=== PATIENT | male | born 1960 | race Hispanic/Latino ===

== ENCOUNTER 2017-05-02 06:02 | Emergency (ER) | payer MEDICAID, OTHER ==
[2017-05-02 07:06] LABS: Basophils % (Auto) 0.7 % (0.0-1.8); Eosinophils % (Auto) 4.6 % (0.0-4.3); Hematocrit 36.6 % (35.5-45.6); Hemoglobin 12.3 gm/dl (11.8-15.2); Mean Corpuscular HGB Conc 34 % (32-34); Mean Corpuscular Hemoglobin 29 pg (28-32); Mean Corpuscular Volume 87 fl (84-94); Platelet Count 158 K/mm3 (140-440); Red Blood Count 4.21 M/mm3 (3.65-5.03); Red Cell Distribution Width 16.4 % (13.2-15.2)
[2017-05-02 07:18] LABS: Alanine Aminotransferase 31 units/L (7-56); Albumin 4.4 g/dL (3.9-5); Albumin/Globulin Ratio 1.3 %; Alkaline Phosphatase 226 units/L (35-129); Anion Gap 18 mmol/L; Blood Urea Nitrogen 18 mg/dL (9-20); Calcium 9.2 mg/dL (8.4-10.2); Carbon Dioxide 30 mmol/L (22-30); Chloride 94.1 mmol/L (98-107); Glucose 132 mg/dL (75-100); Lipase 27 units/L (13-60); Potassium 3.7 mmol/L (3.6-5.0); Sodium 138 mmol/L (137-145); Total Protein 7.9 g/dL (6.3-8.2)
--- NOTE | 2017-05-02 11:30 | Emergency Department Report ---
ED Abdominal Pain HPI - General Chief Complaint: Abdominal Pain Stated Complaint: AB PAIN Time Seen by Provider: 05/02/17 11:22 Source: patient Mode of arrival: Wheelchair Limitations: No Limitations - History of Present Illness Initial Comments: Patient states "I think I have food poisoning". He states he started the afternoon yesterday with [place] fried chicken. Then later he had a bologna sandwich with pimento cheese. The patient states he's had a normal bowel movement since he's been here. He has persistent generalized abdominal pain and nausea. He states he vomited a minimal amount of white material. Complaint: abdominal pain -: Gradual, hour(s) Location: diffuse Radiation: none Migration to: no migration Severity: moderate Quality: aching Consistency: intermittent Improves With: nothing Worsens With: nothing Context: other Associated Symptoms: denies other symptoms - Related Data Home Medications Medication Instructions Recorded Confirmed Last Taken Aspirin [Aspirin BABY CHEW TAB] 81 mg PO QDAY 01/20/14 01/06/17 01/19/14 08:00 Potassium Chloride [Klor-Con 8] 20 meq PO QDAY 01/20/14 01/06/17 01/19/14 08:00 Spironolact/Hydrochlorothiazid 1 each PO QDAY 01/20/14 01/06/17 01/19/14 08:00 [Spironolactone-Hctz 25-25 Tab] Torsemide [Demadex] 100 mg PO QDAY 01/20/14 01/06/17 01/19/14 08:00 ALPRAZolam [ALPRAZolam Odt] 0.5 mg PO BID PRN 01/06/17 01/06/17 Unknown Atorvastatin Calcium [Lipitor] 40 mg PO QHS 01/06/17 01/06/17 Unknown Carvedilol [Coreg] 3.125 mg PO BID 01/06/17 01/06/17 Unknown Nitroglycerin [Nitrostat] 0.4 mg SL Q5M PRN 01/06/17 01/06/17 Unknown Coumadin 5 mg PO 5XW 01/09/17 01/09/17 Unknown Coumadin 7.5 mg PO 2XW 01/09/17 01/09/17 Unknown Previous Rx's Medication Instructions Recorded Last Taken Type Prednisone [predniSONE 5 mg (6-Day 5 mg PO .TAPER #1 tab.ds.pk 01/09/17 Unknown Rx Pack, 21 Tabs)] Ondansetron [Zofran Odt] 4 mg PO Q6H PRN #7 tab.rapdis 05/02/17 Unknown Rx traMADol [Ultram] 50 mg PO Q6HR PRN #10 tablet 05/02/17 Unknown Rx Allergies Allergy/AdvReac Type Severity Reaction Status Date / Time No Known Allergies Allergy Verified 01/20/14 00:59 ED Review of Systems ROS: Stated complaint: AB PAIN Other details as noted in HPI Constitutional: denies: chills, fever Eyes: denies: eye pain, eye discharge, vision change ENT: denies: ear pain, throat pain Respiratory: denies: cough, shortness of breath, wheezing Cardiovascular: denies: chest pain, palpitations Endocrine: no symptoms reported Gastrointestinal: abdominal pain, nausea. denies: diarrhea Genitourinary: denies: urgency, dysuria Musculoskeletal: denies: back pain, joint swelling, arthralgia Skin: denies: rash, lesions Neurological: denies: headache, weakness, paresthesias Psychiatric: denies: anxiety, depression Hematological/Lymphatic: denies: easy bleeding, easy bruising ED Past Medical Hx - Past Medical History Previous Medical History?: Yes Hx Heart Attack/AMI: No Hx Congestive Heart Failure: Yes Hx Diabetes: No Hx Liver Disease: No Hx Asthma: Yes Hx COPD: Yes Hx Tuberculosis: No Hx HIV: No Additional medical history: Hypotension - Surgical History Past Surgical History?: Yes Hx Coronary Stent: No Hx Open Heart Surgery: Yes Hx Pacemaker: Yes ((R) side) Hx Internal Defibrillator: Yes Hx Appendectomy: No Additional Surgical History: difibrillator heart valve replacement. heart bypass @ 6 months old. open heart at [facility] @ 12 years old. open heart x 5 @ [place]. pig valve - Social History Smoking Status: Never Smoker Substance Use Type: None - Medications Home Medications: Home Medications Medication Instructions Recorded Confirmed Last Taken Type Aspirin [Aspirin BABY CHEW TAB] 81 mg PO QDAY 01/20/14 01/06/17 01/19/14 08:00 History Potassium Chloride [Klor-Con 8] 20 meq PO QDAY 01/20/14 01/06/17 01/19/14 08:00 History Spironolact/Hydrochlorothiazid 1 each PO QDAY 01/20/14 01/06/17 01/19/14 08:00 History [Spironolactone-Hctz 25-25 Tab] Torsemide [Demadex] 100 mg PO QDAY 01/20/14 01/06/17 01/19/14 08:00 History ALPRAZolam [ALPRAZolam Odt] 0.5 mg PO BID PRN 01/06/17 01/06/17 Unknown History Atorvastatin Calcium [Lipitor] 40 mg PO QHS 01/06/17 01/06/17 Unknown History Carvedilol [Coreg] 3.125 mg PO BID 01/06/17 01/06/17 Unknown History Nitroglycerin [Nitrostat] 0.4 mg SL Q5M PRN 01/06/17 01/06/17 Unknown History Coumadin 5 mg PO 5XW 01/09/17 01/09/17 Unknown History Coumadin 7.5 mg PO 2XW 01/09/17 01/09/17 Unknown History Prednisone [predniSONE 5 mg (6-Day 5 mg PO .TAPER #1 tab.ds.pk 01/09/17 Unknown Rx Pack, 21 Tabs)] Ondansetron [Zofran Odt] 4 mg PO Q6H PRN #7 tab.rapdis 05/02/17 Unknown Rx traMADol [Ultram] 50 mg PO Q6HR PRN #10 tablet 05/02/17 Unknown Rx ED Physical Exam - General Limitations: No Limitations General appearance: alert, in no apparent distress - Head Head exam: Present: atraumatic, normocephalic - Eye Eye exam: Present: normal appearance. Absent: scleral icterus - ENT ENT exam: Present: normal exam, mucous membranes moist - Neck Neck exam: Present: normal inspection - Respiratory Respiratory exam: Present: normal lung sounds bilaterally. Absent: respiratory distress - Cardiovascular Cardiovascular Exam: Present: regular rate, normal rhythm. Absent: systolic murmur, diastolic murmur, rubs, gallop - GI/Abdominal GI/Abdominal exam: Present: soft, normal bowel sounds. Absent: distended, tenderness, guarding, rebound, rigid - Rectal Rectal exam: Present: deferred - Extremities Exam Extremities exam: Present: normal inspection - Back Exam Back exam: Present: normal inspection - Neurological Exam Neurological exam: Present: alert, oriented X3, CN II-XII intact. Absent: motor sensory deficit - Psychiatric Psychiatric exam: Present: normal affect, normal mood - Skin Skin exam: Present: warm, dry, intact, normal color. Absent: rash ED Course Vital Signs 05/02/17 05/02/17 05/02/17 06:21 12:30 12:32 Temperature 97.7 F Pulse Rate 50 L Respiratory 22 20 20 Rate Blood Pressure 146/69 Blood Pressure [Left] O2 Sat by Pulse 97 98 Oximetry 05/02/17 05/02/17 05/02/17 13:00 14:17 14:30 Temperature Pulse Rate Respiratory 20 Rate Blood Pressure 107/53 113/52 Blood Pressure [Left] O2 Sat by Pulse 98 Oximetry 05/02/17 05/02/17 05/02/17 14:45 15:00 15:10 Temperature Pulse Rate Respiratory 20 Rate Blood Pressure 95/52 114/53 Blood Pressure [Left] O2 Sat by Pulse 99 100 Oximetry 05/02/17 05/02/17 05/02/17 15:15 15:30 15:40 Temperature Pulse Rate Respiratory 20 Rate Blood Pressure 92/45 101/51 Blood Pressure [Left] O2 Sat by Pulse 100 99 Oximetry 05/02/17 05/02/17 05/02/17 15:45 16:01 16:25 Temperature 97.9 F Pulse Rate 70 Respiratory 18 Rate Blood Pressure 101/51 101/51 Blood Pressure 125/70 [Left] O2 Sat by Pulse 99 100 99 Oximetry - Reevaluation(s) Reevaluation #1: She was given IV fluids, analgesia, antiemetics. His discharge in improved condition. On reexamination of his abdomen was totally benign. CT report was explained to the patient. There are no indications for inpatient care at this time. 05/02/17 17:04 ED Medical Decision Making - Lab Data Result diagrams: 05/02/17 06:42 05/02/17 06:42 Laboratory Results - last 24 hr 05/02/17 05/02/17 06:42 06:42 WBC 9.0 RBC 4.21 Hgb 12.3 Hct 36.6 MCV 87 MCH 29 MCHC 34 RDW 16.4 H Plt Count 158 Lymph % (Auto) 6.2 L Candler % (Auto) 8.7 H Eos % (Auto) 4.6 H Baso % (Auto) 0.7 Lymph # 0.6 L Candler # 0.8 Eos # 0.4 Baso # 0.1 Seg Neutrophils % 79.8 H Seg Neutrophils # 7.2 Sodium 138 Potassium 3.7 Chloride 94.1 L Carbon Dioxide 30 Anion Gap 18 BUN 18 Creatinine 1.2 Estimated GFR > 60 BUN/Creatinine Ratio 15.00 Glucose 132 H Calcium 9.2 Total Bilirubin 0.70 AST 29 ALT 31 Alkaline Phosphatase 226 H Total Protein 7.9 Albumin 4.4 Albumin/Globulin Ratio 1.3 Lipase 27 - Radiology Data Radiology results: report reviewed Critical care attestation.: If time is entered above; I have spent that time in minutes in the direct care of this critically ill patient, excluding procedure time. ED Disposition Clinical Impression: Enteritis Abdominal pain Qualifiers: Abdominal location: generalized Qualified Code(s): R10.84 - Generalized abdominal pain Ventral hernia Qualifiers: Obstruction and gangrene presence: without obstruction or gangrene Qualified Code(s): K43.9 - Ventral hernia without obstruction or gangrene Disposition: TO HOME OR SELFCARE Is pt being admited?: No Does the pt Need Aspirin: No Condition: Stable Instructions: Gastroenteritis (ED) Additional Instructions: Follow-up with your family doctor. Rx as needed. Light diet and advance as tolerated. Prescriptions: Ondansetron [Zofran Odt] 4 mg PO Q6H PRN #7 tab.rapdis PRN Reason: Nausea traMADol [Ultram] 50 mg PO Q6HR PRN #10 tablet PRN Reason: Pain Referrals: GRETA JAUREGUI MD, PHD [Primary Care Provider] - 3-5 Days Time of Disposition: 15:30
[2017-05-02] MEDS ORDERED: ZOFRAN IV ONE (11:39)
[2017-05-02] MEDS ORDERED: MORPHINE IV ONE ×2 (11:39→15:16)
[2017-05-02] MEDS ORDERED: NACL 0.9% 1000 ML 1,000 ML IV ONE (11:39)
[2017-05-02] MEDS ORDERED: NACL ONE (12:00)
--- NOTE | 2017-05-02 14:21 | Cat Scan Report ---
CT scan of abdomen and pelvis with IV contrast: History: Diffuse abdominal pain. Findings: Peribronchial thickening left lower lung without significant interval change. No pleural or pericardial effusion. Normal liver spleen pancreas and gallbladder. Small sliding hiatal hernia. Normal pancreas appear normal adrenals. Subcentimeter to C6 left kidney. Normal bladder. No free intraperitoneal fluid or air. No evidence of adenopathy. Atherosclerotic abdominal aorta without aneurysm. Normal appendix. No evidence of diverticulitis. Small ventral hernia containing small bowel loops. Few distended loops of small bowel probably suggestive of enteritis. Gaseous colon with moderate volume stool in colon. Impression: Peribronchial thickening left lower lobe probably related to bronchiolitis, without significant interval change. Subcentimeter cysts left kidney. Small ventral hernia containing small bowel loop without evidence of obstruction. Few distended loops of small bowel without significant wall thickening or stranding. Probably nonspecific or related to enteritis. No evidence of bowel obstruction.
[2017-05-02 16:30] VITALS: BP 125/70
== END 2017-05-02 16:25 | disposition home or self-care (01) ==
LOC: ED 06:02
DX: K52.9 Noninfective gastroenteritis and colitis, unspecified (principal); R10.84 Generalized abdominal pain; K43.9 Ventral hernia without obstruction or gangrene; J44.9 Chronic obstructive pulmonary disease, unspecified
CPT/HCPCS: 36415; 74177; 80053; 83690; 85025; 96361; 96374; 96375; 96376; 99284; J2270; J2405; J7030; Q9967

== ENCOUNTER 2017-05-12 17:34 | Emergency (ER) | payer MEDICAID ==
--- NOTE | 2017-05-12 21:24 | Emergency Department Report ---
- General Chief complaint: Wound/Laceration Stated complaint: ABSCESS Time Seen by Provider: 05/12/17 21:00 Source: patient Mode of arrival: Ambulatory Limitations: No Limitations - History of Present Illness Initial comments: This is a 56-year-old male nontoxic, well nourished in appearance, no acute signs of distress presents to the ED complaining of abscess to the right neck region times one week. Patient stated it was small and is getting bigger now. Patient denies any trauma to the region. Denies pus or drainage. He stated it is tender to touch. Patient denies any fever, chills, nausea, vomiting, chest pain, shortness of breath, stiff neck, headache, numbness or tingling. Patient denies any allergies. Past medical history includes asthma, CHF, COPD. PAtient stated last tetanus shot in 2015. MD complaint: abscess/boil -: Gradual, week(s) (1) Tetanus Up to Date: yes Location: neck Severity: mild Severity scale (0 -10): 8 Quality: aching Consistency: constant Improves with: none Worsens with: none Context: none Associated symptoms: denies other symptoms Treatments Prior to Arrival: none - Related Data Home Medications Medication Instructions Recorded Confirmed Last Taken Aspirin [Aspirin BABY CHEW TAB] 81 mg PO QDAY 01/20/14 01/06/17 01/19/14 08:00 Potassium Chloride [Klor-Con 8] 20 meq PO QDAY 01/20/14 01/06/17 01/19/14 08:00 Spironolact/Hydrochlorothiazid 1 each PO QDAY 01/20/14 01/06/17 01/19/14 08:00 [Spironolactone-Hctz 25-25 Tab] Torsemide [Demadex] 100 mg PO QDAY 01/20/14 01/06/17 01/19/14 08:00 ALPRAZolam [ALPRAZolam Odt] 0.5 mg PO BID PRN 01/06/17 01/06/17 Unknown Atorvastatin Calcium [Lipitor] 40 mg PO QHS 01/06/17 01/06/17 Unknown Carvedilol [Coreg] 3.125 mg PO BID 01/06/17 01/06/17 Unknown Nitroglycerin [Nitrostat] 0.4 mg SL Q5M PRN 01/06/17 01/06/17 Unknown Coumadin 5 mg PO 5XW 01/09/17 01/09/17 Unknown Coumadin 7.5 mg PO 2XW 01/09/17 01/09/17 Unknown Previous Rx's Medication Instructions Recorded Last Taken Type Prednisone [predniSONE 5 mg (6-Day 5 mg PO .TAPER #1 tab.ds.pk 01/09/17 Unknown Rx Pack, 21 Tabs)] Ondansetron [Zofran Odt] 4 mg PO Q6H PRN #7 tab.rapdis 05/02/17 Unknown Rx traMADol [Ultram] 50 mg PO Q6HR PRN #10 tablet 05/02/17 Unknown Rx Sulfamethoxazole/Trimethoprim 1 each PO BID #14 tablet 05/12/17 Unknown Rx [Bactrim DS TAB] traMADol [Ultram] 50 mg PO Q6HR PRN #15 tablet 05/12/17 Unknown Rx Allergies Allergy/AdvReac Type Severity Reaction Status Date / Time No Known Allergies Allergy Verified 01/20/14 00:59 Abscess Boil HPI - HPI Chief Complaint: Wound/Laceration Stated Complaint: ABSCESS Time Seen by Provider: 05/12/17 21:00 Home Medications: Home Medications Medication Instructions Recorded Confirmed Last Taken Aspirin [Aspirin BABY CHEW TAB] 81 mg PO QDAY 01/20/14 01/06/17 01/19/14 08:00 Potassium Chloride [Klor-Con 8] 20 meq PO QDAY 01/20/14 01/06/17 01/19/14 08:00 Spironolact/Hydrochlorothiazid 1 each PO QDAY 01/20/14 01/06/17 01/19/14 08:00 [Spironolactone-Hctz 25-25 Tab] Torsemide [Demadex] 100 mg PO QDAY 01/20/14 01/06/17 01/19/14 08:00 ALPRAZolam [ALPRAZolam Odt] 0.5 mg PO BID PRN 01/06/17 01/06/17 Unknown Atorvastatin Calcium [Lipitor] 40 mg PO QHS 01/06/17 01/06/17 Unknown Carvedilol [Coreg] 3.125 mg PO BID 01/06/17 01/06/17 Unknown Nitroglycerin [Nitrostat] 0.4 mg SL Q5M PRN 05/22/17 05/22/17 Unknown Coumadin 5 mg PO 5XW 01/09/17 01/09/17 Unknown Coumadin 7.5 mg PO 2XW 01/09/17 01/09/17 Unknown Previous Rx's Medication Instructions Recorded Last Taken Type Prednisone [predniSONE 5 mg (6-Day 5 mg PO .TAPER #1 tab.ds.pk 01/09/17 Unknown Rx Pack, 21 Tabs)] Ondansetron [Zofran Odt] 4 mg PO Q6H PRN #7 tab.rapdis 05/02/17 Unknown Rx traMADol [Ultram] 50 mg PO Q6HR PRN #10 tablet 05/02/17 Unknown Rx Sulfamethoxazole/Trimethoprim 1 each PO BID #14 tablet 05/12/17 Unknown Rx [Bactrim DS TAB] traMADol [Ultram] 50 mg PO Q6HR PRN #15 tablet 05/12/17 Unknown Rx Allergies/Adverse Reactions: Allergies Allergy/AdvReac Type Severity Reaction Status Date / Time No Known Allergies Allergy Verified 01/20/14 00:59 ED Review of Systems ROS: Stated complaint: ABSCESS Other details as noted in HPI Constitutional: denies: chills, fever Eyes: denies: eye pain, eye discharge, vision change ENT: denies: ear pain, throat pain Respiratory: denies: cough, shortness of breath, wheezing Cardiovascular: denies: chest pain, palpitations Endocrine: no symptoms reported Gastrointestinal: denies: abdominal pain, nausea, diarrhea Genitourinary: denies: urgency, dysuria Musculoskeletal: denies: back pain, joint swelling, arthralgia Skin: denies: rash, lesions Neurological: denies: headache, weakness, paresthesias Psychiatric: denies: anxiety, depression Hematological/Lymphatic: denies: easy bleeding, easy bruising ED Past Medical Hx - Past Medical History Hx Heart Attack/AMI: No Hx Congestive Heart Failure: Yes Hx Diabetes: No Hx Liver Disease: No Hx Asthma: Yes Hx COPD: Yes Hx Tuberculosis: No Hx HIV: No Additional medical history: Hypotension - Surgical History Hx Coronary Stent: No Hx Open Heart Surgery: Yes Hx Pacemaker: Yes ((R) side) Hx Internal Defibrillator: Yes Hx Appendectomy: No Additional Surgical History: difibrillator heart valve replacement. heart bypass @ 6 months old. open heart at [facility] @ 12 years old. open heart x 5 @ [place]. pig valve - Social History Smoking Status: Never Smoker Substance Use Type: None - Medications Home Medications: Home Medications Medication Instructions Recorded Confirmed Last Taken Type Aspirin [Aspirin BABY CHEW TAB] 81 mg PO QDAY 01/20/14 01/06/17 01/19/14 08:00 History Potassium Chloride [Klor-Con 8] 20 meq PO QDAY 01/20/14 01/06/17 01/19/14 08:00 History Spironolact/Hydrochlorothiazid 1 each PO QDAY 01/20/14 01/06/17 01/19/14 08:00 History [Spironolactone-Hctz 25-25 Tab] Torsemide [Demadex] 100 mg PO QDAY 01/20/14 01/06/17 01/19/14 08:00 History ALPRAZolam [ALPRAZolam Odt] 0.5 mg PO BID PRN 01/06/17 01/06/17 Unknown History Atorvastatin Calcium [Lipitor] 40 mg PO QHS 01/06/17 01/06/17 Unknown History Carvedilol [Coreg] 3.125 mg PO BID 01/06/17 01/06/17 Unknown History Nitroglycerin [Nitrostat] 0.4 mg SL Q5M PRN 01/06/17 01/06/17 Unknown History Coumadin 5 mg PO 5XW 01/09/17 01/09/17 Unknown History Coumadin 7.5 mg PO 2XW 01/09/17 01/09/17 Unknown History Prednisone [predniSONE 5 mg (6-Day 5 mg PO .TAPER #1 tab.ds.pk 01/09/17 Unknown Rx Pack, 21 Tabs)] Ondansetron [Zofran Odt] 4 mg PO Q6H PRN #7 tab.rapdis 05/02/17 Unknown Rx traMADol [Ultram] 50 mg PO Q6HR PRN #10 tablet 05/02/17 Unknown Rx Sulfamethoxazole/Trimethoprim 1 each PO BID #14 tablet 05/12/17 Unknown Rx [Bactrim DS TAB] traMADol [Ultram] 50 mg PO Q6HR PRN #15 tablet 05/12/17 Unknown Rx ED Physical Exam - General Limitations: No Limitations General appearance: alert, in no apparent distress - Head Head exam: Present: atraumatic, normocephalic, normal inspection - Eye Eye exam: Present: normal appearance, PERRL, EOMI. Absent: scleral icterus, conjunctival injection, nystagmus, periorbital swelling, periorbital tenderness Pupils: Present: normal accommodation - ENT ENT exam: Present: normal exam, normal orophraynx, mucous membranes moist, TM's normal bilaterally, normal external ear exam - Neck Neck exam: Present: normal inspection, full ROM. Absent: tenderness, meningismus, lymphadenopathy, thyromegaly - Respiratory Respiratory exam: Present: normal lung sounds bilaterally. Absent: respiratory distress, wheezes, rales, rhonchi, stridor, chest wall tenderness, accessory muscle use, decreased breath sounds, prolonged expiratory - Cardiovascular Cardiovascular Exam: Present: regular rate, normal rhythm, normal heart sounds. Absent: bradycardia, tachycardia, irregular rhythm, systolic murmur, diastolic murmur, rubs, gallop - GI/Abdominal GI/Abdominal exam: Present: soft, normal bowel sounds. Absent: distended, tenderness, guarding, rebound, rigid, diminished bowel sounds - Rectal Rectal exam: Present: deferred - Extremities Exam Extremities exam: Present: normal inspection, full ROM, normal capillary refill. Absent: tenderness, pedal edema, joint swelling, calf tenderness - Back Exam Back exam: Present: normal inspection, full ROM. Absent: tenderness, CVA tenderness (R), CVA tenderness (L), muscle spasm, paraspinal tenderness, vertebral tenderness, rash noted - Neurological Exam Neurological exam: Present: alert, oriented X3, CN II-XII intact, normal gait, reflexes normal - Psychiatric Psychiatric exam: Present: normal affect, normal mood - Skin Skin exam: Present: warm, dry, intact, normal color. Absent: rash - Other Other exam information: 3 cm abscess in the right neck region. Positive induration and fluctuance. Surrounding erythema noted. No pus or drainage noted. ED Course Vital Signs 05/12/17 17:57 Temperature 97.4 F L Pulse Rate 62 Respiratory 16 Rate Blood Pressure 113/78 O2 Sat by Pulse 93 Oximetry - Reevaluation(s) Reevaluation #1: 05/12/17 21:22 Patient is speaking in full sentences with no signs of distress noted. Reevaluation #2: 05/12/17 21:23 Patient tolerated procedure well with no signs of distress. Patient was instructed to return in 2 days for packing removal and reassessment of abscess. - I & D Right Neck Type of Procedure: Complex Site: right neck region Blade Size: 11 I & D Procedure: betadine prep, sterile drapes applied, sterile dressing applied , gauze wick placed Progress: Under sterile field, I used Betadine to cleanse the area. I then used 0.5% Marcaine with 25-gauge 5/8 needle to inject area for anesthetic purposes. Total volume injected 3 mL. I then used an 11 blade to make a 1 cm incision. About 2 mL's of purulent drainage has been noted. I then used a hemostat superficial to break the abscess formation. I then used sterile 0.9% normal saline flush to flush the wound with total volume of 40 mL used. I then put a 1 /4 iodoform packing to the incision. A sterile 4 x 4 with tape has been applied as dressing. Bleeding is under control. Patient tolerated the procedure well with no signs of distress noted. Critical care attestation.: If time is entered above; I have spent that time in minutes in the direct care of this critically ill patient, excluding procedure time. ED Disposition Clinical Impression: Abscess Disposition: DC-01 TO HOME OR SELFCARE Is pt being admited?: No Does the pt Need Aspirin: No Condition: Stable Instructions: Abscess (ED), Abscess Incision and Drainage (ED), Sulfamethoxazole/Trimethoprim (By mouth), Tramadol (By mouth) Additional Instructions: follow-up with a primary care doctor in 3-5 days or if symptoms worsen and continue return to emergency room as soon as possible possible. Return in 2 days. Emergency room for packing removal and reassessment of the abscess. Do not operate any machinery while taking Ultram due to sedation/drowsiness. Prescriptions: Sulfamethoxazole/Trimethoprim [Bactrim DS TAB] 1 each PO BID #14 tablet traMADol [Ultram] 50 mg PO Q6HR PRN #15 tablet PRN Reason: Pain Referrals: PRIMARY MD EDWIN [Primary Care Provider] - 3-5 Days RYAN MILLER MD [Staff Physician] - 3-5 Days [facility] [Outside] - 3-5 Days [facility] [Outside] - 3-5 Days Forms: Work/School Release Form(ED)
[2017-05-12 23:38] VITALS: BP 114/43
== END 2017-05-12 22:45 | disposition home or self-care (01) ==
LOC: ED 17:34
DX: L02.11 Cutaneous abscess of neck (principal); J45.909 Unspecified asthma, uncomplicated; J44.9 Chronic obstructive pulmonary disease, unspecified; I50.9 Heart failure, unspecified; Z79.82 Long term (current) use of aspirin
CPT/HCPCS: 99282

== ENCOUNTER 2018-03-11 19:01 | Emergency (ER) | payer MEDICAID ==
[2018-03-11 19:48] VITALS: BP 137/75
[2018-03-11] MEDS ORDERED: MOTRIN PO ONE (19:52)
[2018-03-11] MEDS ORDERED: NORCO 7.5/325 ONE (20:10)
[2018-03-11] MEDS ORDERED: NORCO 7.5/325 PO ONE (20:13)
[2018-03-11] MEDS ORDERED: TYLENOL ONE (20:30)
[2018-03-11] MEDS ORDERED: TYLENOL PO ONE (20:34)
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
[2018-03-11] MEDS ORDERED: DILAUDID IM ONE (22:34)
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
== END 2018-03-12 00:10 | disposition home or self-care (01) ==
LOC: ED 19:01
DX: S52.542A Smith's fracture of left radius, initial encounter for closed fracture (principal); S52.602A Unspecified fracture of lower end of left ulna, initial encounter for closed fracture; I50.9 Heart failure, unspecified; J44.9 Chronic obstructive pulmonary disease, unspecified; I95.9 Hypotension, unspecified; F17.200 Nicotine dependence, unspecified, uncomplicated; Z79.899 Other long term (current) drug therapy; Z98.890 Other specified postprocedural states; Y04.2XXA Assault by strike against or bumped into by another person, initial encounter; Y93.89 Activity, other specified; Y92.89 Other specified places as the place of occurrence of the external cause; Y99.8 Other external cause status
CPT/HCPCS: 29125; 73100; 96372; 99284; J1170

== ENCOUNTER 2018-03-19 08:25 | Day surgery (SDC) | payer MEDICAID ==
[~2018-03-19 08:25] MED LIST: ANCEF/STERILE WATER 2 GM/20 ML IV NR
[2018-03-19] MEDS ORDERED: NACL BACTERIOSTATIC INFILTRATI ONE (09:35)
[2018-03-19 09:58] LABS: Basophils # (Auto) 0.1 K/mm3 (0.0-0.1); Basophils % (Auto) 1.1 % (0.0-1.8); Eosinophils # (Auto) 0.5 K/mm3 (0.0-0.4); Eosinophils % (Auto) 7.3 % (0.0-4.3); Hematocrit 36.4 % (35.5-45.6); Hemoglobin 12.4 gm/dl (11.8-15.2); Lymphocytes # (Auto) 0.6 K/mm3 (1.2-5.4); Lymphocytes % (Auto) 9.5 % (13.4-35.0); Mean Corpuscular HGB Conc 34 % (32-34); Mean Corpuscular Hemoglobin 30 pg (28-32); Mean Corpuscular Volume 89 fl (84-94); Monocytes # (Auto) 0.8 K/mm3 (0.0-0.8); Platelet Count 166 K/mm3 (140-440); Red Blood Count 4.11 M/mm3 (3.65-5.03); Red Cell Distribution Width 15.4 % (13.2-15.2)
[2018-03-19] MEDS ORDERED: LACTATED RINGERS 1,000 ML IV SCH (10:00)
[2018-03-19] MEDS ORDERED: PROVENTIL IH NR (10:00)
[2018-03-19] MEDS ORDERED: VERSED IV NR (10:00)
[2018-03-19] MEDS ORDERED: DECADRON ONE (10:07)
[2018-03-19] MEDS ORDERED: MARCAINE 0.5% 30 ML INFILTRATI ONE (10:07)
[2018-03-19 10:08] LABS: INR 0.92 (0.87-1.13)
[2018-03-19 10:09] LABS: Partial Thromboplastin Time 27.3 Sec. (24.2-36.6)
[2018-03-19 10:13] LABS: Alanine Aminotransferase 29 units/L (7-56); Albumin 4.2 g/dL (3.9-5); BUN/Creatinine Ratio 23; Blood Urea Nitrogen 14 mg/dL (9-20); Calcium 8.9 mg/dL (8.4-10.2); Hemolysis Index 7
[2018-03-19] MEDS ORDERED: ZOFRAN IV PRN (10:13)
--- NOTE | 2018-03-19 10:14 | Anesthesia Day of Surgery ---
Anesthesia Day of Surgery - Day of Surgery Patient Examined: Yes Patient H&P Reviewed: Yes Patient is NPO: Yes
--- NOTE | 2018-03-19 10:15 | Anesthesia Consultation ---
Anesthesia Consult and Med Hx Date of service: 03/19/18 - Airway Anesthetic Teeth Evaluation: Poor, Chipped ROM Head & Neck: Adequate Mental/Hyoid Distance: Adequate Mallampati Class: Class III Intubation Access Assessment: Possibly Difficult - Pulmonary Exam CTA: Yes - Cardiac Exam Cardiac Exam: RRR - Pre-Operative Health Status ASA Pre-Surgery Classification: ASA4 Proposed Anesthetic Plan: General (TOF Repair, PULM HTN, Smoker, HTN, ICD for V Tach, Afib off eliquis) - Pulmonary Hx Smoking: Yes (1 PACK PER WEEK) Hx Asthma: Yes SOB: Yes (SOB) COPD: Yes (INHALER PRN) Hx Pneumonia: Yes Hx Sleep Apnea: No (FRANTZ PRE SCREEN LOW RISK) - Cardiovascular System Hx Hypertension: No Hx Coronary Artery Disease: Yes Hx Heart Attack/AMI: No Hx Angina: Yes (LAST NITRO 3 YRS AGO) Hx Pacemaker: Yes Hx Internal Defibrillator: Yes Hx Valvular Heart Disease: Yes Hx Peripheral Vascular Disease: Yes (LEGS) - Central Nervous System Hx Back Pain: Yes - Endocrine Hx End Stage Renal Disease: No Hx Liver Disease: No - Hematic Hx Anemia: No - Other Systems Hx Cancer: No
[2018-03-19] MEDS ORDERED: DILAUDID IV SCH (12:00)
[2018-03-19] MEDS ORDERED: DIPRIVAN 10 MG/ML IV ONE (12:19)
[2018-03-19] MEDS ORDERED: XYLOCAINE MPF 2% ONE (12:19)
[2018-03-19] MEDS ORDERED: DILAUDID ONE (12:20)
[2018-03-19] MEDS ORDERED: MARCAINE-EPI 0.5%-1:200,000 INFILTRATI ONE (12:44)
[2018-03-19] MEDS ORDERED: ePHEDrine SULFATE ONE (12:48)
--- NOTE | 2018-03-19 14:35 | Procedure Note ---
Date of procedure: 03/19/18 Pre-op diagnosis: displaced left distal radius fracture Post-op diagnosis: same Procedure: Open reduction internal fixation left distal radius Procedure Patient was brought to the OR after being given a axillary nerve block in preoperative holding for postop pain management Patient was placed on the OR table supine followed by induction and intubation by anesthesia the left upper extremity was then prepped and draped in the usual sterile manner. A timeout procedure was done to identify the patient and the correct operative site. Next the arm was exsanguinated followed by inflation of the pneumatic tourniquet to 250 mmHg. A volar incision was made parallel to the flexor carpi radialis tendon was taken down sharply to skin and subcutaneous tendon was retracted as well as protection of the neurovascular bundle following this the quadratus tendon was incised and removed from the distal radius the fracture site was identified patient was noted to have some mild comminution volarly with C-arm visualization the fracture was then reduced using longitudinal traction a temporary K wire was used to transfix the reduction site next day small locked distal radius plate was applied to the distal radius and held by way of 2 K wires A AP and lateral film was obtained showing good reduction of the fracture placement of the locked plate following this the plate was then secured to the bone with various screws beginning with the distal fragment followed by stabilization of the proximal fragment with 2 locked screws and 1 nonlocking again AP and lateral views were obtained showing good reduction of the fracture and placement of the hardware next the wound was copiously irrigated and meniscectomy was in a standard routine fashion with mucosal dressings were applied as well as a well-padded volar splint patient tolerated the procedure well, occasions he was sent to postanesthesia recovery in stable condition Anesthesia: yoli ALANIS Surgeon: DIANE PATTON [employer] Architect: JOE LOPEZ Estimated blood loss: minimal Pathology: none Condition: stable Disposition: PACU
[2018-03-19] MEDS: DILAUDID IV PRN ×2 (14:55→15:05)
[2018-03-19] MEDS ORDERED: NORCO 7.5/325 PO PRN (15:51)
[2018-03-19] MEDS ORDERED: MARCAINE 0.25% INFILTRATI ONE (16:17)
[2018-03-19 16:36] VITALS: BP 116/44
--- NOTE | 2018-03-19 16:37 | XRay Report ---
FLUOROSCOPIC XRAY LEFT WRIST 2 VIEWS:03/19/18 08:25:00 CLINICAL: Radius fracture at ORIF. FINDINGS: Status post ORIF of previously described comminuted distal radius fracture. The alignment of fragments in the AP view is not significantly changed compared to 03/11/18. However, no angulation in the lateral view as identified previously. For more detail, please refer to the operative report.
--- NOTE | 2018-03-19 17:39 | Post Anesthesia Evaluation ---
- Post Anesthesia Evaluation Patient Participated: Yes Airway Patent: Yes Stable Respiratory Function: Yes Nausea/Vomiting: No Temp > 96.8F: Yes Pain Manageable: Yes Adequeate Hydration: Yes Anesthesia Complications: No
== END 2018-03-19 17:38 | disposition home or self-care (01) ==
LOC: OR 08:25
PROVIDERS: ATTEND Orthopaedic Surgery
DX: S52.502A Unspecified fracture of the lower end of left radius, initial encounter for closed fracture (principal); J44.9 Chronic obstructive pulmonary disease, unspecified; I25.118 Atherosclerotic heart disease of native coronary artery with other forms of angina pectoris; I48.91 Unspecified atrial fibrillation; I50.9 Heart failure, unspecified; E78.00 Pure hypercholesterolemia, unspecified; F41.9 Anxiety disorder, unspecified; F32.9 Major depressive disorder, single episode, unspecified; Z87.891 Personal history of nicotine dependence; Z95.0 Presence of cardiac pacemaker; Z98.890 Other specified postprocedural states; Z95.1 Presence of aortocoronary bypass graft; Z91.81 History of falling; X58.XXXA Exposure to other specified factors, initial encounter; Y93.89 Activity, other specified; Y92.89 Other specified places as the place of occurrence of the external cause; Y99.8 Other external cause status
CPT/HCPCS: 25609; 36415; 73100; 80053; 85025; 85610; 85730; C1713; J0690; J1100; J1170; J2250; J2704; J7120

== ENCOUNTER 2021-05-07 16:46 | Inpatient (IN) | payer MEDICAID ==
--- NOTE | 2021-05-07 17:14 | Event Note ---
ED Screening Note ED Screening Note: Patient is a 60-year-old male presents emergency complaints of shortness of breath and diarrhea that began 2 weeks ago He denies any cough or chest pain He states he has swelling to his bilateral lower extremities He has a past medical history of COPD, CHF, tetralogy of Fallot, A. fib Patient has a pacemaker He was sent by Dr. Jackson, ceramic tile installation helper for admission and for pulmonology consultation This initial assessment/diagnostic orders/clinical plan/treatment(s) is/are subject to change based on patients health status, clinical progression and re- assessment by fellow clinical providers in the ED. Further treatment and workup at subsequent clinical providers discretion. Patient/guardian urged not to elope from the ED as their condition may be serious if not clinically assessed and managed. Initial orders include: labs, EKG, CXR
--- NOTE | 2021-05-07 17:46 | Emergency Department Report ---
ED Shortness of Breath HPI - General Chief Complaint: Dyspnea/Respdistress Stated Complaint: ROXANA Time Seen by Provider: 05/07/21 17:05 Source: patient Mode of arrival: Ambulatory Limitations: No Limitations - History of Present Illness Initial Comments: Patient presents with shortness of breath. Has been short of breath the last 3 to 4 days but is progressively getting worse. He is having a hard time lying flat because of the trouble breathing. He does describe orthopnea. His feet and ankles have been swollen. He knows he is retaining fluid. He believes he needs to be diuresed. Patient has a long history of heart trouble. 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 He has had multiple open heart surgeries since that time. Patient has had no cough. He has had no fever. There have been no chills. There is no vomiting or diarrhea. He denies having chest pain to me. Patient states he just feels like he needs to get fluid off. He went to his employment office clerk today, Dr. Meyer. He was directed here to be admitted. - Related Data Home Medications Medication Instructions Recorded Confirmed Last Taken Aspirin [Aspirin BABY CHEW TAB] 81 mg PO QDAY 01/20/14 05/04/18 03/15/18 Potassium Chloride [Klor-Con 8] 20 meq PO QDAY 01/20/14 05/04/18 03/15/18 Spironolact/Hydrochlorothiazid 1 each PO QDAY 01/20/14 05/04/18 03/15/18 [Spironolactone-Hctz 25-25 Tab] Atorvastatin Calcium [Lipitor] 40 mg PO QHS 01/06/17 05/04/18 03/15/18 Nitroglycerin [Nitrostat] 0.4 mg SL Q5M PRN 01/06/17 05/04/18 05/04/18 20:30 Apixaban [Eliquis] 5 mg PO BID 03/16/18 05/04/18 03/15/18 Colchicine [Mitigare] 0.6 mg PO DAILY 03/16/18 05/04/18 03/15/18 Metoprolol [Lopressor TAB] 25 mg PO DAILY 03/16/18 05/04/18 03/15/18 allopurinoL [Zyloprim] 100 mg PO QDAY 03/16/18 05/04/18 03/15/18 Cetirizine HCl [Allergy Relief] 10 mg PO DAILY 03/18/18 05/04/18 03/15/18 Torsemide [Demadex] 100 mg PO QDAY 03/18/18 05/04/18 03/15/18 Previous Rx's Medication Instructions Recorded Last Taken Type HYDROcodone/APAP 7.5-325 [Desmet 1 each PO Q6HR PRN #30 tablet 03/19/18 Unknown Rx 7.5-325 mg TAB] ALPRAZolam [Xanax] 1 mg PO BID #7 tablet 05/06/18 Unknown Rx Albuterol Mdi (or & Nicu Only) 2 puff IH QID PRN #1 inha 05/06/18 Unknown Rx [ProAir HFA Inhaler] Azithromycin [Zithromax TAB] 250 mg PO QDAY #2 tablet 05/06/18 Unknown Rx Prednisone [predniSONE 5 mg (6-Day 5 mg PO .TAPER #1 tab.ds.pk 05/06/18 Unknown Rx Pack, 21 Tabs)] Allergies Allergy/AdvReac Type Severity Reaction Status Date / Time acetaminophen [From Percocet] AdvReac Nausea Verified 05/05/18 07:04 hydrocodone AdvReac Nausea Verified 05/07/21 18:16 tramadol AdvReac Nausea Verified 05/05/18 07:04 ED Review of Systems ROS: Stated complaint: ROXANA Other details as noted in HPI Comment: All other systems reviewed and negative Constitutional: denies: fever Eyes: denies: eye pain ENT: denies: throat pain Respiratory: denies: cough Cardiovascular: denies: chest pain Endocrine: denies: unexplained weight loss Gastrointestinal: denies: abdominal pain Genitourinary: denies: dysuria Musculoskeletal: denies: back pain Skin: denies: rash Neurological: denies: headache Hematological/Lymphatic: easy bruising (Chronically) ED Past Medical Hx - Past Medical History Hx Hypertension: Yes Hx Heart Attack/AMI: No Hx Congestive Heart Failure: Yes (2016) Hx Diabetes: No Hx Liver Disease: No Hx Asthma: Yes Hx COPD: Yes (INHALER PRN) Hx Tuberculosis: No Hx HIV: No Additional medical history: Hypotension - Surgical History Hx Coronary Stent: No Hx Open Heart Surgery: Yes (X 2 CHILD, CABG 2013) Hx Pacemaker: Yes Hx Internal Defibrillator: Yes Hx Appendectomy: No Additional Surgical History: difibrillator heart valve replacement. heart bypass @ 6 months old. open heart at [facility] @ 12 years old. open heart x 5 @ [place]. pig valve, pacemaker - Family History Family history: other (Heart disease) - Social History Smoking Status: Former Smoker Substance Use Type: None - Medications Home Medications: Home Medications Medication Instructions Recorded Confirmed Last Taken Type Aspirin [Aspirin BABY CHEW TAB] 81 mg PO QDAY 01/20/14 05/04/18 03/15/18 History Potassium Chloride [Klor-Con 8] 20 meq PO QDAY 01/20/14 05/04/18 03/15/18 History Spironolact/Hydrochlorothiazid 1 each PO QDAY 01/20/14 05/04/18 03/15/18 History [Spironolactone-Hctz 25-25 Tab] Atorvastatin Calcium [Lipitor] 40 mg PO QHS 01/06/17 05/04/18 03/15/18 History Nitroglycerin [Nitrostat] 0.4 mg SL Q5M PRN 01/06/17 05/04/18 05/04/18 20:30 History Apixaban [Eliquis] 5 mg PO BID 03/16/18 05/04/18 03/15/18 History Colchicine [Mitigare] 0.6 mg PO DAILY 03/16/18 05/04/18 03/15/18 History Metoprolol [Lopressor TAB] 25 mg PO DAILY 03/16/18 05/04/18 03/15/18 History allopurinoL [Zyloprim] 100 mg PO QDAY 03/16/18 05/04/18 03/15/18 History Cetirizine HCl [Allergy Relief] 10 mg PO DAILY 03/18/18 05/04/18 03/15/18 History Torsemide [Demadex] 100 mg PO QDAY 03/18/18 05/04/18 03/15/18 History HYDROcodone/APAP 7.5-325 [Desmet 1 each PO Q6HR PRN #30 tablet 03/19/18 05/04/18 Unknown Rx 7.5-325 mg TAB] ALPRAZolam [Xanax] 1 mg PO BID #7 tablet 05/06/18 Unknown Rx Albuterol Mdi (or & Nicu Only) 2 puff IH QID PRN #1 inha 05/06/18 Unknown Rx [ProAir HFA Inhaler] Azithromycin [Zithromax TAB] 250 mg PO QDAY #2 tablet 05/06/18 Unknown Rx Prednisone [predniSONE 5 mg (6-Day 5 mg PO .TAPER #1 tab.ds.pk 05/06/18 Unknown Rx Pack, 21 Tabs)] ED Physical Exam - General Limitations: No Limitations, Other (Pulse ox was 100% on oxygen and normal. He was not hypoxic.) General appearance: alert, in distress (Moderate) - Head Head exam: Present: atraumatic, normocephalic, normal inspection - Eye Eye exam: Present: EOMI. Absent: scleral icterus - ENT ENT exam: Present: normal exam, mucous membranes moist - Neck Neck exam: Present: normal inspection, full ROM. Absent: meningismus - Respiratory Respiratory exam: Present: respiratory distress (Moderate), rales (Basis) - Cardiovascular Cardiovascular Exam: Present: regular rate, systolic murmur - GI/Abdominal GI/Abdominal exam: Present: soft. Absent: distended, tenderness - Extremities Exam Extremities exam: Present: normal capillary refill, pedal edema (Lateral 1+) - Back Exam Back exam: Absent: CVA tenderness (R), CVA tenderness (L) - Neurological Exam Neurological exam: Present: alert, oriented X3, CN II-XII intact, reflexes normal. Absent: motor sensory deficit - Psychiatric Psychiatric exam: Present: normal affect, normal mood - Skin Skin exam: Present: warm, dry ED Course Vital Signs 05/07/21 05/07/21 17:33 18:17 Temperature 97.9 F Pulse Rate 89 Respiratory 16 Rate Blood Pressure 100/50 [Right] O2 Sat by Pulse 100 100 Oximetry - Reevaluation(s) Reevaluation #1: 05/07/21 17:46 IV labs have been ordered. All records have been reviewed. We will proceed with admission. Reevaluation #2: 05/07/21 18:23 Potassium replacement ordered. Reevaluation #3: 05/07/21 18:28 Case was discussed with the hospitalist who agrees to admit. ED Medical Decision Making - Lab Data Result diagrams: 05/07/21 17:30 05/07/21 17:30 - EKG Data -: EKG Interpreted by Me - EKG Data When compared to previous EKG there are: no significant change 05/07/21 18:28 EKG shows a paced rhythm at 71 with underlying ectopy. QRS is prolonged at 181. No further interpretation is made. - Radiology Data Radiology results: report reviewed - Medical Decision Making Patient presents secondary shortness of breath. He had been seen by his employment office clerk earlier today and sent here for admission. He does have evidence of volume overload. Patient appears to be dyspneic. He does have oxygen requirement. He is also hypokalemic. We have been addressing the potassium. We will diurese the patient gently given his soft blood pressures. He will be admitted to the hospitalist with a consult to cardiology as appropriate. Critical Care Time: No Critical care attestation.: If time is entered above; I have spent that time in minutes in the direct care of this critically ill patient, excluding procedure time. ED Disposition Clinical Impression: Shortness of breath, Hypokalemia CHF exacerbation Qualifiers: Heart failure type: combined systolic and diastolic Qualified Code(s): I50.43 - Acute on chronic combined systolic (congestive) and diastolic (congestive) heart failure Disposition: ADMITTED INPATIENT Is pt being admited?: Yes Does the pt Need Aspirin: No Condition: Stable Referrals: [facility] [Other] - 3-5 Days
[2021-05-07 17:58] LABS: Basophils % (Auto) 0.6 % (0.0-1.8); Eosinophils # (Auto) 0.2 K/mm3 (0.0-0.4); Eosinophils % (Auto) 2.4 % (0.0-4.3); Hematocrit 28.4 % (35.5-45.6); Hemoglobin 9.2 gm/dl (11.8-15.2); Lymphocytes # (Auto) 0.3 K/mm3 (1.2-5.4); Mean Corpuscular HGB Conc 32 % (32-34); Mean Corpuscular Volume 72 fl (84-94); Monocytes % (Auto) 15.2 % (0.0-7.3); Platelet Count 330 K/mm3 (140-440); Red Blood Count 3.94 M/mm3 (3.65-5.03); Red Cell Distribution Width 19.6 % (13.2-15.2)
[2021-05-07 18:17] LABS: Alanine Aminotransferase 45 units/L (7-56); Albumin 2.2 g/dL (3.9-5); BUN/Creatinine Ratio 16; Blood Urea Nitrogen 13 mg/dL (9-20); Hemolysis Index 4
[2021-05-07] MEDS ORDERED: POTASSIUM CHLORIDE ER 20 MEQ TAB PO ONE (18:22)
--- NOTE | 2021-05-07 18:23 | XRay Report ---
CHEST 2 VIEWS INDICATION / CLINICAL INFORMATION: SOB. COMPARISON: 12/23/2018 FINDINGS: SUPPORT DEVICES: Right subclavian ICD lead has tip in right ventricle. HEART / MEDIASTINUM: Sternotomy and moderate cardiomegaly. LUNGS / PLEURA: No significant pulmonary or pleural abnormality. No pneumothorax. ADDITIONAL FINDINGS: No significant additional findings. IMPRESSION: 1. No acute findings. Signer Name: Jordon Hawkins MD Signed: 05/07/2021 6:18 PM Workstation Name: [id number]
[2021-05-07] MEDS: POTASSIUM CHLORIDE 10 MEQ 10 MEQ/100 ML BAG IV SCH ×2 (19:58→23:50)
[2021-05-07] MEDS ORDERED: SODIUM CHLORIDE 0.9% 1000 ML 1,000 ML ONE (20:04)
[2021-05-07] MEDS ORDERED: ALBUTEROL 8.5 GM MDI INHALATION IH PRN (20:23)
[2021-05-07] MEDS ORDERED: ONDANSETRON 4 MG/2 ML INJ IV PRN (20:25)
[2021-05-07] MEDS ORDERED: ACETAMINOPHEN 325 MG TAB PO PRN (20:25)
[2021-05-07] MEDS ORDERED: MORPHINE 2 MG/1 ML INJ IV PRN (20:34)
[2021-05-07] MEDS ORDERED: HYDROmorphone 1 MG/1 ML INJ IV PRN (20:34)
--- NOTE | 2021-05-07 20:56 | History and Physical Report ---
History of Present Illness Date of examination: 05/07/21 Date of admission: 05/07/21 18:27 Chief complaint: Shortness of breath for 3 to 4 days History of present illness: 60-year-old male with history of heart surgery at 6 months of age for tetralogy Fallot comes in for increasing shortness of breath and difficulty lying flat. His feet and ankles are not swollen. Patient has been retaining fluid and has worsening shortness of breath over the last 3 to 4 days. Patient follows with [facility] the [facility] and his applied psychology teacher is Dr. Jackson. No fever or chills. No loss of taste. No exposure to coronavirus. Patient does not smoke. Patient is vaccinated. Patient was sent by [facility] the [facility] for further evaluation and treatment. And for worsening of shortness of breath. - Past Medical History --Hypertension: Yes --Congestive Heart Failure: Yes (2016) --Asthma: Yes --COPD: Yes (INHALER PRN) - Surgical History --Coronary Stent: No --Open Heart Surgery: Yes (X 2 CHILD, CABG 2013) --Pacemaker: Yes --Internal Defibrillator: Yes Additional Surgical History: difibrillator heart valve replacement. heart bypass @ 6 months old. open heart at [facility] @ 12 years old. open heart x 5 @ [place]. pig valve, pacemaker - Family History Family history: other (Heart disease) - Social History Smoking Status: Former Smoker Substance Use Type: None Review of Systems ROS: Stated complaint: ROXANA Other details as noted in HPI Comment: All other systems reviewed and negative Constitutional: denies: fever Eyes: denies: eye pain ENT: denies: throat pain Respiratory: denies: cough Cardiovascular: denies: chest pain Endocrine: denies: unexplained weight loss Gastrointestinal: denies: abdominal pain Genitourinary: denies: dysuria Musculoskeletal: denies: back pain Skin: denies: rash Neurological: denies: headache Hematological/Lymphatic: easy bruising (Chronically) Medications and Allergies Allergies Allergy/AdvReac Type Severity Reaction Status Date / Time acetaminophen [From Percocet] AdvReac Nausea Verified 05/07/21 18:34 hydrocodone AdvReac Nausea Verified 05/07/21 18:34 tramadol AdvReac Nausea Verified 05/07/21 18:34 Home Medications Medication Instructions Recorded Confirmed Last Taken Type Aspirin [Aspirin BABY CHEW TAB] 81 mg PO QDAY 01/20/14 05/07/21 03/15/18 History Potassium Chloride [Klor-Con 8] 20 meq PO QDAY 01/20/14 05/07/21 03/15/18 History Atorvastatin Calcium [Lipitor] 40 mg PO QHS 01/06/17 05/07/21 03/15/18 History Apixaban [Eliquis] 5 mg PO BID 03/16/18 05/07/21 03/15/18 History Colchicine [Mitigare] 0.6 mg PO DAILY 03/16/18 05/07/21 03/15/18 History Metoprolol [Lopressor TAB] 25 mg PO DAILY 03/16/18 05/07/21 03/15/18 History Torsemide [Demadex] 100 mg PO QDAY 03/18/18 05/07/21 03/15/18 History Albuterol Mdi (or & Nicu Only) 2 puff IH QID PRN #1 inha 05/06/18 05/07/21 Unknown Rx [ProAir HFA Inhaler] Active Meds: Active Medications Potassium Chloride (Kcl 10meq/100ml) 10 meq in 100 mls @ 100 mls/hr IV Q1H PRERNA Stop: 05/07/21 22:59 Last Admin: 05/07/21 19:58 Dose: 100 mls/hr Documented by: Exam - Constitutional Vitals: Temp Pulse Resp BP Pulse Ox 97.9 F 68 14 91/45 100 05/07/21 17:33 05/07/21 20:01 05/07/21 20:01 05/07/21 20:01 05/07/21 20:01 General appearance: Present: mild distress, well-nourished - EENT Eyes: Present: PERRL ENT: hearing intact, clear oral mucosa - Neck Neck: Present: supple, normal ROM - Respiratory Respiratory effort: normal Respiratory: bilateral: CTA, rales (Scattered) - Cardiovascular Heart rate: 88 Rhythm: regular Heart Sounds: Present: S1 & S2. Absent: rub, click - Extremities Extremities: pulses symmetrical Extremity abnormal: edema (2+ pitting edema) Peripheral Pulses: within normal limits - Abdominal General gastrointestinal: Present: soft, non-tender, non-distended, normal bowel sounds Male genitourinary: Present: normal - Integumentary Integumentary: Present: clear, warm, dry - Musculoskeletal Musculoskeletal: gait normal, strength equal bilaterally - Psychiatric Psychiatric: appropriate mood/affect, intact judgment & insight - Neurologic Neurologic: CNII-XII intact, moves all extremities - Allied Health Allied health notes reviewed: nursing, case management HEART Score - HEART Score History: Moderately suspicious EKG: Non-specific Age: 45-65 Risk factors: 1-2 risk factors Troponin: Troponin T < 0.010 ng/mL (0.00-0.029) 05/07/21 17:30 Troponin: < normal limit HEART Score: 4 - Critical Actions Critical Actions: 0-3 pts:0.9-1.7%risk of adverse cardiac event.Candidate for discharge Results - Labs CBC & Chem 7: 05/07/21 17:30 05/07/21 17:30 Labs: Laboratory Last Values WBC 6.4 K/mm3 (4.5-11.0) 05/07/21 17:30 RBC 3.94 M/mm3 (3.65-5.03) 05/07/21 17:30 Hgb 9.2 gm/dl (11.8-15.2) L 05/07/21 17:30 Hct 28.4 % (35.5-45.6) L 05/07/21 17:30 MCV 72 fl (84-94) L 05/07/21 17:30 MCH 23 pg (28-32) L 05/07/21 17:30 MCHC 32 % (32-34) 05/07/21 17:30 RDW 19.6 % (13.2-15.2) H 05/07/21 17:30 Plt Count 330 K/mm3 (140-440) 05/07/21 17:30 Lymph % (Auto) 5.0 % (13.4-35.0) L 05/07/21 17:30 Placer % (Auto) 15.2 % (0.0-7.3) H 05/07/21 17:30 Eos % (Auto) 2.4 % (0.0-4.3) 05/07/21 17:30 Baso % (Auto) 0.6 % (0.0-1.8) 05/07/21 17:30 Lymph # (Auto) 0.3 K/mm3 (1.2-5.4) L 05/07/21 17:30 Placer # (Auto) 1.0 K/mm3 (0.0-0.8) H 05/07/21 17:30 Eos # (Auto) 0.2 K/mm3 (0.0-0.4) 05/07/21 17:30 Baso # (Auto) 0.0 K/mm3 (0.0-0.1) 05/07/21 17:30 Seg Neutrophils % 76.8 % (40.0-70.0) H 05/07/21 17:30 Seg Neutrophils # 4.9 K/mm3 (1.8-7.7) 05/07/21 17:30 Sodium 134 mmol/L (137-145) L 05/07/21 17:30 Potassium 2.7 mmol/L (3.6-5.0) L* 05/07/21 17:30 Chloride 92.3 mmol/L (98-107) L 05/07/21 17:30 Carbon Dioxide 29 mmol/L (22-30) 05/07/21 17:30 Anion Gap 15 mmol/L 05/07/21 17:30 BUN 13 mg/dL (9-20) 05/07/21 17:30 Creatinine 0.8 mg/dL (0.8-1.3) 05/07/21 17:30 Estimated GFR > 60 ml/min 05/07/21 17:30 BUN/Creatinine Ratio 16 % 05/07/21 17:30 Glucose 90 mg/dL (75-100) 05/07/21 17:30 Calcium 6.0 mg/dL (8.4-10.2) L 05/07/21 17:30 Magnesium 1.00 mg/dL (1.7-2.3) L 05/07/21 17:30 Total Bilirubin 0.50 mg/dL (0.1-1.2) 05/07/21 17:30 AST 47 units/L (5-40) H 05/07/21 17:30 ALT 45 units/L (7-56) 05/07/21 17:30 Alkaline Phosphatase 276 units/L (35-129) H 05/07/21 17:30 Troponin T < 0.010 ng/mL (0.00-0.029) 05/07/21 17:30 NT-Pro-B Natriuret Pep 2308 pg/mL (0-900) H 05/07/21 17:30 Total Protein 4.4 g/dL (6.3-8.2) L 05/07/21 17:30 Albumin 2.2 g/dL (3.9-5) L 05/07/21 17:30 Albumin/Globulin Ratio 1.0 % 05/07/21 17:30 Short CBC 05/07/21 05/08/21 Range/Units 17:30 05:43 WBC 6.4 5.8 (4.5-11.0) K/mm3 Hgb 9.2 L 8.8 L (11.8-15.2) gm/dl Hct 28.4 L 28.2 L (35.5-45.6) % Plt Count 330 323 (140-440) K/mm3 BMP 05/07/21 17:30 Sodium 134 L Potassium 2.7 L* Chloride 92.3 L Carbon Dioxide 29 BUN 13 Creatinine 0.8 Glucose 90 Calcium 6.0 L Cardiac Enzymes 05/07/21 Range/Units 17:30 Troponin T < 0.010 (0.00-0.029) ng/mL Liver Function 05/07/21 Range/Units 17:30 Total Bilirubin 0.50 (0.1-1.2) mg/dL AST 47 H (5-40) units/L ALT 45 (7-56) units/L Alkaline Phosphatase 276 H (35-129) units/L Albumin 2.2 L (3.9-5) g/dL Assessment and Plan Advance Directives: Yes (Full code) VTE prophylaxis?: Chemical Plan of care discussed with patient/family: Yes - Patient Problems (1) Acute respiratory failure with hypoxia Current Visit: Yes Status: Acute Plan to address problem: Patient is hypoxic on room air Please supplemental oxygen (2) Acute exacerbation of congestive heart failure Current Visit: Yes Status: Acute Qualifiers: Heart failure type: combined systolic and diastolic Qualified Code(s): I50.43 - Acute on chronic combined systolic (congestive) and diastolic (congestive) heart failure Plan to address problem: Check echocardiogram for ejection fraction IV Lasix and potassium for now Daily weights Daily intake and output Cardiology consult (3) COPD (chronic obstructive pulmonary disease) Current Visit: Yes Status: Chronic Qualifiers: COPD type: emphysema Plan to address problem: Nebulizer treatments as needed (4) Anemia Current Visit: Yes Status: Chronic Qualifiers: Anemia type: unspecified type Qualified Code(s): D64.9 - Anemia, unspecified Plan to address problem: Anemia work-up (5) Hypomagnesemia Current Visit: Yes Status: Acute Plan to address problem: Supplemented (6) Hypokalemia Current Visit: Yes Status: Acute Plan to address problem: Supplemented (7) Malnutrition Current Visit: Yes Status: Chronic Qualifiers: Protein-calorie malnutrition severity: moderate Plan to address problem: Dietary supplements for now (8) DVT prophylaxis Current Visit: Yes Status: Acute Plan to address problem: On anticoagulation GI prophylaxis
[2021-05-07] MEDS: FAMOTIDINE 20 MG TAB PO SCH (23:51)
[2021-05-07] MEDS: POTASSIUM CHLORIDE ER 20 MEQ TAB PO SCH (23:51)
[2021-05-07] MEDS: APIXABAN 5 MG TAB PO SCH (23:51)
[2021-05-08] MEDS: POTASSIUM CHLORIDE 10 MEQ 10 MEQ/100 ML BAG IV SCH ×2 (01:17→02:41)
[2021-05-08] MEDS ORDERED: FUROSEMIDE 40 MG/4 ML INJ IV SCH (06:00)
[2021-05-08 06:16] LABS: Hematocrit 28.2 % (35.5-45.6); Hemoglobin 8.8 gm/dl (11.8-15.2); Mean Corpuscular HGB Conc 31 % (32-34); Mean Corpuscular Volume 72 fl (84-94); Platelet Count 323 K/mm3 (140-440); Red Blood Count 3.91 M/mm3 (3.65-5.03); Red Cell Distribution Width 19.7 % (13.2-15.2)
[2021-05-08] MEDS ORDERED: MAGNESIUM SULFATE 2 GM/50 ML BAG IV ONE (06:34)
[2021-05-08 06:35] LABS: Alanine Aminotransferase 40 units/L (7-56); BUN/Creatinine Ratio 15; Blood Urea Nitrogen 12 mg/dL (9-20); Calcium 6.1 mg/dL (8.4-10.2); Hemolysis Index 2
[2021-05-08] MEDS ORDERED: SODIUM CHLORIDE 0.9% IV SCH (07:00)
[2021-05-08] MEDS ORDERED: POTASSIUM CHLORIDE IV SCH (07:00)
[2021-05-08] MEDS ORDERED: POTASSIUM CHLORIDE 10 MEQ 10 MEQ/100 ML BAG IV SCH (07:00)
[2021-05-08] MEDS ORDERED: MAGNESIUM SULFATE IV SCH (07:00)
[2021-05-08 07:13] LABS: % Iron Saturation 8.63 %
[2021-05-08] MEDS ORDERED: METOPROLOL TARTRATE 25 MG TAB PO SCH (10:00)
[2021-05-08] MEDS: POTASSIUM CHLORIDE ER 20 MEQ TAB PO SCH ×5 (10:50→21:38)
[2021-05-08] MEDS: FAMOTIDINE 20 MG TAB PO SCH ×2 (10:51→21:37)
[2021-05-08] MEDS: ASPIRIN 81 MG TAB CHEW PO SCH (10:51)
[2021-05-08] MEDS: APIXABAN 5 MG TAB PO SCH ×2 (10:51→21:37)
--- NOTE | 2021-05-08 11:13 | Consultation ---
History of Present Illness Consult date: 05/08/21 Consult reason: shortness of breath History of present illness: Patient is a 60-year-old man with a long complex cardiac history of congenital heart disease. He was diagnosed with Tetralogy of Fallot, a "blue baby" at . Subsequently beginning at age 12 into his early adulthood he had several thoracic surgeries to repair the Tetralogy of Fallot, and he has a bioprosthetic pulmonary valve replacement and tricuspid annular repair. 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 He has chronic persistent atrial fibrillation on a rate control strategy and oral anticoagulation. There is a single-chamber cardiac defibrillator in situ, presents will indicate possible history of tachyarrhythmia originating from the right ventricle. In addition to his cardiac disease, he also has severe pulmonary disease. 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 Most recent echocardiogram in the hospital system done 3 years ago, showed evidence of severe cor pulmonale with marked dilatation of the right heart chambers. Conversely, there was normal left ventricular chamber size and systolic function, ejection fraction 55 to 60%. 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 EKG is atrial fibrillation with a ventricular pacemaker on demand. Chest x-ray shows severe cardiomegaly, but clear lungs with no edema or infiltrates. Past History Past Medical History: atrial fib, heart failure (Right-sided heart failure), other (Congenital heart disease, Tetralogy of Fallot) Medications and Allergies Allergies Allergy/AdvReac Type Severity Reaction Status Date / Time acetaminophen [From Percocet] AdvReac Nausea Verified 05/07/21 18:34 hydrocodone AdvReac Nausea Verified 05/07/21 18:34 tramadol AdvReac Nausea Verified 05/07/21 18:34 Home Medications Medication Instructions Recorded Confirmed Last Taken Type Aspirin [Aspirin BABY CHEW TAB] 81 mg PO QDAY 01/20/14 05/07/21 03/15/18 History Potassium Chloride [Klor-Con 8] 20 meq PO QDAY 01/20/14 05/07/21 03/15/18 History Atorvastatin Calcium [Lipitor] 40 mg PO QHS 01/06/17 05/07/21 03/15/18 History Apixaban [Eliquis] 5 mg PO BID 03/16/18 05/07/21 03/15/18 History Colchicine [Mitigare] 0.6 mg PO DAILY 03/16/18 05/07/21 03/15/18 History Metoprolol [Lopressor TAB] 25 mg PO DAILY 03/16/18 05/07/21 03/15/18 History Torsemide [Demadex] 100 mg PO QDAY 03/18/18 05/07/21 03/15/18 History Albuterol Mdi (or & Nicu Only) 2 puff IH QID PRN #1 inha 05/06/18 05/07/21 Unknown Rx [ProAir HFA Inhaler] Active Meds: Active Medications Acetaminophen (Acetaminophen 325 Mg Tab) 650 mg PO Q4H PRN PRN Reason: Pain MILD(1-3)/Fever >100.5/ERAZO Albuterol (Albuterol 2.5 Mg/3 Ml Nebu) 2.5 mg IH QID PRN PRN Reason: Shortness Of Breath Apixaban (Apixaban 5 Mg Tab) 5 mg PO BID [facility] Last Admin: 05/08/21 10:51 Dose: 5 mg Documented by: Aspirin (Aspirin 81 Mg Tab Chew) 81 mg PO QDAY [facility] Last Admin: 05/08/21 10:51 Dose: 81 mg Documented by: Atorvastatin Calcium (Atorvastatin 20 Mg Tab) 40 mg PO QHS [facility] Last Admin: 05/07/21 23:52 Dose: 40 mg Documented by: Colchicine (Colchicine 0.6 Mg Tab) 0.6 mg PO DAILY [facility] Famotidine (Famotidine 20 Mg Tab) 20 mg PO BID [facility] Last Admin: 05/08/21 10:51 Dose: 20 mg Documented by: Furosemide (Furosemide 40 Mg/4 Ml Inj) 40 mg IV 0600,1800 [facility] Last Admin: 05/08/21 05:35 Dose: 40 mg Documented by: Hydromorphone HCl (Hydromorphone 1 Mg/1 Ml Inj) 0.5 mg IV Q3H PRN PRN Reason: Pain , Severe (7-10) Last Admin: 05/08/21 00:02 Dose: 0.5 mg Documented by: Metoprolol Tartrate (Metoprolol Tartrate 25 Mg Tab) 25 mg PO DAILY [facility] Last Admin: 05/08/21 10:51 Dose: 25 mg Documented by: Morphine Sulfate (Morphine 2 Mg/1 Ml Inj) 2 mg IV Q4H PRN PRN Reason: Pain, Moderate (4-6) Ondansetron HCl (Ondansetron 4 Mg/2 Ml Inj) 4 mg IV Q8H PRN PRN Reason: Nausea And Vomiting Potassium Chloride (Potassium Chloride Er 20 Meq Tab) 20 meq PO Q12H [facility] Last Admin: 05/07/21 23:51 Dose: 20 meq Documented by: Potassium Chloride (Potassium Chloride Er 20 Meq Tab) 40 meq PO Q4H [facility] Stop: 05/08/21 15:01 Last Admin: 05/08/21 10:50 Dose: 40 meq Documented by: Sodium Chloride (Sodium Chloride 0.9% 10 Ml Flush Syringe) 10 ml IV BID [facility] Last Admin: 05/08/21 10:51 Dose: 10 ml Documented by: Sodium Chloride (Sodium Chloride 0.9% 10 Ml Flush Syringe) 10 ml IV PRN PRN PRN Reason: LINE FLUSH Review of Systems Cardiovascular: edema, shortness of breath, no chest pain, no orthopnea, no palpitations, no rapid/irregular heart beat, no syncope, no lightheadedness Physical Examination Vital Signs Temp Pulse Resp BP Pulse Ox 97.9 F 89 16 100/50 100 05/07/21 17:33 05/07/21 17:33 05/07/21 17:33 05/07/21 17:33 05/07/21 17:33 General appearance: no acute distress HEENT: Positive: PERRL Neck: Positive: neck supple Cardiac: Positive: irregularly irregular Lungs: Positive: Decreased Breath Sounds Neuro: Positive: Grossly Intact Abdomen: Positive: Soft Male genitourinary: Positive: deferred Skin: Positive: Clear Extremities: Present: edema (Trace) Results 05/08/21 05:43 05/08/21 05:43 Cardiac Enzymes 05/07/21 05/08/21 Range/Units 17:30 05:43 AST 47 H 44 H (5-40) units/L CBC 05/07/21 05/08/21 Range/Units 17:30 05:43 WBC 6.4 5.8 (4.5-11.0) K/mm3 RBC 3.94 3.91 (3.65-5.03) M/mm3 Hgb 9.2 L 8.8 L (11.8-15.2) gm/dl Hct 28.4 L 28.2 L (35.5-45.6) % Plt Count 330 323 (140-440) K/mm3 Lymph # (Auto) 0.3 L (1.2-5.4) K/mm3 Leon # (Auto) 1.0 H (0.0-0.8) K/mm3 Eos # (Auto) 0.2 (0.0-0.4) K/mm3 Baso # (Auto) 0.0 (0.0-0.1) K/mm3 Comprehensive Metabolic Panel 05/07/21 05/08/21 Range/Units 17:30 05:43 Sodium 134 L 132 L (137-145) mmol/L Potassium 2.7 L* 4.0 D (3.6-5.0) mmol/L Chloride 92.3 L 95.1 L (98-107) mmol/L Carbon Dioxide 29 30 (22-30) mmol/L BUN 13 12 (9-20) mg/dL Creatinine 0.8 0.8 (0.8-1.3) mg/dL Glucose 90 95 (75-100) mg/dL Calcium 6.0 L 6.1 L (8.4-10.2) mg/dL AST 47 H 44 H (5-40) units/L ALT 45 40 (7-56) units/L Alkaline Phosphatase 276 H 248 H (35-129) units/L Total Protein 4.4 L 4.4 L (6.3-8.2) g/dL Albumin 2.2 L 2.0 L (3.9-5) g/dL EKG interpretations - Telemetry EKG Rhythm: Atrial Fibrillation (With ventricular pacing on demand) Assessment and Plan - Patient Problems (1) Edema Current Visit: Yes Status: Acute Plan to address problem: Patient's lower extremity edema is due to venous hypertension from his right- sided heart failure and COPD. No clinical or historical evidence of left ventricular dysfunction or left ventricular failure. We will continue diuretics, and aggressive management of COPD and pulmonary hypertension. (2) Right-sided heart failure Current Visit: Yes Status: Acute Plan to address problem: Right-sided heart failure following complications of Tetralogy of Fallot, continue management of pulmonary hypertension and patient is awaiting set up of ambulatory home-based oxygen therapy. (3) Chronic atrial fibrillation Current Visit: Yes Status: Acute Plan to address problem: Patient has chronic atrial fibrillation, on a rate control strategy and oral anticoagulation with Eliquis.
--- NOTE | 2021-05-08 11:41 | Electrocardiograph Report ---
[facility] Test Date: 2021-05-07 Test Time: 17:24:08 Pat Name: ZENAIDA CORTEZ Department: Room: A454 1 Gender: M Certified Paralegal: ROLANDO : 1960 Requested By: DOROTHY SALGADO Order Number: [id number] Reading MD: Farooq Farah Measurements Intervals [place] Rate: 71 P: KS: QRS: 259 QRSD: 181 T: 90 QT: 515 QTc: 562 Interpretive Statements Afib/flut and V-paced complexes No previous ECG available for comparison Electronically Signed On 05-08-2021 11:40:44 EDT by Farooq Farah
[2021-05-08 12:26] LABS: Total Cells Counted 100
[2021-05-08 12:27] LABS: Giant Platelets Rare; Hypochromasia 1+; Ovalocytes Few; Platelet Estimate Consistent w Auto; Poikilocytosis 1+
[2021-05-08] MEDS ORDERED: BUMETANIDE 1 MG/4 ML INJ IV NR (13:00)
[2021-05-08] MEDS: HYDROcodone/ACETAMINOPHEN 5-325 MG TAB PO PRN (14:40)
[2021-05-08] MEDS: COLCHICINE 0.6 MG TAB PO SCH (15:15)
--- NOTE | 2021-05-08 17:22 | Progress Note ---
Assessment and Plan Assessment and plan: #Acute on chronic HF exacerbation - Continue CHF exacerbation protocol: Strict I/O, monitor urine output every shift, daily weights, afterload reduction, low-sodium diet, and fluid restriction of approximately 1.5 mL/day - Supplemental oxygen: 2 L - Cardiology consulted; appreciate recs - TTE (05/08/2021) pending -Switched from IV Lasix 40 mg twice daily to IV Bumex 1 mg twice daily due to side effects reported by patient. Placed hold parameters due to episode of low blood pressure #Acute hypoxic respiratory failure #COPD -Currently on 2 L nasal cannula (baseline of 2 L at home) -Patient endorses no longer having home oxygen due to social issues with brother -Order placed for home oxygen upon discharge -No concern for COPD exacerbation given lack of fever, increased sputum, or sign of possible infection -Continue nebulizer treatment #Anemia -Hemoglobin 8.8; pending work-up #Hypomagnesemia -Repleted and will continue to monitor #Hypokalemia -Repleted and will continue to monitor #Chronic malnutrition -Nutrition consulted; appreciate recs #Social concerns -Patient endorses being homeless due to Covid complications -Social work notified letter working on possible placement Disposition Plan: Further medical management; discharge destination pending Total Time Spent with Patient (Minutes): 30 History Interval history: No acute events over night. The patient denies fevers, chills, nausea, vomiting, abdominal pain, chest pain/pressure, shortness of breath, urinary symptoms, weakness, or confusion. Hospitalist Physical - Constitutional Vitals: Temp Pulse Resp BP Pulse Ox 98.5 F 62 20 84/49 100 05/08/21 16:52 05/08/21 16:52 05/08/21 07:25 05/08/21 16:52 05/08/21 07:25 General appearance: Present: no acute distress - EENT Eyes: Present: PERRL, EOM intact ENT: hearing intact, clear oral mucosa, poor dentition - Neck Neck: Present: supple, normal ROM - Respiratory Respiratory effort: normal Respiratory: bilateral: diminished, rales, rhonchi - Cardiovascular Rhythm: regular Heart Sounds: Present: S1 & S2 - Extremities Extremities: no ischemia, pulses intact, pulses symmetrical Extremity abnormal: edema, erythema, tenderness Peripheral Pulses: within normal limits - Abdominal General gastrointestinal: soft, non-tender, non-distended, normal bowel sounds - Integumentary Integumentary: Present: warm, dry, erythema - Psychiatric Psychiatric: appropriate mood/affect, intact judgment & insight, memory intact, cooperative - Neurologic Neurologic: CNII-XII intact, moves all extremities - Allied Health Allied health notes reviewed: nursing HEART Score - HEART Score EKG: Non-specific Age: 45-65 Risk factors: 1-2 risk factors Troponin: Troponin T < 0.010 ng/mL (0.00-0.029) 05/07/21 17:30 Troponin: < normal limit - Critical Actions Critical Actions: 0-3 pts:0.9-1.7%risk of adverse cardiac event.Candidate for discharge Results - Labs CBC & Chem 7: 05/08/21 05:43 05/08/21 05:43 Labs: Laboratory Last Values WBC 5.8 K/mm3 (4.5-11.0) 05/08/21 05:43 RBC 3.91 M/mm3 (3.65-5.03) 05/08/21 05:43 Hgb 8.8 gm/dl (11.8-15.2) L 05/08/21 05:43 Hct 28.2 % (35.5-45.6) L 05/08/21 05:43 MCV 72 fl (84-94) L 05/08/21 05:43 MCH 22 pg (28-32) L 05/08/21 05:43 MCHC 31 % (32-34) L 05/08/21 05:43 RDW 19.7 % (13.2-15.2) H 05/08/21 05:43 Plt Count 323 K/mm3 (140-440) 05/08/21 05:43 Lymph % (Auto) 5.0 % (13.4-35.0) L 05/07/21 17:30 Mcdonough % (Auto) Transplant Rn 05/08/21 05:43 Eos % (Auto) 2.4 % (0.0-4.3) 05/07/21 17:30 Baso % (Auto) 0.6 % (0.0-1.8) 05/07/21 17:30 Lymph # (Auto) 0.3 K/mm3 (1.2-5.4) L 05/07/21 17:30 Mcdonough # (Auto) 1.0 K/mm3 (0.0-0.8) H 05/07/21 17:30 Eos # (Auto) 0.2 K/mm3 (0.0-0.4) 05/07/21 17:30 Baso # (Auto) 0.0 K/mm3 (0.0-0.1) 05/07/21 17:30 Add Manual Diff Complete 05/08/21 05:43 Total Counted 100 05/08/21 05:43 Seg Neutrophils % 76.8 % (40.0-70.0) H 05/07/21 17:30 Seg Neuts % (Manual) 85.0 % (40.0-70.0) H 05/08/21 05:43 Lymphocytes % (Manual) 4.0 % (13.4-35.0) L 05/08/21 05:43 Monocytes % (Manual) 5.0 % (0.0-7.3) 05/08/21 05:43 Eosinophils % (Manual) 6.0 % (0.0-4.3) H 05/08/21 05:43 Nucleated RBC % Not Reportable 05/08/21 05:43 Seg Neutrophils # 4.9 K/mm3 (1.8-7.7) 05/07/21 17:30 Seg Neutrophils # Man 4.9 K/mm3 (1.8-7.7) 05/08/21 05:43 Band Neutrophils # 0.0 K/mm3 05/08/21 05:43 Lymphocytes # (Manual) 0.2 K/mm3 (1.2-5.4) L 05/08/21 05:43 Abs React Lymphs (Man) 0.0 K/mm3 05/08/21 05:43 Monocytes # (Manual) 0.3 K/mm3 (0.0-0.8) 05/08/21 05:43 Eosinophils # (Manual) 0.3 K/mm3 (0.0-0.4) 05/08/21 05:43 Basophils # (Manual) 0.0 K/mm3 (0.0-0.1) 05/08/21 05:43 Metamyelocytes # 0.0 K/mm3 05/08/21 05:43 Myelocytes # 0.0 K/mm3 05/08/21 05:43 Promyelocytes # 0.0 K/mm3 05/08/21 05:43 Blast Cells # 0.0 K/mm3 05/08/21 05:43 WBC Morphology Not Reportable 05/08/21 05:43 Hypersegmented Neuts Not Reportable 05/08/21 05:43 Hyposegmented Neuts Not Reportable 05/08/21 05:43 Hypogranular Neuts Not Reportable 05/08/21 05:43 Smudge Cells Not Reportable 05/08/21 05:43 Toxic Granulation Not Reportable 05/08/21 05:43 Toxic Vacuolation Not Reportable 05/08/21 05:43 Dohle Bodies Not Reportable 05/08/21 05:43 Pelger-Huet Anomaly Not Reportable 05/08/21 05:43 Terrence Rods Not Reportable 05/08/21 05:43 Platelet Estimate Consistent w auto 05/08/21 05:43 Clumped Platelets Not Reportable 05/08/21 05:43 Plt Clumps, EDTA Not Reportable 05/08/21 05:43 Large Platelets Not Reportable 05/08/21 05:43 Giant Platelets Rare 05/08/21 05:43 Platelet Satelliting Not Reportable 05/08/21 05:43 Plt Morphology Comment Not Reportable 05/08/21 05:43 RBC Morphology Not Reportable 05/08/21 05:43 Dimorphic RBCs Not Reportable 05/08/21 05:43 Polychromasia Not Reportable 05/08/21 05:43 Hypochromasia 1+ 05/08/21 05:43 Poikilocytosis 1+ 05/08/21 05:43 Anisocytosis Not Reportable 05/08/21 05:43 Microcytosis Not Reportable 05/08/21 05:43 Macrocytosis Not Reportable 05/08/21 05:43 Spherocytes Not Reportable 05/08/21 05:43 Pappenheimer Bodies Not Reportable 05/08/21 05:43 Sickle Cells Not Reportable 05/08/21 05:43 Target Cells Not Reportable 05/08/21 05:43 Tear Drop Cells Not Reportable 05/08/21 05:43 Ovalocytes Few 05/08/21 05:43 Helmet Cells Not Reportable 05/08/21 05:43 [place] Bodies Not Reportable 05/08/21 05:43 [place] Rings Not Reportable 05/08/21 05:43 Sherley Cells Not Reportable 05/08/21 05:43 Bite Cells Not Reportable 05/08/21 05:43 Crenated Cell Not Reportable 05/08/21 05:43 Elliptocytes Few 05/08/21 05:43 Acanthocytes (Spur) Not Reportable 05/08/21 05:43 Rouleaux Not Reportable 05/08/21 05:43 Hemoglobin C Crystals Not Reportable 05/08/21 05:43 Schistocytes Not Reportable 05/08/21 05:43 Malaria parasites Not Reportable 05/08/21 05:43 Justin Bodies Not Reportable 05/08/21 05:43 Hem Pathologist Commnt No 05/08/21 05:43 Sodium 132 mmol/L (137-145) L 05/08/21 05:43 Potassium 4.0 mmol/L (3.6-5.0) D 05/08/21 05:43 Chloride 95.1 mmol/L (98-107) L 05/08/21 05:43 Carbon Dioxide 30 mmol/L (22-30) 05/08/21 05:43 Anion Gap 11 mmol/L 05/08/21 05:43 BUN 12 mg/dL (9-20) 05/08/21 05:43 Creatinine 0.8 mg/dL (0.8-1.3) 05/08/21 05:43 Estimated GFR > 60 ml/min 05/08/21 05:43 BUN/Creatinine Ratio 15 % 05/08/21 05:43 Glucose 95 mg/dL (75-100) 05/08/21 05:43 Calcium 6.1 mg/dL (8.4-10.2) L 05/08/21 05:43 Magnesium 1.00 mg/dL (1.7-2.3) L 05/07/21 17:30 Iron 22 ug/dL (49-181) L 05/08/21 05:43 TIBC 255 mcg/dL (250-450) 05/08/21 05:43 % Saturation 8.63 % 05/08/21 05:43 Transferrin 230 mg/dl (180-329) 05/08/21 05:43 Total Bilirubin 0.50 mg/dL (0.1-1.2) 05/08/21 05:43 AST 44 units/L (5-40) H 05/08/21 05:43 ALT 40 units/L (7-56) 05/08/21 05:43 Alkaline Phosphatase 248 units/L (35-129) H 05/08/21 05:43 Troponin T < 0.010 ng/mL (0.00-0.029) 05/07/21 17:30 NT-Pro-B Natriuret Pep 2308 pg/mL (0-900) H 05/07/21 17:30 Total Protein 4.4 g/dL (6.3-8.2) L 05/08/21 05:43 Albumin 2.0 g/dL (3.9-5) L 05/08/21 05:43 Albumin/Globulin Ratio 0.8 % 05/08/21 05:43 Vitamin B12 257.7 pg/mL (211-911) 05/08/21 07:17 Active Medications - Current Medications Current Medications: Generic Name Dose Route Start Last Admin Trade Name Freq PRN Reason Stop Dose Admin Acetaminophen 650 mg 05/07/21 20:25 Acetaminophen 325 Mg Tab PO Q4H PRN Pain MILD(1-3)/Fever >100.5/ERAZO Hydrocodone Bitart/Acetaminophen 1 each 05/08/21 12:30 05/08/21 14:40 Hydrocodone/Acetaminophen 5-325 Mg Tab PO 1 each Q8H PRN Administration Pain, Moderate (4-6) Albuterol 2.5 mg 05/07/21 21:00 Albuterol 2.5 Mg/3 Ml Nebu IH QID PRN Shortness Of Breath Apixaban 5 mg 05/07/21 22:00 05/08/21 10:51 Apixaban 5 Mg Tab PO 5 mg BID PRERNA Administration Aspirin 81 mg 05/08/21 10:00 05/08/21 10:51 Aspirin 81 Mg Tab Chew PO 81 mg QDAY PRERNA Administration Atorvastatin Calcium 40 mg 05/07/21 22:00 05/07/21 23:52 Atorvastatin 20 Mg Tab PO 40 mg QHS PRERNA Administration Bumetanide 1 mg 05/08/21 18:00 Bumetanide 1 Mg/4 Ml Inj IV BID@0600,1800 PRERNA Colchicine 0.6 mg 05/08/21 10:00 05/08/21 15:15 Colchicine 0.6 Mg Tab PO Not Given DAILY PRERNA Famotidine 20 mg 05/07/21 22:00 05/08/21 10:51 Famotidine 20 Mg Tab PO 20 mg BID PRERNA Administration Metoprolol Tartrate 25 mg 05/08/21 10:00 05/08/21 10:51 Metoprolol Tartrate 25 Mg Tab PO 25 mg DAILY PRERNA Administration Ondansetron HCl 4 mg 05/07/21 20:25 Ondansetron 4 Mg/2 Ml Inj IV Q8H PRN Nausea And Vomiting Potassium Chloride 20 meq 05/07/21 21:00 05/08/21 15:14 Potassium Chloride Er 20 Meq Tab PO Not Given Q12H PRERNA Sodium Chloride 10 ml 05/07/21 22:00 05/08/21 10:51 Sodium Chloride 0.9% 10 Ml Flush Syringe IV 10 ml BID PRERNA Administration Sodium Chloride 10 ml 05/07/21 20:25 Sodium Chloride 0.9% 10 Ml Flush Syringe IV PRN PRN LINE FLUSH Nutrition/Malnutrition Assess - Dietary Evaluation Nutrition/Malnutrition Findings: Nutrition Notes Start: 05/08/21 12:01 Freq: Status: Active Protocol: Document 05/08/21 12:21 GB (Rec: 05/08/21 12:36 GB [id number]) Nutrition Notes Need for Assessment generated from: MD Order Initial or Follow up Assessment Current Diagnosis COPD,Heart Failure Current Diet Cardiac Labs/Tests 05/08: Na 132 low [id number], Ca 6.1 Low [id number] improving, Fe 22 low, AST 44 elevated [id number] improving, AlkP 248 elevated [id number] improving Pertinent Medications furosemide, KCl, NaCl, MgSulfate/KCl @131ml/hr Height 5 ft 3 in Weight 85.1 kg [place] Body Weight (kg) 56.36 BMI 33.2 Intake Prior to Admission Good Weight change and time frame No reported change in weight in H&P Weight Status Appropriate Subjective/Other Information Per admission, fluid retention r/t chronic heart complications. No reported change in PO intake, weight, strength, mobility, or compromised skin integrity Percent of energy/protein needs met: 75-100% with po intake of meals Burn Absent Trauma Absent GI Symptoms Diarrhea Food Allergy No Skin Integrity/Comment no reported complications Current % PO Good (75-100%) Minimum of two criteria No physical signs of malnutrition Protein-Calorie Malnutrition N\A #1 Nutrition Diagnosis Predicted suboptimal energy intake Comments: related to SOB Etiology related to fluid retention, chronic heart complications As Evidenced by Signs and Symptoms admit recommended from patients' primary for fluid retention/SOB Diagnosis Progress(for reassessment Continues documentation) Is patient on ventilator? No Is Patient Ambulatory and/or Out of Bed Yes REE-(Keith-St. Jeor-ambulatory/OOB) [ [id number]] Kcal/Kg value to use for calculation 20 Approximate Energy Requirements Using 1702 kcal/Kg Calculation Used for Recommendations Kcal/kg Additional Notes Energy needs met by po intake of meals. BMI is in the overweight to obesity I range fluctuating with relation to fluid retention. Nutritional supplement is not recommended. Nutrition Intervention Nutrition Support: Discontinue nutritional supplement beverage ensure BID . Goal #1 PO intake of meals to continue at 50% or greater daily Goal #2 Weight to maintain within overweight BMI range during LOS Anticipated Discharge Needs: Monitoring of high sodium containing foods (preprocessed and packaged) Follow-Up By: 05/15/[address] available for education if patient requests. - Attestation Statement I have reviewed and agreed w/ Malnutrition eval & tx plan: Yes
[2021-05-08] MEDS: BUMETANIDE 1 MG/4 ML INJ IV SCH (18:25)
[2021-05-09 06:23] LABS: Basophils % (Auto) 0.6 % (0.0-1.8); Eosinophils # (Auto) 0.2 K/mm3 (0.0-0.4); Eosinophils % (Auto) 2.7 % (0.0-4.3); Hemoglobin 8.4 gm/dl (11.8-15.2); Lymphocytes # (Auto) 0.3 K/mm3 (1.2-5.4); Lymphocytes % (Auto) 3.8 % (13.4-35.0); Mean Corpuscular HGB Conc 31 % (32-34); Mean Corpuscular Volume 72 fl (84-94); Monocytes % (Auto) 13.3 % (0.0-7.3); Platelet Count 291 K/mm3 (140-440); Red Blood Count 3.73 M/mm3 (3.65-5.03); Red Cell Distribution Width 19.6 % (13.2-15.2)
[2021-05-09 06:42] LABS: BUN/Creatinine Ratio 18; Blood Urea Nitrogen 14 mg/dL (9-20); Calcium 6.7 mg/dL (8.4-10.2); Hemolysis Index 4
[2021-05-09] MEDS: ALBUTEROL 2.5 MG/3 ML NEBU IH PRN ×2 (08:33→17:36)
--- NOTE | 2021-05-09 09:00 | Progress Note ---
<NANCY JAMES - Last Filed: 05/09/21 09:59> Assessment and Plan Cor pulmonale Hx of Tetralogy of Fallot s/p repair Hx of pulmonic valve replacement and tricuspid valve annuloplasty. Hx of VT and persistent atrial fibrillation on Eliquis for anticoagulation Presence of single chamber ICD (Medtronic) Hx of COPD Tobacco abuse 2017 Echo severe dilated right heart chambers but ejection fraction 55-60%. 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 Medical therapy recommended. Subjective Date of service: 05/09/21 Interval history: Patient reports he is not diuresing well with IV Bumex. No distress noted. Objective Vital Signs Temp Pulse Resp BP BP Pulse Ox 05/09/21 08:43 97 05/09/21 05:02 97.5 F L 60 18 75/56 97 05/09/21 03:34 64 05/08/21 22:35 98.2 F 60 18 97/38 100 05/08/21 22:00 96 05/08/21 20:03 98.4 F 61 17 101/33 100 05/08/21 20:00 60 05/08/21 16:52 98.5 F 62 84/49 05/08/21 12:20 60 05/08/21 09:30 99 - Physical Examination General: No Apparent Distress HEENT: Positive: PERRL Neck: Positive: neck supple Cardiac: Positive: Other (paced) Lungs: Positive: Decreased Breath Sounds Neuro: Positive: Grossly Intact Extremities: Present: edema (Trace) - Labs and Meds CBC 05/09/21 Range/Units 05:27 WBC 7.2 (4.5-11.0) K/mm3 RBC 3.73 (3.65-5.03) M/mm3 Hgb 8.4 L (11.8-15.2) gm/dl Hct 27.0 L (35.5-45.6) % Plt Count 291 (140-440) K/mm3 Lymph # (Auto) 0.3 L (1.2-5.4) K/mm3 [place] # (Auto) 1.0 H (0.0-0.8) K/mm3 Eos # (Auto) 0.2 (0.0-0.4) K/mm3 Baso # (Auto) 0.0 (0.0-0.1) K/mm3 Comprehensive Metabolic Panel 05/09/21 Range/Units 05:27 Sodium 133 L (137-145) mmol/L Potassium 5.0 D (3.6-5.0) mmol/L Chloride 97.1 L (98-107) mmol/L Carbon Dioxide 28 (22-30) mmol/L BUN 14 (9-20) mg/dL Creatinine 0.8 (0.8-1.3) mg/dL Glucose 102 H (75-100) mg/dL Calcium 6.7 L (8.4-10.2) mg/dL <ARMANDO LANCE - Last Filed: 05/09/21 14:26> Assessment and Plan - Patient Problems (1) Edema Current Visit: Yes Status: Acute Plan to address problem: Edema is mostly due to right heart failure and venous hypertension, continue diuretic therapy and continue strategies for management of pulmonary hypertension and COPD. (2) Right-sided heart failure Current Visit: Yes Status: Acute Plan to address problem: Echocardiogram today shows evidence of severe cor pulmonale, with dilated right heart chambers and moderate severity pulmonary hypertension. The left ventricle is only mildly dilated with ejection fraction 40 to 45%. Cardiac status is stable, continue current medical therapy. (3) Chronic atrial fibrillation Current Visit: Yes Status: Acute Plan to address problem: Rate control strategy of atrial fibrillation with chronic anticoagulation therapy currently on Eliquis. Subjective Interval history: Patient looks and feels better today after bronchodilator treatments, he is awaiting pulmonary set up of his home oxygen. There are no cardiac complaints. Echocardiogram today shows evidence of severe cor pulmonale, with dilated right heart chambers and moderate severity pulmonary hypertension. The left ventricle is only mildly dilated with ejection fraction 40 to 45%. Objective Vital Signs Temp Pulse Resp BP BP Pulse Ox 05/09/21 12:00 60 05/09/21 10:00 96 05/09/21 08:43 97 05/09/21 07:55 98.3 F 63 18 124/50 100 05/09/21 05:02 97.5 F L 60 18 75/56 97 05/09/21 03:34 64 05/08/21 22:35 98.2 F 60 18 97/38 100 05/08/21 22:00 96 05/08/21 20:03 98.4 F 61 17 101/33 100 05/08/21 20:00 60 05/08/21 16:52 98.5 F 62 84/49 - Labs and Meds CBC 05/09/21 Range/Units 05:27 WBC 7.2 (4.5-11.0) K/mm3 RBC 3.73 (3.65-5.03) M/mm3 Hgb 8.4 L (11.8-15.2) gm/dl Hct 27.0 L (35.5-45.6) % Plt Count 291 (140-440) K/mm3 Lymph # (Auto) 0.3 L (1.2-5.4) K/mm3 [place] # (Auto) 1.0 H (0.0-0.8) K/mm3 Eos # (Auto) 0.2 (0.0-0.4) K/mm3 Baso # (Auto) 0.0 (0.0-0.1) K/mm3 Comprehensive Metabolic Panel 05/09/21 Range/Units 05:27 Sodium 133 L (137-145) mmol/L Potassium 5.0 D (3.6-5.0) mmol/L Chloride 97.1 L (98-107) mmol/L Carbon Dioxide 28 (22-30) mmol/L BUN 14 (9-20) mg/dL Creatinine 0.8 (0.8-1.3) mg/dL Glucose 102 H (75-100) mg/dL Calcium 6.7 L (8.4-10.2) mg/dL
[2021-05-09] MEDS: ASPIRIN 81 MG TAB CHEW PO SCH (09:57)
[2021-05-09] MEDS: COLCHICINE 0.6 MG TAB PO SCH (09:57)
[2021-05-09] MEDS: POTASSIUM CHLORIDE ER 20 MEQ TAB PO SCH (09:57)
[2021-05-09] MEDS: APIXABAN 5 MG TAB PO SCH ×2 (09:57→22:20)
[2021-05-09] MEDS: FAMOTIDINE 20 MG TAB PO SCH ×2 (09:57→22:19)
--- NOTE | 2021-05-09 13:15 | Progress Note ---
Assessment and Plan Assessment and plan: #Acute on systolic chronic HF exacerbation #Pulmonary hypertension - Continue CHF exacerbation protocol: Strict I/O, monitor urine output every shift, daily weights, afterload reduction, low-sodium diet, and fluid restriction of approximately 1.5 mL/day - Supplemental oxygen: 2 L - Cardiology consulted; appreciate recs. Reaching out to team to see if patient's device can be interrogated (Pantechtronic) - TTE (05/08/2021) pending - Holding antihypertensives due to concern for low blood pressures - Discontinued IV bumex due to lack of diuresis (per patient) and starting torsemide 100mg daily (patient endorses this being the best diuretic for him); blood pressure allowed diuresis #Acute hypoxic respiratory failure #COPD -Currently on 2 L nasal cannula (baseline of 2 L at home) -Patient endorses no longer having home oxygen due to social issues with brother -Order placed for home oxygen upon discharge; ready upon discharge -No concern for COPD exacerbation given lack of fever, increased sputum, or sign of possible infection -Continue nebulizer treatment #Anemia -Hemoglobin 8.8; pending work-up #Hypomagnesemia -Repleted and will continue to monitor #Hypokalemia -Repleted and will continue to monitor #Chronic malnutrition -Nutrition consulted; appreciate recs #Anxiety - restarted home Xanax (home dose 5mg BID) at 2mg BID - will continue to monitor #Social concerns -Patient endorses being homeless due to Covid complications -Social work notified letter working on possible placement Disposition Plan: Continue medical management Total Time Spent with Patient (Minutes): 30 History Interval history: No acute events over night. The patient denies fevers, chills, nausea, vomiting, abdominal pain, chest pain/pressure, shortness of breath, urinary symptoms, weakness, or confusion. Hospitalist Physical - Constitutional Vitals: Temp Pulse Resp BP Pulse Ox 98.3 F 60 18 124/50 96 05/09/21 07:55 05/09/21 12:00 05/09/21 07:55 05/09/21 07:55 05/09/21 10:00 General appearance: Present: no acute distress - EENT Eyes: Present: PERRL, EOM intact ENT: hearing intact, clear oral mucosa, dentition normal - Neck Neck: Present: supple, normal ROM - Respiratory Respiratory effort: normal Respiratory: bilateral: rales (lower bases), negative: CTA, diminished, rhonchi, wheezing, other - Cardiovascular Rhythm: regular Heart Sounds: Present: S1 & S2 - Extremities Extremities: no ischemia, pulses intact, pulses symmetrical Extremity abnormal: edema (Bilateral lower leg edema to lower thigh) Peripheral Pulses: within normal limits - Abdominal General gastrointestinal: soft, non-tender, non-distended, normal bowel sounds - Integumentary Integumentary: Present: clear, warm, dry - Psychiatric Psychiatric: appropriate mood/affect, intact judgment & insight, memory intact, cooperative - Neurologic Neurologic: CNII-XII intact, moves all extremities - Allied Health Allied health notes reviewed: nursing HEART Score - HEART Score History: Moderately suspicious EKG: Non-specific Age: 45-65 Risk factors: 1-2 risk factors Troponin: Troponin T < 0.010 ng/mL (0.00-0.029) 05/07/21 17:30 Troponin: < normal limit HEART Score: 4 - Critical Actions Critical Actions: 4-6 pts:12-16.6% risk of adverse cardiac event. Should be admitted Results - Labs CBC & Chem 7: 05/09/21 05:27 05/09/21 05:27 Labs: Laboratory Last Values WBC 7.2 K/mm3 (4.5-11.0) 05/09/21 05:27 RBC 3.73 M/mm3 (3.65-5.03) 05/09/21 05:27 Hgb 8.4 gm/dl (11.8-15.2) L 05/09/21 05:27 Hct 27.0 % (35.5-45.6) L 05/09/21 05:27 MCV 72 fl (84-94) L 05/09/21 05:27 MCH 23 pg (28-32) L 05/09/21 05:27 MCHC 31 % (32-34) L 05/09/21 05:27 RDW 19.6 % (13.2-15.2) H 05/09/21 05:27 Plt Count 291 K/mm3 (140-440) 05/09/21 05:27 Lymph % (Auto) 3.8 % (13.4-35.0) L 05/09/21 05:27 [facility] % (Auto) 13.3 % (0.0-7.3) H 05/09/21 05:27 Eos % (Auto) 2.7 % (0.0-4.3) 05/09/21 05:27 Baso % (Auto) 0.6 % (0.0-1.8) 05/09/21 05:27 Lymph # (Auto) 0.3 K/mm3 (1.2-5.4) L 05/09/21 05:27 [facility] # (Auto) 1.0 K/mm3 (0.0-0.8) H 05/09/21 05:27 Eos # (Auto) 0.2 K/mm3 (0.0-0.4) 05/09/21 05:27 Baso # (Auto) 0.0 K/mm3 (0.0-0.1) 05/09/21 05:27 Add Manual Diff Complete 05/08/21 05:43 Total Counted 100 05/08/21 05:43 Seg Neutrophils % 79.6 % (40.0-70.0) H 05/09/21 05:27 Seg Neuts % (Manual) 85.0 % (40.0-70.0) H 05/08/21 05:43 Lymphocytes % (Manual) 4.0 % (13.4-35.0) L 05/08/21 05:43 Monocytes % (Manual) 5.0 % (0.0-7.3) 05/08/21 05:43 Eosinophils % (Manual) 6.0 % (0.0-4.3) H 05/08/21 05:43 Nucleated RBC % Not Reportable 05/08/21 05:43 Seg Neutrophils # 5.7 K/mm3 (1.8-7.7) 05/09/21 05:27 Seg Neutrophils # Man 4.9 K/mm3 (1.8-7.7) 05/08/21 05:43 Band Neutrophils # 0.0 K/mm3 05/08/21 05:43 Lymphocytes # (Manual) 0.2 K/mm3 (1.2-5.4) L 05/08/21 05:43 Abs React Lymphs (Man) 0.0 K/mm3 05/08/21 05:43 Monocytes # (Manual) 0.3 K/mm3 (0.0-0.8) 05/08/21 05:43 Eosinophils # (Manual) 0.3 K/mm3 (0.0-0.4) 05/08/21 05:43 Basophils # (Manual) 0.0 K/mm3 (0.0-0.1) 05/08/21 05:43 Metamyelocytes # 0.0 K/mm3 05/08/21 05:43 Myelocytes # 0.0 K/mm3 05/08/21 05:43 Promyelocytes # 0.0 K/mm3 05/08/21 05:43 Blast Cells # 0.0 K/mm3 05/08/21 05:43 WBC Morphology Not Reportable 05/08/21 05:43 Hypersegmented Neuts Not Reportable 05/08/21 05:43 Hyposegmented Neuts Not Reportable 05/08/21 05:43 Hypogranular Neuts Not Reportable 05/08/21 05:43 Smudge Cells Not Reportable 05/08/21 05:43 Toxic Granulation Not Reportable 05/08/21 05:43 Toxic Vacuolation Not Reportable 05/08/21 05:43 Dohle Bodies Not Reportable 05/08/21 05:43 Pelger-Huet Anomaly Not Reportable 05/08/21 05:43 Terrence Rods Not Reportable 05/08/21 05:43 Platelet Estimate Consistent w auto 05/08/21 05:43 Clumped Platelets Not Reportable 05/08/21 05:43 Plt Clumps, EDTA Not Reportable 05/08/21 05:43 Large Platelets Not Reportable 05/08/21 05:43 Giant Platelets Rare 05/08/21 05:43 Platelet Satelliting Not Reportable 05/08/21 05:43 Plt Morphology Comment Not Reportable 05/08/21 05:43 RBC Morphology Not Reportable 05/08/21 05:43 Dimorphic RBCs Not Reportable 05/08/21 05:43 Polychromasia Not Reportable 05/08/21 05:43 Hypochromasia 1+ 05/08/21 05:43 Poikilocytosis 1+ 05/08/21 05:43 Anisocytosis Not Reportable 05/08/21 05:43 Microcytosis Not Reportable 05/08/21 05:43 Macrocytosis Not Reportable 05/08/21 05:43 Spherocytes Not Reportable 05/08/21 05:43 Pappenheimer Bodies Not Reportable 05/08/21 05:43 Sickle Cells Not Reportable 05/08/21 05:43 Target Cells Not Reportable 05/08/21 05:43 Tear Drop Cells Not Reportable 05/08/21 05:43 Ovalocytes Few 05/08/21 05:43 Helmet Cells Not Reportable 05/08/21 05:43 [place] Bodies Not Reportable 05/08/21 05:43 [place] Rings Not Reportable 05/08/21 05:43 [place] Cells Not Reportable 05/08/21 05:43 Bite Cells Not Reportable 05/08/21 05:43 Crenated Cell Not Reportable 05/08/21 05:43 Elliptocytes Few 05/08/21 05:43 Acanthocytes (Spur) Not Reportable 05/08/21 05:43 Rouleaux Not Reportable 05/08/21 05:43 Hemoglobin C Crystals Not Reportable 05/08/21 05:43 Schistocytes Not Reportable 05/08/21 05:43 Malaria parasites Not Reportable 05/08/21 05:43 Justin Bodies Not Reportable 05/08/21 05:43 Hem Pathologist Commnt No 05/08/21 05:43 Sodium 133 mmol/L (137-145) L 05/09/21 05:27 Potassium 5.0 mmol/L (3.6-5.0) D 05/09/21 05:27 Chloride 97.1 mmol/L (98-107) L 05/09/21 05:27 Carbon Dioxide 28 mmol/L (22-30) 05/09/21 05:27 Anion Gap 13 mmol/L 05/09/21 05:27 BUN 14 mg/dL (9-20) 05/09/21 05:27 Creatinine 0.8 mg/dL (0.8-1.3) 05/09/21 05:27 Estimated GFR > 60 ml/min 05/09/21 05:27 BUN/Creatinine Ratio 18 % 05/09/21 05:27 Glucose 102 mg/dL (75-100) H 05/09/21 05:27 Calcium 6.7 mg/dL (8.4-10.2) L 05/09/21 05:27 Phosphorus 3.70 mg/dL (2.5-4.5) 05/09/21 05:27 Magnesium 1.40 mg/dL (1.7-2.3) L 05/09/21 05:27 Iron 22 ug/dL (49-181) L 05/08/21 05:43 TIBC 255 mcg/dL (250-450) 05/08/21 05:43 % Saturation 8.63 % 05/08/21 05:43 Transferrin 230 mg/dl (180-329) 05/08/21 05:43 Total Bilirubin 0.50 mg/dL (0.1-1.2) 05/08/21 05:43 AST 44 units/L (5-40) H 05/08/21 05:43 ALT 40 units/L (7-56) 05/08/21 05:43 Alkaline Phosphatase 248 units/L (35-129) H 05/08/21 05:43 Troponin T < 0.010 ng/mL (0.00-0.029) 05/07/21 17:30 NT-Pro-B Natriuret Pep 2308 pg/mL (0-900) H 05/07/21 17:30 Total Protein 4.4 g/dL (6.3-8.2) L 05/08/21 05:43 Albumin 2.0 g/dL (3.9-5) L 05/08/21 05:43 Albumin/Globulin Ratio 0.8 % 05/08/21 05:43 Vitamin B12 257.7 pg/mL (211-911) 05/08/21 07:17 [place]/IV: Voiding Method Toilet Active Medications - Current Medications Current Medications: Generic Name Dose Route Start Last Admin Trade Name Freq PRN Reason Stop Dose Admin Acetaminophen 650 mg 05/07/21 20:25 Acetaminophen 325 Mg Tab PO Q4H PRN Pain MILD(1-3)/Fever >100.5/ERAZO Hydrocodone Bitart/Acetaminophen 1 each 05/08/21 12:30 05/08/21 14:40 Hydrocodone/Acetaminophen 5-325 Mg Tab PO 1 each Q8H PRN Administration Pain, Moderate (4-6) Albuterol 2.5 mg 05/07/21 21:00 05/09/21 08:33 Albuterol 2.5 Mg/3 Ml Nebu IH 2.5 mg QID PRN Administration Shortness Of Breath Alprazolam 2 mg 05/09/21 22:00 Alprazolam 1 Mg Tab PO BID PRERNA Apixaban 5 mg 05/07/21 22:00 05/09/21 09:57 Apixaban 5 Mg Tab PO 5 mg BID PRERNA Administration Aspirin 81 mg 05/08/21 10:00 05/09/21 09:57 Aspirin 81 Mg Tab Chew PO 81 mg QDAY PRERNA Administration Atorvastatin Calcium 40 mg 05/07/21 22:00 05/08/21 21:38 Atorvastatin 20 Mg Tab PO 40 mg QHS PRERNA Administration Colchicine 0.6 mg 05/08/21 10:00 05/09/21 09:57 Colchicine 0.6 Mg Tab PO 0.6 mg DAILY PRERNA Administration Famotidine 20 mg 05/07/21 22:00 05/09/21 09:57 Famotidine 20 Mg Tab PO 20 mg BID PRERNA Administration Ondansetron HCl 4 mg 05/07/21 20:25 Ondansetron 4 Mg/2 Ml Inj IV Q8H PRN Nausea And Vomiting Sodium Chloride 10 ml 05/07/21 22:00 05/08/21 21:38 Sodium Chloride 0.9% 10 Ml Flush Syringe IV 10 ml BID PRERNA Administration Sodium Chloride 10 ml 05/07/21 20:25 Sodium Chloride 0.9% 10 Ml Flush Syringe IV PRN PRN LINE FLUSH Torsemide 100 mg 05/10/21 06:00 Torsemide 100 Mg Tab PO DAILY@0600 [facility] Nutrition/Malnutrition Assess - Dietary Evaluation Nutrition/Malnutrition Findings: Nutrition Notes Start: 05/08/21 12:01 Freq: Status: Active Protocol: Document 05/08/21 12:21 GB (Rec: 05/08/21 12:36 GB [id number]) Nutrition Notes Need for Assessment generated from: MD Order Initial or Follow up Assessment Current Diagnosis COPD,Heart Failure Current Diet Cardiac Labs/Tests 05/08: Na 132 low [id number], Ca 6.1 Low [id number] improving, Fe 22 low, AST 44 elevated [id number] improving, AlkP 248 elevated [id number] improving Pertinent Medications furosemide, KCl, NaCl, MgSulfate/KCl @131ml/hr Height 5 ft 3 in Weight 85.1 kg [place] Body Weight (kg) 56.36 BMI 33.2 Intake Prior to Admission Good Weight change and time frame No reported change in weight in H&P Weight Status Appropriate Subjective/Other Information Per admission, fluid retention r/t chronic heart complications. No reported change in PO intake, weight, strength, mobility, or compromised skin integrity Percent of energy/protein needs met: 75-100% with po intake of meals Burn Absent Trauma Absent GI Symptoms Diarrhea Food Allergy No Skin Integrity/Comment no reported complications Current % PO Good (75-100%) Minimum of two criteria No physical signs of malnutrition Protein-Calorie Malnutrition N\A #1 Nutrition Diagnosis Predicted suboptimal energy intake Comments: related to SOB Etiology related to fluid retention, chronic heart complications As Evidenced by Signs and Symptoms admit recommended from patients' primary for fluid retention/SOB Diagnosis Progress(for reassessment Continues documentation) Is patient on ventilator? No Is Patient Ambulatory and/or Out of Bed Yes REE-([place]. Jeor-ambulatory/OOB) [ 2034.96 [id number]] Kcal/Kg value to use for calculation 20 Approximate Energy Requirements Using 1702 kcal/Kg Calculation Used for Recommendations Kcal/kg Additional Notes Energy needs met by po intake of meals. BMI is in the overweight to obesity I range fluctuating with relation to fluid retention. Nutritional supplement is not recommended. Nutrition Intervention Nutrition Support: Discontinue nutritional supplement beverage ensure BID . Goal #1 PO intake of meals to continue at 50% or greater daily Goal #2 Weight to maintain within overweight BMI range during LOS Anticipated Discharge Needs: Monitoring of high sodium containing foods (preprocessed and packaged) Follow-Up By: 05/15/[address] available for education if patient requests. - Attestation Statement I have reviewed and agreed w/ Malnutrition eval & tx plan: Yes
[2021-05-09] MEDS: ALPRAZolam 1 MG TAB PO SCH (22:19)
[2021-05-10] MEDS: TORSEMIDE 100 MG TAB PO SCH ×2 (05:24→10:18)
[2021-05-10] MEDS: BUMETANIDE 1 MG/4 ML INJ IV SCH (05:25)
[2021-05-10 06:29] LABS: Basophils # (Auto) 0.1 K/mm3 (0.0-0.1); Basophils % (Auto) 1.3 % (0.0-1.8); Eosinophils # (Auto) 0.2 K/mm3 (0.0-0.4); Eosinophils % (Auto) 4.2 % (0.0-4.3); Hematocrit 26.7 % (35.5-45.6); Hemoglobin 8.7 gm/dl (11.8-15.2); Lymphocytes # (Auto) 0.3 K/mm3 (1.2-5.4); Lymphocytes % (Auto) 5.3 % (13.4-35.0); Mean Corpuscular HGB Conc 32 % (32-34); Mean Corpuscular Volume 72 fl (84-94); Monocytes # (Auto) 0.7 K/mm3 (0.0-0.8); Monocytes % (Auto) 12.7 % (0.0-7.3); Platelet Count 341 K/mm3 (140-440); Red Blood Count 3.72 M/mm3 (3.65-5.03)
[2021-05-10 06:36] LABS: Red Cell Distribution Width 20.4 % (13.2-15.2)
[2021-05-10 06:47] LABS: BUN/Creatinine Ratio 20; Blood Urea Nitrogen 14 mg/dL (9-20); Calcium 7.1 mg/dL (8.4-10.2); Hemolysis Index 6
[2021-05-10] MEDS ORDERED: CALCIUM GLUCONATE 2,000 MG in SODIUM CHLORIDE 0.9% 100 ML IV ONE (08:30)
[2021-05-10] MEDS ORDERED: MAGNESIUM SULFATE 1 GM in SODIUM CHLORIDE 0.9% 50 ML IV ONE (08:30)
[2021-05-10] MEDS: APIXABAN 5 MG TAB PO SCH ×2 (10:18→21:32)
[2021-05-10] MEDS: ASPIRIN 81 MG TAB CHEW PO SCH (10:18)
[2021-05-10] MEDS: COLCHICINE 0.6 MG TAB PO SCH (10:18)
[2021-05-10] MEDS: ALPRAZolam 1 MG TAB PO SCH ×2 (10:18→21:32)
[2021-05-10] MEDS: FAMOTIDINE 20 MG TAB PO SCH ×2 (10:18→21:33)
--- NOTE | 2021-05-10 11:28 | Progress Note ---
Assessment and Plan - Patient Problems (1) Edema Current Visit: Yes Status: Acute Plan to address problem: Persistent or increasing edema is likely due to right-sided heart failure and cor pulmonale. In addition to diuretics, we will start dobutamine 5 mics per k ilogram per minute to improve inotropy and enhance diuresis. (2) Right-sided heart failure Current Visit: Yes Status: Acute Plan to address problem: Echocardiogram shows evidence of severe cor pulmonale, with dilated right heart chambers and moderate severity pulmonary hypertension. The left ventricle is only mildly dilated with ejection fraction 40 to 45%. (3) Chronic atrial fibrillation Current Visit: Yes Status: Acute Plan to address problem: Rate control strategy of atrial fibrillation with chronic anticoagulation therapy currently on Eliquis. Subjective Date of service: 05/10/21 Interval history: Patient has increasing edema bilateral lower extremities, no chest pain, and his shortness of breath and wheezing have improved on bronchodilator treatments. Objective Vital Signs Temp Pulse Resp BP Pulse Ox 05/10/21 08:10 97.9 F 60 20 103/40 100 05/10/21 05:21 97.8 F 60 18 87/32 91 05/10/21 00:57 97 05/09/21 23:52 97.8 F 62 18 98/39 98 05/09/21 20:17 96 05/09/21 20:11 60 05/09/21 19:14 98.1 F 73 18 91/36 97 05/09/21 16:17 18 102/41 05/09/21 12:00 60 - Physical Examination General: No Apparent Distress HEENT: Positive: PERRL Neck: Positive: neck supple Cardiac: Positive: irregularly irregular Lungs: Positive: Decreased Breath Sounds Neuro: Positive: Grossly Intact Abdomen: Positive: Soft Skin: Positive: Clear Extremities: Present: +2 Edema - Labs and Meds CBC 05/10/21 Range/Units 05:47 WBC 5.8 (4.5-11.0) K/mm3 RBC 3.72 (3.65-5.03) M/mm3 Hgb 8.7 L (11.8-15.2) gm/dl Hct 26.7 L (35.5-45.6) % Plt Count 341 (140-440) K/mm3 Lymph # (Auto) 0.3 L (1.2-5.4) K/mm3 [place] # (Auto) 0.7 (0.0-0.8) K/mm3 Eos # (Auto) 0.2 (0.0-0.4) K/mm3 Baso # (Auto) 0.1 (0.0-0.1) K/mm3 Comprehensive Metabolic Panel 05/10/21 Range/Units 05:47 Sodium 129 L (137-145) mmol/L Potassium 5.0 (3.6-5.0) mmol/L Chloride 96.4 L (98-107) mmol/L Carbon Dioxide 24 (22-30) mmol/L BUN 14 (9-20) mg/dL Creatinine 0.7 L (0.8-1.3) mg/dL Glucose 89 (75-100) mg/dL Calcium 7.1 L (8.4-10.2) mg/dL
--- NOTE | 2021-05-10 12:49 | Consultation ---
History of Present Illness Consult date: 05/10/21 Requesting physician: ARMANDO LANCE Reason for consult: COPD History of present illness: PULMONARY/CCM CONSULT NOTE (Full dictation # [id number]) Please see dictated notes for full details Past History Past Medical History: atrial fib, heart failure (Right-sided heart failure), other (Congenital heart disease, Tetralogy of Fallot) Medications and Allergies Allergies Allergy/AdvReac Type Severity Reaction Status Date / Time acetaminophen [From Percocet] AdvReac Nausea Verified 05/07/21 18:34 hydrocodone AdvReac Nausea Verified 05/07/21 18:34 tramadol AdvReac Nausea Verified 05/07/21 18:34 Home Medications Medication Instructions Recorded Confirmed Last Taken Type Aspirin [Aspirin BABY CHEW TAB] 81 mg PO QDAY 01/20/14 05/07/21 03/15/18 History Potassium Chloride [Klor-Con 8] 20 meq PO QDAY 01/20/14 05/07/21 03/15/18 History Atorvastatin Calcium [Lipitor] 40 mg PO QHS 01/06/17 05/07/21 03/15/18 History Apixaban [Eliquis] 5 mg PO BID 03/16/18 05/07/21 03/15/18 History Colchicine [Mitigare] 0.6 mg PO DAILY 03/16/18 05/07/21 03/15/18 History Metoprolol [Lopressor TAB] 25 mg PO DAILY 03/16/18 05/07/21 03/15/18 History Torsemide [Demadex] 100 mg PO QDAY 03/18/18 05/07/21 03/15/18 History Albuterol Mdi (or & Nicu Only) 2 puff IH QID PRN #1 inha 05/06/18 05/07/21 Unknown Rx [ProAir HFA Inhaler] Active Meds: Active Medications Acetaminophen (Acetaminophen 325 Mg Tab) 650 mg PO Q4H PRN PRN Reason: Pain MILD(1-3)/Fever >100.5/ERAZO Hydrocodone Bitart/Acetaminophen (Hydrocodone/Acetaminophen 5-325 Mg Tab) 1 each PO Q8H PRN PRN Reason: Pain, Moderate (4-6) Last Admin: 05/08/21 14:40 Dose: 1 each Documented by: Albuterol (Albuterol 2.5 Mg/3 Ml Nebu) 2.5 mg IH QID PRN PRN Reason: Shortness Of Breath Last Admin: 05/09/21 17:36 Dose: 2.5 mg Documented by: Alprazolam (Alprazolam 1 Mg Tab) 2 mg PO BID [facility] Last Admin: 05/10/21 10:18 Dose: 2 mg Documented by: Apixaban (Apixaban 5 Mg Tab) 5 mg PO BID [facility] Last Admin: 05/10/21 10:18 Dose: 5 mg Documented by: Aspirin (Aspirin 81 Mg Tab Chew) 81 mg PO QDAY [facility] Last Admin: 05/10/21 10:18 Dose: 81 mg Documented by: Atorvastatin Calcium (Atorvastatin 20 Mg Tab) 40 mg PO QHS [facility] Last Admin: 05/09/21 22:19 Dose: 40 mg Documented by: Colchicine (Colchicine 0.6 Mg Tab) 0.6 mg PO DAILY [facility] Last Admin: 05/10/21 10:18 Dose: 0.6 mg Documented by: Famotidine (Famotidine 20 Mg Tab) 20 mg PO BID [facility] Last Admin: 05/10/21 10:18 Dose: 20 mg Documented by: Dobutamine HCl/Dextrose (Dobutrex Drip 500mg/D5w 250ml) 500 mg in 250 mls @ 12.09 mls/hr IV DIRECT [facility]; Protocol Stop: 05/13/21 11:59 Ondansetron HCl (Ondansetron 4 Mg/2 Ml Inj) 4 mg IV Q8H PRN PRN Reason: Nausea And Vomiting Last Admin: 05/10/21 09:18 Dose: 4 mg Documented by: Sodium Chloride (Sodium Chloride 0.9% 10 Ml Flush Syringe) 10 ml IV BID [facility] Last Admin: 05/10/21 10:18 Dose: 10 ml Documented by: Sodium Chloride (Sodium Chloride 0.9% 10 Ml Flush Syringe) 10 ml IV PRN PRN PRN Reason: LINE FLUSH Torsemide (Torsemide 100 Mg Tab) 100 mg PO DAILY@0600 [facility] Last Admin: 05/10/21 10:18 Dose: 100 mg Documented by: Physical Examination Vital signs: Vital Signs Temp Pulse Resp BP Pulse Ox 97.9 F 89 16 100/50 100 05/07/21 17:33 05/07/21 17:33 05/07/21 17:33 05/07/21 17:33 05/07/21 17:33 Results - Laboratory Findings CBC and BMP: 05/10/21 05:47 05/10/21 05:47 Abnormal lab findings: Abnormal Labs 05/07/21 05/07/21 05/07/21 17:30 17:30 17:30 Hgb 9.2 L Hct 28.4 L MCV 72 L MCH 23 L MCHC RDW 19.6 H Lymph % (Auto) 5.0 L [place] % (Auto) 15.2 H Lymph # (Auto) 0.3 L [place] # (Auto) 1.0 H Seg Neutrophils % 76.8 H Seg Neuts % (Manual) Lymphocytes % (Manual) Eosinophils % (Manual) Lymphocytes # (Manual) Sodium 134 L Potassium 2.7 L* Chloride 92.3 L Creatinine Glucose Calcium 6.0 L Magnesium 1.00 L Iron AST 47 H Alkaline Phosphatase 276 H NT-Pro-B Natriuret Pep 2308 H Total Protein 4.4 L Albumin 2.2 L 05/08/21 05/08/21 05/08/21 05:43 05:43 05:43 Hgb 8.8 L Hct 28.2 L MCV 72 L MCH 22 L MCHC 31 L RDW 19.7 H Lymph % (Auto) [place] % (Auto) Lymph # (Auto) [place] # (Auto) Seg Neutrophils % Seg Neuts % (Manual) 85.0 H Lymphocytes % (Manual) 4.0 L Eosinophils % (Manual) 6.0 H Lymphocytes # (Manual) 0.2 L Sodium 132 L Potassium Chloride 95.1 L Creatinine Glucose Calcium 6.1 L Magnesium Iron 22 L AST 44 H Alkaline Phosphatase 248 H NT-Pro-B Natriuret Pep Total Protein 4.4 L Albumin 2.0 L 05/09/21 05/09/21 05/10/21 05:27 05:27 05:47 Hgb 8.4 L 8.7 L Hct 27.0 L 26.7 L MCV 72 L 72 L MCH 23 L 23 L MCHC 31 L RDW 19.6 H 20.4 H Lymph % (Auto) 3.8 L 5.3 L [place] % (Auto) 13.3 H 12.7 H Lymph # (Auto) 0.3 L 0.3 L [place] # (Auto) 1.0 H Seg Neutrophils % 79.6 H 76.5 H Seg Neuts % (Manual) Lymphocytes % (Manual) Eosinophils % (Manual) Lymphocytes # (Manual) Sodium 133 L Potassium Chloride 97.1 L Creatinine Glucose 102 H Calcium 6.7 L Magnesium 1.40 L Iron AST Alkaline Phosphatase NT-Pro-B Natriuret Pep Total Protein Albumin 05/10/21 05:47 Hgb Hct MCV MCH MCHC RDW Lymph % (Auto) [place] % (Auto) Lymph # (Auto) [place] # (Auto) Seg Neutrophils % Seg Neuts % (Manual) Lymphocytes % (Manual) Eosinophils % (Manual) Lymphocytes # (Manual) Sodium 129 L Potassium Chloride 96.4 L Creatinine 0.7 L Glucose Calcium 7.1 L Magnesium 1.50 L Iron AST Alkaline Phosphatase NT-Pro-B Natriuret Pep Total Protein Albumin
[2021-05-10] MEDS: DOBUTamine/D5W 500 MG/250 ML 500 MG/250 ML BAG IV SCH (12:55)
--- NOTE | 2021-05-10 14:20 | Progress Note ---
Assessment and Plan Assessment and plan: #Acute on systolic right heart failure #Pulmonary hypertension - Continue CHF exacerbation protocol: Strict I/O, monitor urine output every shift, daily weights, afterload reduction, low-sodium diet, and fluid restriction of approximately 1.5 mL/day - Supplemental oxygen: 2 L - Cardiology consulted; appreciate recs. Cardiology is starting dobutamine 5 mg/KG in the setting of right heart failure - TTE (05/08/2021) pending - Holding antihypertensives due to concern for low blood pressures - Discontinued IV bumex due to lack of diuresis (per patient) and starting torsemide 100mg daily (patient endorses this being the best diuretic for him); blood pressure allowed diuresis -Pulmonology consulted; pending recs #Acute hypoxic respiratory failure-resolved #COPD -Currently on 2 L nasal cannula (baseline of 2 L at home) -Patient endorses no longer having home oxygen due to social issues with brother -Order placed for home oxygen upon discharge; ready upon discharge -No concern for COPD exacerbation given lack of fever, increased sputum, or sign of possible infection -Continue nebulizer treatment #Atrial fibrillation -Continue with Eliquis #Anemia -Hemoglobin 8.8; pending work-up #Hypomagnesemia -Repleted and will continue to monitor #Hypokalemia -Repleted and will continue to monitor #Chronic malnutrition -Nutrition consulted; appreciate recs #Anxiety -Continue home Xanax (home dose 5mg BID) at 2mg BID - will continue to monitor #Social concerns -Patient endorses being homeless due to Covid complications -Social work notified letter working on possible placement Disposition Plan: Continue medical management History Interval history: No acute events over night. The patient denies fevers, chills, nausea, vomiting, abdominal pain, chest pain/pressure, shortness of breath, urinary symptoms, weakness, or confusion. Hospitalist Physical - Constitutional Vitals: Temp Pulse Resp BP Pulse Ox 98.3 F 71 19 106/40 99 05/10/21 11:15 05/10/21 11:15 05/10/21 11:15 05/10/21 11:15 05/10/21 11:15 General appearance: Present: no acute distress, mild distress - EENT Eyes: Present: PERRL, EOM intact ENT: hearing intact, clear oral mucosa, dentition normal - Neck Neck: Present: supple, normal ROM - Respiratory Respiratory effort: normal Respiratory: bilateral: diminished, rhonchi, negative: CTA, rales, wheezing, other - Cardiovascular Rhythm: irregularly irregular Heart Sounds: Present: S1 & S2 - Extremities Extremities: no ischemia, pulses intact, pulses symmetrical, normal temperature Extremity abnormal: edema (1-2+ pitting edema to bilateral lower thighs) Peripheral Pulses: within normal limits - Abdominal General gastrointestinal: soft, non-tender, non-distended, normal bowel sounds - Integumentary Integumentary: Present: clear, warm, dry - Psychiatric Psychiatric: appropriate mood/affect, intact judgment & insight, memory intact, cooperative - Neurologic Neurologic: CNII-XII intact, moves all extremities - Allied Health Allied health notes reviewed: nursing HEART Score - HEART Score History: Highly suspicious EKG: Non-specific Age: 45-65 Risk factors: 1-2 risk factors Troponin: Troponin T < 0.010 ng/mL (0.00-0.029) 05/07/21 17:30 Troponin: < normal limit HEART Score: 5 - Critical Actions Critical Actions: 4-6 pts:12-16.6% risk of adverse cardiac event. Should be a dmitted Results - Labs CBC & Chem 7: 05/10/21 05:47 05/10/21 05:47 Labs: Laboratory Last Values WBC 5.8 K/mm3 (4.5-11.0) 05/10/21 05:47 RBC 3.72 M/mm3 (3.65-5.03) 05/10/21 05:47 Hgb 8.7 gm/dl (11.8-15.2) L 05/10/21 05:47 Hct 26.7 % (35.5-45.6) L 05/10/21 05:47 MCV 72 fl (84-94) L 05/10/21 05:47 MCH 23 pg (28-32) L 05/10/21 05:47 MCHC 32 % (32-34) 05/10/21 05:47 RDW 20.4 % (13.2-15.2) H 05/10/21 05:47 Plt Count 341 K/mm3 (140-440) 05/10/21 05:47 Lymph % (Auto) 5.3 % (13.4-35.0) L 05/10/21 05:47 [place] % (Auto) 12.7 % (0.0-7.3) H 05/10/21 05:47 Eos % (Auto) 4.2 % (0.0-4.3) 05/10/21 05:47 Baso % (Auto) 1.3 % (0.0-1.8) 05/10/21 05:47 Lymph # (Auto) 0.3 K/mm3 (1.2-5.4) L 05/10/21 05:47 [place] # (Auto) 0.7 K/mm3 (0.0-0.8) 05/10/21 05:47 Eos # (Auto) 0.2 K/mm3 (0.0-0.4) 05/10/21 05:47 Baso # (Auto) 0.1 K/mm3 (0.0-0.1) 05/10/21 05:47 Add Manual Diff Complete 05/08/21 05:43 Total Counted 100 05/08/21 05:43 Seg Neutrophils % 76.5 % (40.0-70.0) H 05/10/21 05:47 Seg Neuts % (Manual) 85.0 % (40.0-70.0) H 05/08/21 05:43 Lymphocytes % (Manual) 4.0 % (13.4-35.0) L 05/08/21 05:43 Monocytes % (Manual) 5.0 % (0.0-7.3) 05/08/21 05:43 Eosinophils % (Manual) 6.0 % (0.0-4.3) H 05/08/21 05:43 Nucleated RBC % Not Reportable 05/08/21 05:43 Seg Neutrophils # 4.4 K/mm3 (1.8-7.7) 05/10/21 05:47 Seg Neutrophils # Man 4.9 K/mm3 (1.8-7.7) 05/08/21 05:43 Band Neutrophils # 0.0 K/mm3 05/08/21 05:43 Lymphocytes # (Manual) 0.2 K/mm3 (1.2-5.4) L 05/08/21 05:43 Abs React Lymphs (Man) 0.0 K/mm3 05/08/21 05:43 Monocytes # (Manual) 0.3 K/mm3 (0.0-0.8) 05/08/21 05:43 Eosinophils # (Manual) 0.3 K/mm3 (0.0-0.4) 05/08/21 05:43 Basophils # (Manual) 0.0 K/mm3 (0.0-0.1) 05/08/21 05:43 Metamyelocytes # 0.0 K/mm3 05/08/21 05:43 Myelocytes # 0.0 K/mm3 05/08/21 05:43 Promyelocytes # 0.0 K/mm3 05/08/21 05:43 Blast Cells # 0.0 K/mm3 05/08/21 05:43 WBC Morphology Not Reportable 05/08/21 05:43 Hypersegmented Neuts Not Reportable 05/08/21 05:43 Hyposegmented Neuts Not Reportable 05/08/21 05:43 Hypogranular Neuts Not Reportable 05/08/21 05:43 Smudge Cells Not Reportable 05/08/21 05:43 Toxic Granulation Not Reportable 05/08/21 05:43 Toxic Vacuolation Not Reportable 05/08/21 05:43 Dohle Bodies Not Reportable 05/08/21 05:43 Pelger-Huet Anomaly Not Reportable 05/08/21 05:43 Terrence Rods Not Reportable 05/08/21 05:43 Platelet Estimate Consistent w auto 05/08/21 05:43 Clumped Platelets Not Reportable 05/08/21 05:43 Plt Clumps, EDTA Not Reportable 05/08/21 05:43 Large Platelets Not Reportable 05/08/21 05:43 Giant Platelets Rare 05/08/21 05:43 Platelet Satelliting Not Reportable 05/08/21 05:43 Plt Morphology Comment Not Reportable 05/08/21 05:43 RBC Morphology Not Reportable 05/08/21 05:43 Dimorphic RBCs Not Reportable 05/08/21 05:43 Polychromasia Not Reportable 05/08/21 05:43 Hypochromasia 1+ 05/08/21 05:43 Poikilocytosis 1+ 05/08/21 05:43 Anisocytosis Not Reportable 05/08/21 05:43 Microcytosis Not Reportable 05/08/21 05:43 Macrocytosis Not Reportable 05/08/21 05:43 Spherocytes Not Reportable 05/08/21 05:43 Pappenheimer Bodies Not Reportable 05/08/21 05:43 Sickle Cells Not Reportable 05/08/21 05:43 Target Cells Not Reportable 05/08/21 05:43 Tear Drop Cells Not Reportable 05/08/21 05:43 Ovalocytes Few 05/08/21 05:43 Helmet Cells Not Reportable 05/08/21 05:43 Jimenez-Sorrel Bodies Not Reportable 05/08/21 05:43 Brooks Rings Not Reportable 05/08/21 05:43 Talbott Cells Not Reportable 05/08/21 05:43 Bite Cells Not Reportable 05/08/21 05:43 Crenated Cell Not Reportable 05/08/21 05:43 Elliptocytes Few 05/08/21 05:43 Acanthocytes (Spur) Not Reportable 05/08/21 05:43 Rouleaux Not Reportable 05/08/21 05:43 Hemoglobin C Crystals Not Reportable 05/08/21 05:43 Schistocytes Not Reportable 05/08/21 05:43 Malaria parasites Not Reportable 05/08/21 05:43 Justin Bodies Not Reportable 05/08/21 05:43 Hem Pathologist Commnt No 05/08/21 05:43 Sodium 129 mmol/L (137-145) L 05/10/21 05:47 Potassium 5.0 mmol/L (3.6-5.0) 05/10/21 05:47 Chloride 96.4 mmol/L (98-107) L 05/10/21 05:47 Carbon Dioxide 24 mmol/L (22-30) 05/10/21 05:47 Anion Gap 14 mmol/L 05/10/21 05:47 BUN 14 mg/dL (9-20) 05/10/21 05:47 Creatinine 0.7 mg/dL (0.8-1.3) L 05/10/21 05:47 Estimated GFR > 60 ml/min 05/10/21 05:47 BUN/Creatinine Ratio 20 % 05/10/21 05:47 Glucose 89 mg/dL (75-100) 05/10/21 05:47 Calcium 7.1 mg/dL (8.4-10.2) L 05/10/21 05:47 Phosphorus 3.90 mg/dL (2.5-4.5) 05/10/21 05:47 Magnesium 1.50 mg/dL (1.7-2.3) L 05/10/21 05:47 Iron 22 ug/dL (49-181) L 05/08/21 05:43 TIBC 255 mcg/dL (250-450) 05/08/21 05:43 % Saturation 8.63 % 05/08/21 05:43 Transferrin 230 mg/dl (180-329) 05/08/21 05:43 Total Bilirubin 0.50 mg/dL (0.1-1.2) 05/08/21 05:43 AST 44 units/L (5-40) H 05/08/21 05:43 ALT 40 units/L (7-56) 05/08/21 05:43 Alkaline Phosphatase 248 units/L (35-129) H 05/08/21 05:43 Troponin T < 0.010 ng/mL (0.00-0.029) 05/07/21 17:30 NT-Pro-B Natriuret Pep 2308 pg/mL (0-900) H 05/07/21 17:30 Total Protein 4.4 g/dL (6.3-8.2) L 05/08/21 05:43 Albumin 2.0 g/dL (3.9-5) L 05/08/21 05:43 Albumin/Globulin Ratio 0.8 % 05/08/21 05:43 Vitamin B12 257.7 pg/mL (211-911) 05/08/21 07:17 Soto/IV: Voiding Method Toilet Active Medications - Current Medications Current Medications: Generic Name Dose Route Start Last Admin Trade Name Freq PRN Reason Stop Dose Admin Acetaminophen 650 mg 05/07/21 20:25 Acetaminophen 325 Mg Tab PO Q4H PRN Pain MILD(1-3)/Fever >100.5/ERAZO Hydrocodone Bitart/Acetaminophen 1 each 05/08/21 12:30 05/08/21 14:40 Hydrocodone/Acetaminophen 5-325 Mg Tab PO 1 each Q8H PRN Administration Pain, Moderate (4-6) Albuterol 2.5 mg 05/07/21 21:00 05/09/21 17:36 Albuterol 2.5 Mg/3 Ml Nebu IH 2.5 mg QID PRN Administration Shortness Of Breath Alprazolam 2 mg 05/09/21 22:00 05/10/21 10:18 Alprazolam 1 Mg Tab PO 2 mg BID PRERNA Administration Apixaban 5 mg 05/07/21 22:00 05/10/21 10:18 Apixaban 5 Mg Tab PO 5 mg BID PRERNA Administration Aspirin 81 mg 05/08/21 10:00 05/10/21 10:18 Aspirin 81 Mg Tab Chew PO 81 mg QDAY PRERNA Administration Atorvastatin Calcium 40 mg 05/07/21 22:00 05/09/21 22:19 Atorvastatin 20 Mg Tab PO 40 mg QHS PRERNA Administration Colchicine 0.6 mg 05/08/21 10:00 05/10/21 10:18 Colchicine 0.6 Mg Tab PO 0.6 mg DAILY PRERNA Administration Famotidine 20 mg 05/07/21 22:00 05/10/21 10:18 Famotidine 20 Mg Tab PO 20 mg BID PRERNA Administration Dobutamine HCl/Dextrose 500 mg in 250 mls @ 12.09 mls/hr 05/10/21 12:00 05/10/21 12:55 Dobutrex Drip 500mg/D5w 250ml IV 05/13/21 11:59 5 mcg/kg/min DIRECT PRERNA 12.09 mls/hr Administration Protocol 5 MCG/KG/MIN Ondansetron HCl 4 mg 05/07/21 20:25 05/10/21 09:18 Ondansetron 4 Mg/2 Ml Inj IV 4 mg Q8H PRN Administration Nausea And Vomiting Sodium Chloride 10 ml 05/07/21 22:00 05/10/21 10:18 Sodium Chloride 0.9% 10 Ml Flush Syringe IV 10 ml BID PRERNA Administration Sodium Chloride 10 ml 05/07/21 20:25 Sodium Chloride 0.9% 10 Ml Flush Syringe IV PRN PRN LINE FLUSH Torsemide 100 mg 05/10/21 06:00 05/10/21 10:18 Torsemide 100 Mg Tab PO 100 mg DAILY@0600 PRERNA Administration Nutrition/Malnutrition Assess - Dietary Evaluation Nutrition/Malnutrition Findings: Nutrition Notes Start: 05/08/21 12:01 Freq: Status: Active Protocol: Document 05/08/21 12:21 GB (Rec: 05/08/21 12:36 GB [id number]) Nutrition Notes Need for Assessment generated from: MD Order Initial or Follow up Assessment Current Diagnosis COPD,Heart Failure Current Diet Cardiac Labs/Tests 05/08: Na 132 low [id number], Ca 6.1 Low [id number] improving, Fe 22 low, AST 44 elevated [id number] improving, AlkP 248 elevated [id number] improving Pertinent Medications furosemide, KCl, NaCl, MgSulfate/KCl @131ml/hr Height 5 ft 3 in Weight 85.1 kg [place] Body Weight (kg) 56.36 BMI 33.2 Intake Prior to Admission Good Weight change and time frame No reported change in weight in H&P Weight Status Appropriate Subjective/Other Information Per admission, fluid retention r/t chronic heart complications. No reported change in PO intake, weight, strength, mobility, or compromised skin integrity Percent of energy/protein needs met: 75-100% with po intake of meals Burn Absent Trauma Absent GI Symptoms Diarrhea Food Allergy No Skin Integrity/Comment no reported complications Current % PO Good (75-100%) Minimum of two criteria No physical signs of malnutrition Protein-Calorie Malnutrition N\A #1 Nutrition Diagnosis Predicted suboptimal energy intake Comments: related to SOB Etiology related to fluid retention, chronic heart complications As Evidenced by Signs and Symptoms admit recommended from patients' primary for fluid retention/SOB Diagnosis Progress(for reassessment Continues documentation) Is patient on ventilator? No Is Patient Ambulatory and/or Out of Bed Yes REE-([place]-ambulatory/OOB) [ 96 [id number]] Kcal/Kg value to use for calculation 20 Approximate Energy Requirements Using 1702 kcal/Kg Calculation Used for Recommendations Kcal/kg Additional Notes Energy needs met by po intake of meals. BMI is in the overweight to obesity I range fluctuating with relation to fluid retention. Nutritional supplement is not recommended. Nutrition Intervention Nutrition Support: Discontinue nutritional supplement beverage ensure BID . Goal #1 PO intake of meals to continue at 50% or greater daily Goal #2 Weight to maintain within overweight BMI range during LOS Anticipated Discharge Needs: Monitoring of high sodium containing foods (preprocessed and packaged) Follow-Up By: 05/15/[address] available for education if patient requests.
[2021-05-10] MEDS: BUDESONIDE 0.5 MG/2 ML NEBU IH SCH (21:49)
[2021-05-10] MEDS: ARFORMOTEROL 15 MCG/2 ML NEBU IH SCH (21:50)
--- NOTE | 2021-05-11 00:39 | Consultation ---
DATE OF CONSULTATION: 05/10/2021 PULMONARY CONSULT NOTE CONSULTING PHYSICIAN: Dr. Rubio. REASON FOR CONSULTATION: Acute COPD exacerbation, hypoxemic respiratory failure. CHIEF COMPLAINT AND HISTORY OF PRESENT ILLNESS: As follows: The patient is a now 60-year-old male with past medical history according to him significant both for congestive heart failure, but also COPD, really not on any medications according to him except for cardiac medications. He states that he takes blood pressure medication and he is on apixaban for blood thinning. He apparently has a history of heart surgery at 6 months of age for tetralogy of Fallot and came into the hospital for increasing shortness of breath, orthopnea and difficulty breathing. He denied any new-onset leg pain or swelling, either unilaterally or bilaterally. He did not tell me that he had run out of any medications, but again was not taking anything for COPD and on no inhalers. Also denied being on home oxygen therapy. He states he has had a long-term issue with dyspnea on exertion. 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 He denied any loss of taste, loss of smell. No exposure to coronavirus. He has a remote 10+ pack year tobacco smoking history, but states that he does. He now does not smoke. He also is vaccinated against COVID-19 infection. I was admitted to the hospital for further management. As part of the evaluation, cardiac evaluation was done. We are asked to see the patient for management of his COPD. When I stopped by to see him, he was sitting up in chair at the side of the bed. He was on about 3 liters of supplemental oxygen via nasal cannula. He denied any gross or streaky hemoptysis. He denied any fevers or chills. This really is much of this history of presentation as I have. I should mention he denies any knowledge of the history of pulmonary hypertension. He does have implanted cardiac device. He calls it a pacemaker. PAST MEDICAL HISTORY: Again, significant for congestive heart failure, chronic obstructive lung disease, history of hypertension according to him. PAST SURGICAL HISTORY: He has had open heart surgery twice as a child and then coronary artery bypass grafting in 2013. He also had an AICD implanted. MEDICATIONS: He was on at the time I stopped by to see him, according to the medication administration record included the following: Tylenol 650 mg p.o. q.4 hours p.r.n. mild pain or fevers, [place] 5/325 one tablet p.o. q.8 hours p.r.n. moderate pain, albuterol nebulizer treatments 2.5 mg inhaled q.i.d. p.r.n. shortness of breath, Xanax 2 mg p.o. b.i.d., Eliquis 5 mg p.o. b.i.d., aspirin 81 mg p.o. daily, Lipitor 40 mg p.o. at bedtime, colchicine 0.6 mg p.o. daily, dobutamine drip 5 mcg per kilogram per minute, Pepcid 20 mg p.o. b.i.d., Zofran 4 mg IV q. 8 hours p.r.n. nausea and vomiting and torsemide 100 mg p.o. daily. ALLERGIES: TRAMADOL. Nature of this allergy is unknown. DIET: Obese gentleman. Denies acute weight loss or gain in the preceding few weeks to months. FAMILY AND SOCIAL HISTORY: Lives in the community. He has a 10 plus pack year remote tobacco smoking history. He denies any other family history otherwise. He does state that there is a family history of heart disease, but cannot describe what that is. REVIEW OF SYSTEMS: He states he has had episodes of loss of consciousness in the past, but has been blamed on hypoxemia. He denies gross hematochezia or melena. Denies gross hematuria or dysuria. No hematemesis. No hemoptysis. Denies heat or cold intolerance. Denies polydipsia, polyuria. Complete 13-system review of system was obtained. Pertinent positives and/or negatives as in body of history above, otherwise they are noncontributory. PHYSICAL EXAMINATION: VITAL SIGNS: At presentation, he was afebrile, temperature 97.9 degrees Fahrenheit, pulse of 89, respiratory rate of 16, blood pressure 100/50, O2 sats were 100% on 3 liters nasal cannula. GENERAL: He is a middle-aged obese male. Normocephalic, atraumatic, talking to me with slightly interrupted sentences and mildly increased respiratory effort at rest. HEAD, EYES, EARS, NOSE, AND THROAT: Anicteric. No conjunctival erythema. Oropharynx was moist. No gross jugular venous distention. No thy thyromegaly. No high grade Mallampati score. Grossly, there were no palpable lymph nodes in the supraclavicular or submandibular lymph node chains. LUNGS: Auscultation of both lung abdi was significant for right lower lobe inspiratory crackles, greater than left. Some dullness to percussion in the left lower lobe region. No active wheezing. He does have a prolonged expiratory phase. HEART: Sounds 1 and 2 are heard, regular rate and rhythm at the time of my evaluation without overt rubs or murmurs. ABDOMEN: Soft, full, protuberant. Bowel sounds are positive, nontender, no palpable hepatosplenomegaly. EXTREMITIES: Without overt digital clubbing or cyanosis. He has trace pitting edema. Pedal pulses are 2+ bilaterally. NEUROLOGIC: Pupils are equal, round, about 4 mm, reactive to light. Extraocular muscle movements are intact. He moves all 4 extremities spontaneously. SKIN: Normal turgor in the areas examined without overt cellulitis or rash. He does have a post-cardiac surgery scar on the sternotomy, well healed. Please see the wound care nurses' notes for full description of his skin. PSYCHIATRIC: Mood was normal. Affect was appropriate. He has seemed to have intact judgment and insight. LABORATORY DATA: From my review are as follows: Admission white cell count 6400, hemoglobin 9.2, hematocrit 28.4, platelet count 330. No significant band forms on the manual differential. Serum sodium was 134 at presentation, 2.7 of potassium, chloride was 92, bicarbonate 29, BUN 13, creatinine 0.8, glucose was 90. Magnesium was low at 1.0, it is still low at 1.5. AST slightly elevated at 47, otherwise liver function tests essentially within normal limits. Troponin was within normal limits. Albumin was low at 2.2. Potassium is now corrected. His serum magnesium is still 1.5. No microbiology studies. Chest x-ray was done, it shows gross cardiomegaly and implanted cardiac device in the right upper anterior chest wall and large right main pulmonary artery trunk. It also shows evidence of right ventricular enlargement consistent with his tetralogy of Fallot diagnosis. A 2D echocardiogram showed elevated right sided pressures as expected. RV systolic pressure of 50-55 mmHg. Ejection fraction 40-45% as well as he does not mention any intraventricular thrombus appendage or any other abnormalities. ASSESSMENT: 1. Acute congestive heart failure exacerbation. 2. Chronic obstructive pulmonary disease. 3. History of tetralogy of Fallot. 4. Pulmonary hypertension. 5. Obesity. 6. History of hypertension. 7. Coronary artery disease. 8. Hypomagnesemia. PLAN: I do feel that the major pathology he has related to the cardiomyopathy overall. His pulmonary hypertension is at least partially related to his tetralogy of Fallot, however, with a tobacco history, the COPD history and obesity those also are probably contributing to pulmonary hypertension. I do agree with optimization of cardiac function. I will put him on long-acting bronchodilators and inhaled corticosteroids for presumed and radiographic chronic obstructive lung disease. He will benefit from pulmonary function testing to optimize treatment. He is fully anticoagulated and I doubt we are dealing with venous thromboembolic disorder. Weight loss has been counseled. A sleep study will be of benefit and certainly follow up in the outpatient pulmonary/sleep clinic setting will be important. Consideration will be given for addition of Revatio to his treatments. For now, we will continue the acute phase to optimize his cardiac function. Continued tobacco abstinence has been counseled. I will be repeating his magnesium. I will be starting him on GI prophylaxis especially with this gentleman being on full anticoagulation. Gentle diuresis while watching to ensure that we do not provoke cardiac decompensation from intravascular volume depletion. Flu and pneumonia vaccination will be addressed per protocol. Thank you very much for the consult. We will follow along and make further recommendations as picture progresses/becomes clearer. TID: [id number] RECEIPT: [id number] YANNI/ESME
[2021-05-11 06:31] LABS: BUN/Creatinine Ratio 14; Blood Urea Nitrogen 14 mg/dL (9-20); Calcium 7.1 mg/dL (8.4-10.2); Hemolysis Index 2
[2021-05-11 06:32] LABS: Basophils # (Auto) 0.1 K/mm3 (0.0-0.1); Eosinophils # (Auto) 0.1 K/mm3 (0.0-0.4); Eosinophils % (Auto) 1.5 % (0.0-4.3); Hematocrit 24.1 % (35.5-45.6); Hemoglobin 7.8 gm/dl (11.8-15.2); Lymphocytes # (Auto) 0.2 K/mm3 (1.2-5.4); Mean Corpuscular HGB Conc 32 % (32-34); Mean Corpuscular Volume 72 fl (84-94); Monocytes # (Auto) 0.9 K/mm3 (0.0-0.8); Monocytes % (Auto) 12.4 % (0.0-7.3); Platelet Count 260 K/mm3 (140-440); Red Blood Count 3.37 M/mm3 (3.65-5.03); Red Cell Distribution Width 19.6 % (13.2-15.2)
[2021-05-11] MEDS ORDERED: CALCIUM GLUCONATE 2,000 MG in SODIUM CHLORIDE 0.9% 100 ML IV ONE (06:39)
[2021-05-11] MEDS ORDERED: MAGNESIUM SULFATE 1 GM in SODIUM CHLORIDE 0.9% 50 ML IV ONE (06:39)
[2021-05-11] MEDS: TORSEMIDE 100 MG TAB PO SCH (06:41)
[2021-05-11] MEDS: BUDESONIDE 0.5 MG/2 ML NEBU IH SCH ×2 (08:36→19:20)
[2021-05-11] MEDS: ARFORMOTEROL 15 MCG/2 ML NEBU IH SCH ×2 (08:37→19:20)
[2021-05-11] MEDS: DOBUTamine/D5W 500 MG/250 ML 500 MG/250 ML BAG IV SCH (10:53)
[2021-05-11] MEDS: APIXABAN 5 MG TAB PO SCH ×2 (10:54→22:36)
[2021-05-11] MEDS: COLCHICINE 0.6 MG TAB PO SCH (10:54)
[2021-05-11] MEDS: FAMOTIDINE 20 MG TAB PO SCH ×2 (10:54→22:36)
[2021-05-11] MEDS: ASPIRIN 81 MG TAB CHEW PO SCH (10:54)
[2021-05-11] MEDS: ALPRAZolam 1 MG TAB PO SCH ×2 (10:54→22:36)
--- NOTE | 2021-05-11 12:09 | Progress Note ---
Assessment and Plan Acute congestive heart failure exacerbation Chronic obstructive pulmonary disease H/O tetralogy of Fallot Pulmonary hypertension Obesity History of hypertension Coronary artery disease Hypomagnesemia - continue to wean supplemental oxygen to keep O2 sats > 90% - continue bronchodilators (BENEDICT & LABA) with pulm hygiene per RT - de-escalate Dobutrex per cardiology recommendations - continue inhaled corticosteroids - continue to avoid nephrotoxins, renally dose all medications - continue mobility protocols to prevent pressure ulcers - PT/OT as tolerated - Wound care per RN/WCT - continue accuchecks with glycemic control per SSI for target blood glucose < 180 mg/dL - tobacco abstinence strongly counseled at the bedside - home oxygen evaluation at discharge - GI & VTE prophylaxis - Flu & pneumovax per protocol - Pulmonary out patient follow up for PFTs and optimization of respiratory status - continue other care per attending / other consultants - prn analgesia per pain score ... re-evaluate in am & prn Subjective Date of service: 05/11/21 Principal diagnosis: AE-CHF; COPD; H/O tetralogy of Fallot; Pulmonary HTN; CAD; Obesity Interval history: Patient is seen today for: AE-CHF; COPD; H/O tetralogy of Fallot; Pulmonary HTN; CAD; Obesity Seen and examined at bedside; 24hour events reviewed; nursing and respiratory care staff consulted; no adverse overnight events reported to me; resting in bed; Objective Vital Signs - 12hr 05/11/21 05/11/21 05/11/21 08:37 08:38 08:52 Pulse Rate [ 65 Bilateral] Respiratory 18 Rate [Bilateral ] O2 Sat by Pulse 98 100 Oximetry Constitutional: no acute distress Eyes: non-icteric ENT: oropharynx moist, other Neck: supple, no lymphadenopathy Effort: mildly labored Ascultation: Bilateral: rhonchi Percussion: Bilateral: not dull Cardiovascular: regular rate and rhythm Gastrointestinal: normoactive bowel sounds, soft, non-tender, non-distended Extremities: no cyanosis, pulses normal, no ischemia or petechiae Neurologic: pupils equal and round, CN II-XII normal Psychiatric: mood appropriate, affect normal CBC and BMP: 05/11/21 05:54 05/16/21 08:55 Abnormal lab findings: Abnormal Labs 05/07/21 05/07/21 05/07/21 17:30 17:30 17:30 RBC Hgb 9.2 L Hct 28.4 L MCV 72 L MCH 23 L MCHC RDW 19.6 H Lymph % (Auto) 5.0 L [place] % (Auto) 15.2 H Lymph # (Auto) 0.3 L [place] # (Auto) 1.0 H Seg Neutrophils % 76.8 H Seg Neuts % (Manual) Lymphocytes % (Manual) Eosinophils % (Manual) Lymphocytes # (Manual) Sodium 134 L Potassium 2.7 L* Chloride 92.3 L Creatinine Glucose Calcium 6.0 L Magnesium 1.00 L Iron AST 47 H Alkaline Phosphatase 276 H NT-Pro-B Natriuret Pep 2308 H Total Protein 4.4 L Albumin 2.2 L 05/08/21 05/08/21 05/08/21 05:43 05:43 05:43 RBC Hgb 8.8 L Hct 28.2 L MCV 72 L MCH 22 L MCHC 31 L RDW 19.7 H Lymph % (Auto) [place] % (Auto) Lymph # (Auto) [place] # (Auto) Seg Neutrophils % Seg Neuts % (Manual) 85.0 H Lymphocytes % (Manual) 4.0 L Eosinophils % (Manual) 6.0 H Lymphocytes # (Manual) 0.2 L Sodium 132 L Potassium Chloride 95.1 L Creatinine Glucose Calcium 6.1 L Magnesium Iron 22 L AST 44 H Alkaline Phosphatase 248 H NT-Pro-B Natriuret Pep Total Protein 4.4 L Albumin 2.0 L 05/09/21 05/09/21 05/10/21 05:27 05:27 05:47 RBC Hgb 8.4 L 8.7 L Hct 27.0 L 26.7 L MCV 72 L 72 L MCH 23 L 23 L MCHC 31 L RDW 19.6 H 20.4 H Lymph % (Auto) 3.8 L 5.3 L [place] % (Auto) 13.3 H 12.7 H Lymph # (Auto) 0.3 L 0.3 L [place] # (Auto) 1.0 H Seg Neutrophils % 79.6 H 76.5 H Seg Neuts % (Manual) Lymphocytes % (Manual) Eosinophils % (Manual) Lymphocytes # (Manual) Sodium 133 L Potassium [place] 97.1 L Creatinine Glucose 102 H Calcium 6.7 L Magnesium 1.40 L Iron AST Alkaline Phosphatase NT-Pro-B Natriuret Pep Total Protein Albumin 05/10/21 05/11/21 05/11/21 05:47 05:54 05:54 RBC 3.37 L Hgb 7.8 L Hct 24.1 L MCV 72 L MCH 23 L MCHC RDW 19.6 H Lymph % (Auto) 3.0 L [place] % (Auto) 12.4 H Lymph # (Auto) 0.2 L [place] # (Auto) 0.9 H Seg Neutrophils % 82.1 H Seg Neuts % (Manual) Lymphocytes % (Manual) Eosinophils % (Manual) Lymphocytes # (Manual) Sodium 129 L 130 L Potassium [place] 96.4 L 93.0 L Creatinine 0.7 L Glucose Calcium 7.1 L 7.1 L Magnesium 1.50 L 1.50 L Iron AST Alkaline Phosphatase NT-Pro-B Natriuret Pep Total Protein Albumin Allied health notes reviewed: nursing
--- NOTE | 2021-05-11 13:20 | Progress Note ---
Assessment and Plan - Patient Problems (1) Edema Current Visit: Yes Status: Acute Plan to address problem: Continue diuretics and dobutamine for management of edema and fluid overload that is predominantly due to right-sided heart failure. (2) Right-sided heart failure Current Visit: Yes Status: Acute Plan to address problem: Continue management of right-sided heart failure and cor pulmonale as previously outlined. (3) Chronic atrial fibrillation Current Visit: Yes Status: Acute Plan to address problem: Rate control strategy of atrial fibrillation and chronic anticoagulation. Subjective Date of service: 05/11/21 Interval history: Patient is comfortable, no new cardiac complaints. He is tolerating intravenous dobutamine infusion, with awake overnight monitor showing atrial fibrillation with a well-controlled ventricular rate. Objective Vital Signs Temp Pulse Pulse Resp Resp BP Pulse Ox 05/11/21 08:52 100 05/11/21 08:38 98 05/11/21 08:37 65 18 05/10/21 22:00 18 98 05/10/21 21:50 70 20 05/10/21 21:46 100 05/10/21 19:44 97.2 F L 75 19 106/36 98 05/10/21 16:46 18 96 05/10/21 16:01 97.9 F 77 18 126/53 97 - Physical Examination General: No Apparent Distress HEENT: Positive: PERRL Neck: Positive: neck supple Cardiac: Positive: irregularly irregular Lungs: Positive: Decreased Breath Sounds Neuro: Positive: Grossly Intact Abdomen: Positive: Soft Skin: Positive: Clear Extremities: Present: +2 Edema - Labs and Meds CBC 05/11/21 Range/Units 05:54 WBC 7.4 (4.5-11.0) K/mm3 RBC 3.37 L (3.65-5.03) M/mm3 Hgb 7.8 L (11.8-15.2) gm/dl Hct 24.1 L (35.5-45.6) % Plt Count 260 (140-440) K/mm3 Lymph # (Auto) 0.2 L (1.2-5.4) K/mm3 [place] # (Auto) 0.9 H (0.0-0.8) K/mm3 Eos # (Auto) 0.1 (0.0-0.4) K/mm3 Baso # (Auto) 0.1 (0.0-0.1) K/mm3 Comprehensive Metabolic Panel 05/11/21 Range/Units 05:54 Sodium 130 L (137-145) mmol/L Potassium 4.0 (3.6-5.0) mmol/L Chloride 93.0 L (98-107) mmol/L Carbon Dioxide 28 (22-30) mmol/L BUN 14 (9-20) mg/dL Creatinine 1.0 (0.8-1.3) mg/dL Glucose 96 (75-100) mg/dL Calcium 7.1 L (8.4-10.2) mg/dL
--- NOTE | 2021-05-11 15:03 | Progress Note ---
Assessment and Plan Assessment and plan: #Acute on systolic right heart failure #Pulmonary hypertension - Continue CHF exacerbation protocol: Strict I/O, monitor urine output every shift, daily weights, afterload reduction, low-sodium diet, and fluid restriction of approximately 1.5 mL/day - Supplemental oxygen: 2 L - Cardiology consulted; appreciate recs. Cardiology is starting dobutamine 5 mg/KG in the setting of right heart failure - TTE (05/08/2021) pending - Holding antihypertensives due to concern for low blood pressures - Discontinued IV bumex due to lack of diuresis (per patient) and starting torsemide 100mg daily (patient endorses this being the best diuretic for him); blood pressure allowed diuresis -Pulmonology consulted; pending recs #Acute hypoxic respiratory failure-resolved #COPD -Currently on 2 L nasal cannula (baseline of 2 L at home) -Patient endorses no longer having home oxygen due to social issues with brother -Order placed for home oxygen upon discharge; ready upon discharge -No concern for COPD exacerbation given lack of fever, increased sputum, or sign of possible infection -Continue nebulizer treatment #Atrial fibrillation -Continue with Eliquis #Anemia -Hemoglobin 8.8 -Likely anemia of chronic disease; continue to monitor #Hypomagnesemia -Repleted and will continue to monitor #Hypokalemia -Repleted and will continue to monitor #Chronic malnutrition -Nutrition consulted; appreciate recs #Anxiety -Continue home Xanax (home dose 5mg BID) at 2mg BID - will continue to monitor #Social concerns -Patient endorses being homeless due to Covid complications -Social work notified letter working on possible placement Disposition Plan: Continue medical management. History Interval history: No acute events overnight. Hospitalist Physical - Constitutional Vitals: Temp Pulse Resp BP Pulse Ox 97.2 F L 65 18 106/36 100 05/10/21 19:44 05/11/21 08:37 05/11/21 08:37 05/10/21 19:44 05/11/21 08:52 General appearance: Present: no acute distress, mild distress - EENT Eyes: Present: PERRL, EOM intact ENT: hearing intact, clear oral mucosa, edentulous - Neck Neck: Present: supple, normal ROM - Respiratory Respiratory effort: labored Respiratory: bilateral: diminished, rales - Cardiovascular Rhythm: irregularly irregular Heart Sounds: Present: S1 & S2 - Extremities Extremities: no ischemia, pulses intact, pulses symmetrical, normal temperature Extremity abnormal: edema (1-2+ pitting edema to) Peripheral Pulses: within normal limits - Abdominal General gastrointestinal: soft, non-tender, non-distended, normal bowel sounds - Integumentary Integumentary: Present: clear, warm, dry - Psychiatric Psychiatric: appropriate mood/affect, intact judgment & insight, memory intact, cooperative - Neurologic Neurologic: CNII-XII intact - Allied Health Allied health notes reviewed: nursing HEART Score - HEART Score EKG: Non-specific Age: 45-65 Risk factors: 1-2 risk factors Troponin: Troponin T < 0.010 ng/mL (0.00-0.029) 05/07/21 17:30 Troponin: < normal limit - Critical Actions Critical Actions: 4-6 pts:12-16.6% risk of adverse cardiac event. Should be admitted Results - Labs CBC & Chem 7: 05/11/21 05:54 05/11/21 05:54 Labs: Laboratory Last Values WBC 7.4 K/mm3 (4.5-11.0) 05/11/21 05:54 RBC 3.37 M/mm3 (3.65-5.03) L 05/11/21 05:54 Hgb 7.8 gm/dl (11.8-15.2) L 05/11/21 05:54 Hct 24.1 % (35.5-45.6) L 05/11/21 05:54 MCV 72 fl (84-94) L 05/11/21 05:54 MCH 23 pg (28-32) L 05/11/21 05:54 MCHC 32 % (32-34) 05/11/21 05:54 RDW 19.6 % (13.2-15.2) H 05/11/21 05:54 Plt Count 260 K/mm3 (140-440) 05/11/21 05:54 Lymph % (Auto) 3.0 % (13.4-35.0) L 05/11/21 05:54 [place] % (Auto) 12.4 % (0.0-7.3) H 05/11/21 05:54 Eos % (Auto) 1.5 % (0.0-4.3) 05/11/21 05:54 Baso % (Auto) 1.0 % (0.0-1.8) 05/11/21 05:54 Lymph # (Auto) 0.2 K/mm3 (1.2-5.4) L 05/11/21 05:54 [place] # (Auto) 0.9 K/mm3 (0.0-0.8) H 05/11/21 05:54 Eos # (Auto) 0.1 K/mm3 (0.0-0.4) 05/11/21 05:54 Baso # (Auto) 0.1 K/mm3 (0.0-0.1) 05/11/21 05:54 Add Manual Diff Complete 05/08/21 05:43 Total Counted 100 05/08/21 05:43 Seg Neutrophils % 82.1 % (40.0-70.0) H 05/11/21 05:54 Seg Neuts % (Manual) 85.0 % (40.0-70.0) H 05/08/21 05:43 Lymphocytes % (Manual) 4.0 % (13.4-35.0) L 05/08/21 05:43 Monocytes % (Manual) 5.0 % (0.0-7.3) 05/08/21 05:43 Eosinophils % (Manual) 6.0 % (0.0-4.3) H 05/08/21 05:43 Nucleated RBC % Not Reportable 05/08/21 05:43 Seg Neutrophils # 6.0 K/mm3 (1.8-7.7) 05/11/21 05:54 Seg Neutrophils # Man 4.9 K/mm3 (1.8-7.7) 05/08/21 05:43 Band Neutrophils # 0.0 K/mm3 05/08/21 05:43 Lymphocytes # (Manual) 0.2 K/mm3 (1.2-5.4) L 05/08/21 05:43 Abs React Lymphs (Man) 0.0 K/mm3 05/08/21 05:43 Monocytes # (Manual) 0.3 K/mm3 (0.0-0.8) 05/08/21 05:43 Eosinophils # (Manual) 0.3 K/mm3 (0.0-0.4) 05/08/21 05:43 Basophils # (Manual) 0.0 K/mm3 (0.0-0.1) 05/08/21 05:43 Metamyelocytes # 0.0 K/mm3 05/08/21 05:43 Myelocytes # 0.0 K/mm3 05/08/21 05:43 Promyelocytes # 0.0 K/mm3 05/08/21 05:43 Blast Cells # 0.0 K/mm3 05/08/21 05:43 WBC Morphology Not Reportable 05/08/21 05:43 Hypersegmented Neuts Not Reportable 05/08/21 05:43 Hyposegmented Neuts Not Reportable 05/08/21 05:43 Hypogranular Neuts Not Reportable 05/08/21 05:43 Smudge Cells Not Reportable 05/08/21 05:43 Toxic Granulation Not Reportable 05/08/21 05:43 Toxic Vacuolation Not Reportable 05/08/21 05:43 Dohle Bodies Not Reportable 05/08/21 05:43 Pelger-Huet Anomaly Not Reportable 05/08/21 05:43 Terrence Rods Not Reportable 05/08/21 05:43 Platelet Estimate Consistent w auto 05/08/21 05:43 Clumped Platelets Not Reportable 05/08/21 05:43 Plt Clumps, EDTA Not Reportable 05/08/21 05:43 Large Platelets Not Reportable 05/08/21 05:43 Giant Platelets Rare 05/08/21 05:43 Platelet Satelliting Not Reportable 05/08/21 05:43 Plt Morphology Comment Not Reportable 05/08/21 05:43 RBC Morphology Not Reportable 05/08/21 05:43 Dimorphic RBCs Not Reportable 05/08/21 05:43 Polychromasia Not Reportable 05/08/21 05:43 Hypochromasia 1+ 05/08/21 05:43 Poikilocytosis 1+ 05/08/21 05:43 Anisocytosis Not Reportable 05/08/21 05:43 Microcytosis Not Reportable 05/08/21 05:43 Macrocytosis Not Reportable 05/08/21 05:43 Spherocytes Not Reportable 05/08/21 05:43 Pappenheimer Bodies Not Reportable 05/08/21 05:43 Sickle Cells Not Reportable 05/08/21 05:43 Target Cells Not Reportable 05/08/21 05:43 Tear Drop Cells Not Reportable 05/08/21 05:43 Ovalocytes Few 05/08/21 05:43 Helmet Cells Not Reportable 05/08/21 05:43 [place] Bodies Not Reportable 05/08/21 05:43 [place] Rings Not Reportable 05/08/21 05:43 Sherley Cells Not Reportable 05/08/21 05:43 Bite Cells Not Reportable 05/08/21 05:43 Crenated Cell Not Reportable 05/08/21 05:43 Elliptocytes Few 05/08/21 05:43 Acanthocytes (Spur) Not Reportable 05/08/21 05:43 Rouleaux Not Reportable 05/08/21 05:43 Hemoglobin C Crystals Not Reportable 05/08/21 05:43 Schistocytes Not Reportable 05/08/21 05:43 Malaria parasites Not Reportable 05/08/21 05:43 Justin Bodies Not Reportable 05/08/21 05:43 Hem Pathologist Commnt No 05/08/21 05:43 Sodium 130 mmol/L (137-145) L 05/11/21 05:54 Potassium 4.0 mmol/L (3.6-5.0) 05/11/21 05:54 Chloride 93.0 mmol/L (98-107) L 05/11/21 05:54 Carbon Dioxide 28 mmol/L (22-30) 05/11/21 05:54 Anion Gap 13 mmol/L 05/11/21 05:54 BUN 14 mg/dL (9-20) 05/11/21 05:54 Creatinine 1.0 mg/dL (0.8-1.3) 05/11/21 05:54 Estimated GFR > 60 ml/min 05/11/21 05:54 BUN/Creatinine Ratio 14 % 05/11/21 05:54 Glucose 96 mg/dL (75-100) 05/11/21 05:54 Calcium 7.1 mg/dL (8.4-10.2) L 05/11/21 05:54 Phosphorus 4.40 mg/dL (2.5-4.5) 05/11/21 05:54 Magnesium 1.50 mg/dL (1.7-2.3) L 05/11/21 05:54 Iron 22 ug/dL (49-181) L 05/08/21 05:43 TIBC 255 mcg/dL (250-450) 05/08/21 05:43 % Saturation 8.63 % 05/08/21 05:43 Transferrin 230 mg/dl (180-329) 05/08/21 05:43 Total Bilirubin 0.50 mg/dL (0.1-1.2) 05/08/21 05:43 AST 44 units/L (5-40) H 05/08/21 05:43 ALT 40 units/L (7-56) 05/08/21 05:43 Alkaline Phosphatase 248 units/L (35-129) H 05/08/21 05:43 Troponin T < 0.010 ng/mL (0.00-0.029) 05/07/21 17:30 NT-Pro-B Natriuret Pep 2308 pg/mL (0-900) H 05/07/21 17:30 Total Protein 4.4 g/dL (6.3-8.2) L 05/08/21 05:43 Albumin 2.0 g/dL (3.9-5) L 05/08/21 05:43 Albumin/Globulin Ratio 0.8 % 05/08/21 05:43 Vitamin B12 257.7 pg/mL (211-911) 05/08/21 07:17 Soto/IV: Voiding Method Urinal Active Medications - Current Medications Current Medications: Generic Name Dose Route Start Last Admin Trade Name Freq PRN Reason Stop Dose Admin Acetaminophen 650 mg 05/07/21 20:25 Acetaminophen 325 Mg Tab PO Q4H PRN Pain MILD(1-3)/Fever >100.5/ERAZO Hydrocodone Bitart/Acetaminophen 1 each 05/08/21 12:30 05/08/21 14:40 Hydrocodone/Acetaminophen 5-325 Mg Tab PO 1 each Q8H PRN Administration Pain, Moderate (4-6) Albuterol 2.5 mg 05/07/21 21:00 05/09/21 17:36 Albuterol 2.5 Mg/3 Ml Nebu IH 2.5 mg QID PRN Administration Shortness Of Breath Alprazolam 2 mg 05/09/21 22:00 05/11/21 10:54 Alprazolam 1 Mg Tab PO 2 mg BID PRERNA Administration Apixaban 5 mg 05/07/21 22:00 05/11/21 10:54 Apixaban 5 Mg Tab PO 5 mg BID PRERNA Administration Arformoterol Tartrate 15 mcg 05/10/21 20:00 05/11/21 08:37 Arformoterol 15 Mcg/2 Ml Nebu IH 15 mcg Q12HRT PRERNA Administration Aspirin 81 mg 05/08/21 10:00 05/11/21 10:54 Aspirin 81 Mg Tab Chew PO 81 mg QDAY PRERNA Administration Atorvastatin Calcium 40 mg 05/07/21 22:00 05/10/21 21:32 Atorvastatin 20 Mg Tab PO 40 mg QHS PRERNA Administration Budesonide 0.5 mg 05/10/21 20:00 05/11/21 08:36 Budesonide 0.5 Mg/2 Ml Nebu IH 0.5 mg Q12HRT PRERNA Administration Colchicine 0.6 mg 05/08/21 10:00 05/11/21 10:54 Colchicine 0.6 Mg Tab PO 0.6 mg DAILY PRERNA Administration Famotidine 20 mg 05/07/21 22:00 05/11/21 10:54 Famotidine 20 Mg Tab PO 20 mg BID PRERNA Administration Dobutamine HCl/Dextrose 500 mg in 250 mls @ 12.09 mls/hr 05/10/21 12:00 05/11/21 10:53 Dobutrex Drip 500mg/D5w 250ml IV 05/13/21 11:59 5 mcg/kg/min DIRECT PRERNA 12.09 mls/hr Administration Protocol 5 MCG/KG/MIN Ondansetron HCl 4 mg 05/07/21 20:25 05/10/21 09:18 Ondansetron 4 Mg/2 Ml Inj IV 4 mg Q8H PRN Administration Nausea And Vomiting Sodium Chloride 10 ml 05/07/21 22:00 05/11/21 10:54 Sodium Chloride 0.9% 10 Ml Flush Syringe IV 10 ml BID PRERNA Administration Sodium Chloride 10 ml 05/07/21 20:25 Sodium Chloride 0.9% 10 Ml Flush Syringe IV PRN PRN LINE FLUSH Torsemide 100 mg 05/10/21 06:00 05/11/21 06:41 Torsemide 100 Mg Tab PO 100 mg DAILY@0600 PRERNA Administration Nutrition/Malnutrition Assess - Dietary Evaluation Nutrition/Malnutrition Findings: Nutrition Notes Start: 05/08/21 12:01 Freq: Status: Active Protocol: Document 05/08/21 12:21 GB (Rec: 05/08/21 12:36 GB [id number]) Nutrition Notes Need for Assessment generated from: MD Order Initial or Follow up Assessment Current Diagnosis COPD,Heart Failure Current Diet Cardiac Labs/Tests 05/08: Na 132 low [id number], Ca 6.1 Low [id number] improving, Fe 22 low, AST 44 elevated [id number] improving, AlkP 248 elevated [id number] improving Pertinent Medications furosemide, KCl, NaCl, MgSulfate/KCl @131ml/hr Height 5 ft 3 in Weight 85.1 kg [place] Body Weight (kg) 56.36 BMI 33.2 Intake Prior to Admission Good Weight change and time frame No reported change in weight in H&P Weight Status Appropriate Subjective/Other Information Per admission, fluid retention r/t chronic heart complications. No reported change in PO intake, weight, strength, mobility, or compromised skin integrity Percent of energy/protein needs met: 75-100% with po intake of meals Burn Absent Trauma Absent GI Symptoms Diarrhea Food Allergy No Skin Integrity/Comment no reported complications Current % PO Good (75-100%) Minimum of two criteria No physical signs of malnutrition Protein-Calorie Malnutrition N\A #1 Nutrition Diagnosis Predicted suboptimal energy intake Comments: related to SOB Etiology related to fluid retention, chronic heart complications As Evidenced by Signs and Symptoms admit recommended from patients' primary for fluid retention/SOB Diagnosis Progress(for reassessment Continues documentation) Is patient on ventilator? No Is Patient Ambulatory and/or Out of Bed Yes REE-([facility]-ambulatory/OOB) [ 5.969 NUTR.[id number]] Kcal/Kg value to use for calculation 20 Approximate Energy Requirements Using 1702 kcal/Kg Calculation Used for Recommendations Kcal/kg Additional Notes Energy needs met by po intake of meals. BMI is in the overweight to obesity I range fluctuating with relation to fluid retention. Nutritional supplement is not recommended. Nutrition Intervention Nutrition Support: Discontinue nutritional supplement beverage ensure BID . Goal #1 PO intake of meals to continue at 50% or greater daily Goal #2 Weight to maintain within overweight BMI range during LOS Anticipated Discharge Needs: Monitoring of high sodium containing foods (preprocessed and packaged) Follow-Up By: 05/15/[address] available for education if patient requests. - Attestation Statement I have reviewed and agreed w/ Malnutrition eval & tx plan: Yes
[2021-05-12] MEDS: TORSEMIDE 100 MG TAB PO SCH (05:49)
[2021-05-12 06:48] LABS: Blood Urea Nitrogen 15 mg/dL (9-20); Calcium 7.2 mg/dL (8.4-10.2); Hemolysis Index 3
[2021-05-12 07:10] LABS: BUN/Creatinine Ratio 21
[2021-05-12] MEDS ORDERED: TORSEMIDE 100 MG TAB PO SCH (08:00)
[2021-05-12] MEDS ORDERED: CALCIUM GLUCONATE 2,000 MG in SODIUM CHLORIDE 0.9% 100 ML IV ONE (08:00)
[2021-05-12] MEDS ORDERED: TORSEMIDE 10 MG TAB PO ONE (09:10)
[2021-05-12] MEDS ORDERED: FUROSEMIDE 100 MG/10 ML INJ IV ONE (09:47)
[2021-05-12] MEDS: ASPIRIN 81 MG TAB CHEW PO SCH (10:29)
[2021-05-12] MEDS: ALPRAZolam 1 MG TAB PO SCH ×2 (10:29→21:58)
[2021-05-12] MEDS: APIXABAN 5 MG TAB PO SCH ×2 (10:29→21:58)
[2021-05-12] MEDS: COLCHICINE 0.6 MG TAB PO SCH (10:29)
[2021-05-12] MEDS: FAMOTIDINE 20 MG TAB PO SCH ×2 (10:29→21:59)
[2021-05-12] MEDS: MIDODRINE 5 MG TAB PO SCH ×3 (10:31→17:29)
[2021-05-12] MEDS: ARFORMOTEROL 15 MCG/2 ML NEBU IH SCH ×2 (11:20→20:41)
[2021-05-12] MEDS: BUDESONIDE 0.5 MG/2 ML NEBU IH SCH ×2 (11:21→20:41)
--- NOTE | 2021-05-12 12:29 | Progress Note ---
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 He is now off dobutamine. Continue torsemide as needed. Renal function stable. Continue Eliquis for stroke prevention. Recommend ambulation to document oxygen levels and home oxygen as appropriate. Subjective Date of service: 05/12/21 Interval history: No events. Breathing back to baseline. Dobutamine has been discontinued. Patient states that he was previously on home oxygen 2 L; however, he has lost access to this recently precipitated his decompensation of heart failure. Telemetryreviewed, atrial fibrillation with controlled rate and intermittent ventricular pacing Objective Vital Signs Temp Pulse Pulse Resp Resp BP Pulse Ox 05/12/21 11:22 98 05/12/21 11:21 92 H 16 05/12/21 07:55 96.0 F L 72 20 105/45 100 05/12/21 04:58 98.6 F 61 18 108/46 100 05/11/21 22:00 18 100 05/11/21 20:35 98.3 F 66 18 121/48 100 05/11/21 19:20 65 65 H 100 05/11/21 16:28 97.6 F 63 18 117/33 100 05/11/21 13:04 98.1 F 66 20 108/37 100 - Physical Examination Narrative exam: Gen-NAD, cooperative Neck-supple, no JVD CV-RRR, + systolic murmurs, midline sternal scar well healed Lungs-CTAB, on 2 L nasal cannula oxygen Abd-soft/nt/nd Ext-warm to touch,1+ pitting edema on arms/legs Neuro-awake, alert, and oriented; no gross focal deficits Psych-affect appropriate Right chest ICD site is well-healed. Other: Echo - LVEF 40-45%, severely dilated and hypokinetic RV, mod-severe TR, severe KENNETH, moderate LAE, moderate pHTN (RVSP 50-55) - Labs and Meds Comprehensive Metabolic Panel 05/12/21 Range/Units 05:23 Sodium 134 L (137-145) mmol/L Potassium 3.4 L (3.6-5.0) mmol/L Chloride 95.0 L (98-107) mmol/L Carbon Dioxide 30 (22-30) mmol/L BUN 15 (9-20) mg/dL Creatinine 0.7 L (0.8-1.3) mg/dL Glucose 87 (75-100) mg/dL Calcium 7.2 L (8.4-10.2) mg/dL
[2021-05-12] MEDS: DOBUTamine/D5W 500 MG/250 ML 500 MG/250 ML BAG IV SCH (13:41)
--- NOTE | 2021-05-12 14:30 | Progress Note ---
Assessment and Plan Assessment and plan: #Acute on systolic right heart failure #Pulmonary hypertension - Continue CHF exacerbation protocol: Strict I/O, monitor urine output every shift, daily weights, afterload reduction, low-sodium diet, and fluid restriction of approximately 1.5 mL/day - Supplemental oxygen: 2 L - Cardiology consulted; appreciate recs. Cardiology is starting dobutamine 5 mg/KG in the setting of right heart failure - TTE (05/08/2021) pending - Holding antihypertensives due to concern for low blood pressures - Discontinue torsemide and restarting IV Bumex 1mg BID for effective diuresis. -Continued volume overload; however, patient continues to consume more liquids than allowed per daily fluid restriction. Patient counseled on decreasing fluids. -Pulmonology consulted; pending recs #Acute hypoxic respiratory failure-resolved #COPD -Currently on 2 L nasal cannula (baseline of 2 L at home) -Patient endorses no longer having home oxygen due to social issues with brother -Order placed for home oxygen upon discharge; ready upon discharge -No concern for COPD exacerbation given lack of fever, increased sputum, or sign of possible infection -Continue nebulizer treatment #Atrial fibrillation -Continue with Eliquis #Anemia -Hemoglobin 8.8 -Likely anemia of chronic disease; continue to monitor #Hypomagnesemia -Repleted and will continue to monitor #Hypokalemia -Repleted and will continue to monitor #Chronic malnutrition -Nutrition consulted; appreciate recs #Anxiety -Continue home Xanax (home dose 5mg BID) at 2mg BID - will continue to monitor #Social concerns -Patient endorses being homeless due to Covid complications -Social work notified letter working on possible placement Disposition Plan: Continue medical management History Interval history: No acute events overnight. Hospitalist Physical - Constitutional Vitals: Temp Pulse Resp BP Pulse Ox 98.3 F 64 20 110/35 94 05/12/21 12:14 05/12/21 12:14 05/12/21 12:14 05/12/21 12:16 05/12/21 12:14 General appearance: Present: no acute distress, mild distress - EENT Eyes: Present: PERRL, EOM intact ENT: hearing intact, clear oral mucosa, dentition normal - Neck Neck: Present: supple, normal ROM - Respiratory Respiratory effort: normal (2 L nasal) Respiratory: bilateral: rales (Bilateral lower lobe) - Cardiovascular Rhythm: irregularly irregular Heart Sounds: Present: S1 & S2 - Extremities Extremities: no ischemia, pulses intact, pulses symmetrical, No edema, normal temperature, normal color Extremity abnormal: edema (2+ pitting edema to bilateral mid thigh) Peripheral Pulses: within normal limits - Abdominal General gastrointestinal: soft, non-tender, non-distended, normal bowel sounds - Integumentary Integumentary: Present: clear, warm, dry - Psychiatric Psychiatric: appropriate mood/affect, intact judgment & insight, memory intact, cooperative - Neurologic Neurologic: CNII-XII intact, moves all extremities HEART Score - HEART Score EKG: Non-specific Age: 45-65 Risk factors: 1-2 risk factors Troponin: Troponin T < 0.010 ng/mL (0.00-0.029) 05/07/21 17:30 Troponin: < normal limit - Critical Actions Critical Actions: 4-6 pts:12-16.6% risk of adverse cardiac event. Should be admitted Results - Labs CBC & Chem 7: 05/11/21 05:54 05/12/21 05:23 Labs: Laboratory Last Values WBC 7.4 K/mm3 (4.5-11.0) 05/11/21 05:54 RBC 3.37 M/mm3 (3.65-5.03) L 05/11/21 05:54 Hgb 7.8 gm/dl (11.8-15.2) L 05/11/21 05:54 Hct 24.1 % (35.5-45.6) L 05/11/21 05:54 MCV 72 fl (84-94) L 05/11/21 05:54 MCH 23 pg (28-32) L 05/11/21 05:54 MCHC 32 % (32-34) 05/11/21 05:54 RDW 19.6 % (13.2-15.2) H 05/11/21 05:54 Plt Count 260 K/mm3 (140-440) 05/11/21 05:54 Lymph % (Auto) 3.0 % (13.4-35.0) L 05/11/21 05:54 [place] % (Auto) 12.4 % (0.0-7.3) H 05/11/21 05:54 Eos % (Auto) 1.5 % (0.0-4.3) 05/11/21 05:54 Baso % (Auto) 1.0 % (0.0-1.8) 05/11/21 05:54 Lymph # (Auto) 0.2 K/mm3 (1.2-5.4) L 05/11/21 05:54 [place] # (Auto) 0.9 K/mm3 (0.0-0.8) H 05/11/21 05:54 Eos # (Auto) 0.1 K/mm3 (0.0-0.4) 05/11/21 05:54 Baso # (Auto) 0.1 K/mm3 (0.0-0.1) 05/11/21 05:54 Add Manual Diff Complete 05/08/21 05:43 Total Counted 100 05/08/21 05:43 Seg Neutrophils % 82.1 % (40.0-70.0) H 05/11/21 05:54 Seg Neuts % (Manual) 85.0 % (40.0-70.0) H 05/08/21 05:43 Lymphocytes % (Manual) 4.0 % (13.4-35.0) L 05/08/21 05:43 Monocytes % (Manual) 5.0 % (0.0-7.3) 05/08/21 05:43 Eosinophils % (Manual) 6.0 % (0.0-4.3) H 05/08/21 05:43 Nucleated RBC % Not Reportable 05/08/21 05:43 Seg Neutrophils # 6.0 K/mm3 (1.8-7.7) 05/11/21 05:54 Seg Neutrophils # Man 4.9 K/mm3 (1.8-7.7) 05/08/21 05:43 Band Neutrophils # 0.0 K/mm3 05/08/21 05:43 Lymphocytes # (Manual) 0.2 K/mm3 (1.2-5.4) L 05/08/21 05:43 Abs React Lymphs (Man) 0.0 K/mm3 05/08/21 05:43 Monocytes # (Manual) 0.3 K/mm3 (0.0-0.8) 05/08/21 05:43 Eosinophils # (Manual) 0.3 K/mm3 (0.0-0.4) 05/08/21 05:43 Basophils # (Manual) 0.0 K/mm3 (0.0-0.1) 05/08/21 05:43 Metamyelocytes # 0.0 K/mm3 05/08/21 05:43 Myelocytes # 0.0 K/mm3 05/08/21 05:43 Promyelocytes # 0.0 K/mm3 05/08/21 05:43 Blast Cells # 0.0 K/mm3 05/08/21 05:43 WBC Morphology Not Reportable 05/08/21 05:43 Hypersegmented Neuts Not Reportable 05/08/21 05:43 Hyposegmented Neuts Not Reportable 05/08/21 05:43 Hypogranular Neuts Not Reportable 05/08/21 05:43 Smudge Cells Not Reportable 05/08/21 05:43 Toxic Granulation Not Reportable 05/08/21 05:43 Toxic Vacuolation Not Reportable 05/08/21 05:43 Dohle Bodies Not Reportable 05/08/21 05:43 Pelger-Huet Anomaly Not Reportable 05/08/21 05:43 Terrence Rods Not Reportable 05/08/21 05:43 Platelet Estimate Consistent w auto 05/08/21 05:43 Clumped Platelets Not Reportable 05/08/21 05:43 Plt Clumps, EDTA Not Reportable 05/08/21 05:43 Large Platelets Not Reportable 05/08/21 05:43 Giant Platelets Rare 05/08/21 05:43 Platelet Satelliting Not Reportable 05/08/21 05:43 Plt Morphology Comment Not Reportable 05/08/21 05:43 RBC Morphology Not Reportable 05/08/21 05:43 Dimorphic RBCs Not Reportable 05/08/21 05:43 Polychromasia Not Reportable 05/08/21 05:43 Hypochromasia 1+ 05/08/21 05:43 Poikilocytosis 1+ 05/08/21 05:43 Anisocytosis Not Reportable 05/08/21 05:43 Microcytosis Not Reportable 05/08/21 05:43 Macrocytosis Not Reportable 05/08/21 05:43 Spherocytes Not Reportable 05/08/21 05:43 Pappenheimer Bodies Not Reportable 05/08/21 05:43 Sickle Cells Not Reportable 05/08/21 05:43 Target Cells Not Reportable 05/08/21 05:43 Tear Drop Cells Not Reportable 05/08/21 05:43 Ovalocytes Few 05/08/21 05:43 Helmet Cells Not Reportable 05/08/21 05:43 Jimenez-Lennon Bodies Not Reportable 05/08/21 05:43 Elmer Rings Not Reportable 05/08/21 05:43 Oxford Cells Not Reportable 05/08/21 05:43 Bite Cells Not Reportable 05/08/21 05:43 Crenated Cell Not Reportable 05/08/21 05:43 Elliptocytes Few 05/08/21 05:43 Acanthocytes (Spur) Not Reportable 05/08/21 05:43 Rouleaux Not Reportable 05/08/21 05:43 Hemoglobin C Crystals Not Reportable 05/08/21 05:43 Schistocytes Not Reportable 05/08/21 05:43 Malaria parasites Not Reportable 05/08/21 05:43 Justin Bodies Not Reportable 05/08/21 05:43 Hem Pathologist Commnt No 05/08/21 05:43 ABG pH 7.512 (7.320-7.450) H 05/12/21 12:05 POC ABG pCO2 42.2 mmHg (32.0-48.0) 05/12/21 12:05 POC ABG pO2 41.7 mmHg (83-108) L 05/12/21 12:05 POC ABG HCO3 33.1 05/12/21 12:05 ABG O2 Saturation 77.8 (0-100) 05/12/21 12:05 POC ABG Base Excess 9.2 05/12/21 12:05 ABG Hemoglobin 8.5 (12.0-17.5) L 05/12/21 12:05 ABG Oxyhemoglobin 76.8 (94-98) L 05/12/21 12:05 ABG Methemoglobin 0.3 (0.0-1.5) 05/12/21 12:05 ABG Sodium 127.8 mmol/L (136.0-145.0) L 05/12/21 12:05 ABG Potassium 3.0 mmol/L (3.40-4.50) L 05/12/21 12:05 ABG Chloride 93.0 mmol/L (98-107) L 05/12/21 12:05 ABG Glucose 104 mg/dL (65-95) H 05/12/21 12:05 Carboxyhemoglobin 1.0 (0.5-1.5) 05/12/21 12:05 FiO2 % 21.0 05/12/21 12:05 Sodium 134 mmol/L (137-145) L 05/12/21 05:23 Potassium 3.4 mmol/L (3.6-5.0) L 05/12/21 05:23 Chloride 95.0 mmol/L (98-107) L 05/12/21 05:23 Carbon Dioxide 30 mmol/L (22-30) 05/12/21 05:23 Anion Gap 12 mmol/L 05/12/21 05:23 BUN 15 mg/dL (9-20) 05/12/21 05:23 Creatinine 0.7 mg/dL (0.8-1.3) L 05/12/21 05:23 Estimated GFR > 60 ml/min 05/12/21 05:23 BUN/Creatinine Ratio 21 % 05/12/21 05:23 Glucose 87 mg/dL (75-100) 05/12/21 05:23 Calcium 7.2 mg/dL (8.4-10.2) L 05/12/21 05:23 Phosphorus 4.40 mg/dL (2.5-4.5) 05/12/21 05:23 Magnesium 1.70 mg/dL (1.7-2.3) 05/12/21 05:23 Iron 22 ug/dL (49-181) L 05/08/21 05:43 TIBC 255 mcg/dL (250-450) 05/08/21 05:43 % Saturation 8.63 % 05/08/21 05:43 Transferrin 230 mg/dl (180-329) 05/08/21 05:43 Total Bilirubin 0.50 mg/dL (0.1-1.2) 05/08/21 05:43 AST 44 units/L (5-40) H 05/08/21 05:43 ALT 40 units/L (7-56) 05/08/21 05:43 Alkaline Phosphatase 248 units/L (35-129) H 05/08/21 05:43 Troponin T < 0.010 ng/mL (0.00-0.029) 05/07/21 17:30 NT-Pro-B Natriuret Pep 2308 pg/mL (0-900) H 05/07/21 17:30 Total Protein 4.4 g/dL (6.3-8.2) L 05/08/21 05:43 Albumin 2.0 g/dL (3.9-5) L 05/08/21 05:43 Albumin/Globulin Ratio 0.8 % 05/08/21 05:43 Vitamin B12 257.7 pg/mL (211-911) 05/08/21 07:17 RBC Folic Acid >1000 ng/mL (>280) 05/08/21 05:43 Arterial Blood Glucose 104 mg/dL (65-95) H 05/12/21 12:05 Soto/IV: Voiding Method Urinal Active Medications - Current Medications Current Medications: Generic Name Dose Route Start Last Admin Trade Name Freq PRN Reason Stop Dose Admin Acetaminophen 650 mg 05/07/21 20:25 Acetaminophen 325 Mg Tab PO Q4H PRN Pain MILD(1-3)/Fever >100.5/ERAZO Hydrocodone Bitart/Acetaminophen 1 each 05/08/21 12:30 05/08/21 14:40 Hydrocodone/Acetaminophen 5-325 Mg Tab PO 1 each Q8H PRN Administration Pain, Moderate (4-6) Albuterol 2.5 mg 05/07/21 21:00 05/09/21 17:36 Albuterol 2.5 Mg/3 Ml Nebu IH 2.5 mg QID PRN Administration Shortness Of Breath Alprazolam 2 mg 05/09/21 22:00 05/12/21 10:29 Alprazolam 1 Mg Tab PO 2 mg BID PRERNA Administration Apixaban 5 mg 05/07/21 22:00 05/12/21 10:29 Apixaban 5 Mg Tab PO 5 mg BID PRERNA Administration Arformoterol Tartrate 15 mcg 05/10/21 20:00 05/12/21 11:20 Arformoterol 15 Mcg/2 Ml Nebu IH 15 mcg Q12HRT PRERNA Administration Aspirin 81 mg 05/08/21 10:00 05/12/21 10:29 Aspirin 81 Mg Tab Chew PO 81 mg QDAY PRERNA Administration Atorvastatin Calcium 40 mg 05/07/21 22:00 05/11/21 22:35 Atorvastatin 20 Mg Tab PO 40 mg QHS PRERNA Administration Budesonide 0.5 mg 05/10/21 20:00 05/12/21 11:21 Budesonide 0.5 Mg/2 Ml Nebu IH 0.5 mg Q12HRT PRERNA Administration Colchicine 0.6 mg 05/08/21 10:00 05/12/21 10:29 Colchicine 0.6 Mg Tab PO 0.6 mg DAILY PRERNA Administration Famotidine 20 mg 05/07/21 22:00 05/12/21 10:29 Famotidine 20 Mg Tab PO 20 mg BID PRERNA Administration Dobutamine HCl/Dextrose 500 mg in 250 mls @ 18.135 mls/hr 05/10/21 12:00 05/12/21 13:41 Dobutrex Drip 500mg/D5w 250ml IV 05/13/21 11:59 5 mcg/kg/min DIRECT PRERNA 12.09 mls/hr Administration Protocol 7.5 MCG/KG/MIN Midodrine 10 mg 05/12/21 12:00 05/12/21 12:20 Midodrine 5 Mg Tab PO Not Given TID@0800,1200,1600 [facility] Ondansetron HCl 4 mg 05/07/21 20:25 05/10/21 09:18 Ondansetron 4 Mg/2 Ml Inj IV 4 mg Q8H PRN Administration Nausea And Vomiting Sodium Chloride 10 ml 05/07/21 22:00 05/12/21 10:30 Sodium Chloride 0.9% 10 Ml Flush Syringe IV 10 ml BID PRERNA Administration Sodium Chloride 10 ml 05/07/21 20:25 Sodium Chloride 0.9% 10 Ml Flush Syringe IV PRN PRN LINE FLUSH Torsemide 150 mg 05/12/21 08:00 05/12/21 10:33 Torsemide 100 Mg Tab PO Not Given DAILY@0600 [facility] Nutrition/Malnutrition Assess - Dietary Evaluation Nutrition/Malnutrition Findings: Nutrition Notes Start: 05/08/21 12:01 Freq: Status: Active Protocol: Document 05/08/21 12:21 GB (Rec: 05/08/21 12:36 GB [id number]) Nutrition Notes Need for Assessment generated from: MD Order Initial or Follow up Assessment Current Diagnosis COPD,Heart Failure Current Diet Cardiac Labs/Tests 05/08: Na 132 low [id number], Ca 6.1 Low [id number] improving, Fe 22 low, AST 44 elevated [id number] improving, AlkP 248 elevated [id number] improving Pertinent Medications furosemide, KCl, NaCl, MgSulfate/KCl @131ml/hr Height 5 ft 3 in Weight 85.1 kg [place] Body Weight (kg) 56.36 BMI 33.2 Intake Prior to Admission Good Weight change and time frame No reported change in weight in H&P Weight Status Appropriate Subjective/Other Information Per admission, fluid retention r/t chronic heart complications. No reported change in PO intake, weight, strength, mobility, or compromised skin integrity Percent of energy/protein needs met: 75-100% with po intake of meals Burn Absent Trauma Absent GI Symptoms Diarrhea Food Allergy No Skin Integrity/Comment no reported complications Current % PO Good (75-100%) Minimum of two criteria No physical signs of malnutrition Protein-Calorie Malnutrition N\A #1 Nutrition Diagnosis Predicted suboptimal energy intake Comments: related to SOB Etiology related to fluid retention, chronic heart complications As Evidenced by Signs and Symptoms admit recommended from patients' primary for fluid retention/SOB Diagnosis Progress(for reassessment Continues documentation) Is patient on ventilator? No Is Patient Ambulatory and/or Out of Bed Yes REE-([facility]-ambulatory/OOB) [ 96 [id number]] Kcal/Kg value to use for calculation 20 Approximate Energy Requirements Using 1702 kcal/Kg Calculation Used for Recommendations Kcal/kg Additional Notes Energy needs met by po intake of meals. BMI is in the overweight to obesity I range fluctuating with relation to fluid retention. Nutritional supplement is not recommended. Nutrition Intervention Nutrition Support: Discontinue nutritional supplement beverage ensure BID . Goal #1 PO intake of meals to continue at 50% or greater daily Goal #2 Weight to maintain within overweight BMI range during LOS Anticipated Discharge Needs: Monitoring of high sodium containing foods (preprocessed and packaged) Follow-Up By: 05/15/[address] available for education if patient requests. - Attestation Statement I have reviewed and agreed w/ Malnutrition eval & tx plan: Yes
--- NOTE | 2021-05-12 17:04 | Progress Note ---
Assessment and Plan 10-year-old male with history of heart surgery at 6 months of age for tetralogy Fallot comes in for increasing shortness of breath and difficulty lying flat. His feet and ankles are not swollen. Patient has been retaining fluid and has worsening shortness of breath over the last 3 to 4 days. Patient follows with [facility] and his promotions associate is Dr. Jackson. No fever or chills. No loss of taste. No exposure to coronavirus. Patient does not smoke. Patient is vaccinated. Patient was sent by [facility] for further evaluation and treatment. And for worsening of shortness of breath. Patient has history of Hypertension, CHF, Asthma. Patient has history of cardiac surgery, Surgery for tetralogy of fallot at age 8 and has CABG in 2013. Patient also has history of valve replacement. Patient has pacemaker and defibrillator implantation. Patient alert, awake. Sitting up in bed with 2 litres O2. Patients O2 saturation dropping even for slight exertion. Patient afebrile. No leukocytosis. Blood pressure 105/36. Pulse 58. Patient is on Dobutamine. ABG on room air. ABG pH 7.512 (7.320-7.450) H 05/12/21 12:05 POC ABG pCO2 42.2 mmHg (32.0-48.0) 05/12/21 12:05 POC ABG pO2 41.7 mmHg (83-108) L 05/12/21 12:05 POC ABG HCO3 33.1 05/12/21 12:05 ABG O2 Saturation 77.8 (0-100) 05/12/21 12:05 Patient is a candidate for home O2. Recommend Home O2 3 litres via nasal canula. Chest xray done 05/07/21 reported Sternotomy and moderate cardiomegaly. No significant pulmonary or pleural abnormality. No pneumothorax. Patient presently on Apixaban, Famotidine, albuterol inhaler, Brovanna/Budesonide aerosol treatments. I spent critical care time of 45 minutes, obtaining history, review the chart, examine the patient, review chest xray and Lab results and talking to the nursing staff and respiratory therapy and work out plan of tratment in this critically ill hypoxic patient with multiple medical problems. - Patient Problems (1) Acute respiratory failure with hypoxia Current Visit: Yes Status: Acute Plan to address problem: O2 3 litres via nasal canula. Brovanna/Budesonide aerosol treatments q 12 hours. Albuterol inhaler 2 puffs q 6 hours prn for shortness of breath. Continue Apixaban. Continue famoidine. (2) Acute exacerbation of congestive heart failure Current Visit: Yes Status: Acute Qualifiers: Heart failure type: combined systolic and diastolic Qualified Code(s): I50.43 - Acute on chronic combined systolic (congestive) and diastolic (congestive) heart failure Plan to address problem: Patient is on Dobutamine and Bumex. Management as per cardiology (3) Chronic atrial fibrillation Current Visit: Yes Status: Acute Plan to address problem: Patient is on Apixaban. Management as per cardiology. (4) COPD (chronic obstructive pulmonary disease) Current Visit: Yes Status: Chronic Qualifiers: COPD type: emphysema Plan to address problem: O2 3 litres via nasal canula. Brovanna/Budesonide aerosol treatments q 12 hours. Albuterol inhaler 2 puffs q 6 hours prn for shortness of breath. Continue Apixaban. Continue famoidine. PFTs as out patient. (5) Pulmonary hypertension Current Visit: No Status: Acute Plan to address problem: Likely secondary to cardiac and pulmonary problems. Recommend O2 2 litres via nasal canula. Treatment of cardiac and pulmonary problems. (6) Tetralogy of Fallot s/p repair Current Visit: No Status: Acute Plan to address problem: Follow up as per cardiology. Subjective Date of service: 05/12/21 Interval history: 60-year-old male with history of heart surgery at 6 months of age for tetralogy Fallot comes in for increasing shortness of breath and difficulty lying flat. His feet and ankles are not swollen. Patient has been retaining fluid and has worsening shortness of breath over the last 3 to 4 days. Patient follows with [facility] and his promotions associate is Dr. Jackson. No fever or chills. No loss of taste. No exposure to coronavirus. Patient does not smoke. Patient is vaccinated. Patient was sent by [facility] for further evaluation and treatment. And for worsening of shortness of breath. Patient has history of Hypertension, CHF, Asthma. Patient has history of cardiac surgery, Surgery for tetralogy of fallot at age 8 and has CABG in 2014. Patient also has history of valve replacement. Patient has pacemaker and defibrillator implantation. Patient alert, awake. Sitting up in bed with 2 litres O2. Patients O2 saturation dropping even for slight exertion. Patient afebrile. No leukocytosis. Blood pressure 105/36. Pulse 58. Patient is on Dobutamine. ABG on room air. ABG pH 7.512 (7.320-7.450) H 05/12/21 12:05 POC ABG pCO2 42.2 mmHg (32.0-48.0) 05/12/21 12:05 POC ABG pO2 41.7 mmHg (83-108) L 05/12/21 12:05 POC ABG HCO3 33.1 05/12/21 12:05 ABG O2 Saturation 77.8 (0-100) 05/12/21 12:05 Patient is a candidate for home O2. Recommend Home O2 3 litres via nasal canula. Chest xray done 05/07/21 reported Sternotomy and moderate cardiomegaly. No significant pulmonary or pleural abnormality. No pneumothorax. Patient presently on Apixaban, Famotidine, albuterol inhaler, Brovanna/Budesonide aerosol treatments. Objective Vital Signs - 12hr 05/12/21 05/12/21 05/12/21 07:55 11:21 11:22 Temperature 96.0 F L Pulse Rate 72 Pulse Rate [ 92 H Bilateral] Respiratory 20 Rate Respiratory 16 Rate [Bilateral ] Blood Pressure 105/45 O2 Sat by Pulse 100 98 Oximetry 05/12/21 05/12/21 05/12/21 12:14 12:16 15:51 Temperature 98.3 F 98.5 F Pulse Rate 64 73 Pulse Rate [ Bilateral] Respiratory 20 20 Rate Respiratory Rate [Bilateral ] Blood Pressure 102/33 110/35 124/49 O2 Sat by Pulse 94 99 Oximetry 05/12/21 05/12/21 16:00 16:34 Temperature Pulse Rate 76 Pulse Rate [ Bilateral] Respiratory 18 Rate Respiratory Rate [Bilateral ] Blood Pressure O2 Sat by Pulse 98 Oximetry Constitutional: no acute distress, alert, other (Mild shortness of breath at rest.) Eyes: non-icteric ENT: oropharynx moist Neck: supple, no lymphadenopathy Effort: mildly labored Ascultation: Bilateral: diminished breath sounds, other (Prolonged expiratory phase.) Cardiovascular: irregular rhythm, murmur noted Gastrointestinal: normoactive bowel sounds, soft, non-tender Integumentary: normal Extremities: no cyanosis, no edema Neurologic: normal mental status, non-focal exam, pupils equal and round Psychiatric: mood appropriate, affect normal CBC and BMP: 05/11/21 05:54 05/12/21 05:23 ABG, PT/INR, D-dimer: ABG ABG pH 7.512 (7.320-7.450) H 05/12/21 12:05 POC ABG pCO2 42.2 mmHg (32.0-48.0) 05/12/21 12:05 POC ABG pO2 41.7 mmHg (83-108) L 05/12/21 12:05 POC ABG HCO3 33.1 05/12/21 12:05 ABG O2 Saturation 77.8 (0-100) 05/12/21 12:05 Abnormal lab findings: Abnormal Labs 05/07/21 05/07/21 05/07/21 17:30 17:30 17:30 RBC Hgb 9.2 L Hct 28.4 L MCV 72 L MCH 23 L MCHC RDW 19.6 H Lymph % (Auto) 5.0 L [place] % (Auto) 15.2 H Lymph # (Auto) 0.3 L [place] # (Auto) 1.0 H Seg Neutrophils % 76.8 H Seg Neuts % (Manual) Lymphocytes % (Manual) Eosinophils % (Manual) Lymphocytes # (Manual) ABG pH POC ABG pO2 ABG Hemoglobin ABG Oxyhemoglobin ABG Sodium ABG Potassium ABG Chloride ABG Glucose Sodium 134 L Potassium 2.7 L* Chloride 92.3 L Creatinine Glucose Calcium 6.0 L Magnesium 1.00 L Iron AST 47 H Alkaline Phosphatase 276 H NT-Pro-B Natriuret Pep 2308 H Total Protein 4.4 L Albumin 2.2 L Arterial Blood Glucose 05/08/21 05/08/21 05/08/21 05:43 05:43 05:43 RBC Hgb 8.8 L Hct 28.2 L MCV 72 L MCH 22 L MCHC 31 L RDW 19.7 H Lymph % (Auto) [place] % (Auto) Lymph # (Auto) [place] # (Auto) Seg Neutrophils % Seg Neuts % (Manual) 85.0 H Lymphocytes % (Manual) 4.0 L Eosinophils % (Manual) 6.0 H Lymphocytes # (Manual) 0.2 L ABG pH POC ABG pO2 ABG Hemoglobin ABG Oxyhemoglobin ABG Sodium ABG Potassium ABG Chloride ABG Glucose Sodium 132 L Potassium Chloride 95.1 L Creatinine Glucose Calcium 6.1 L Magnesium Iron 22 L AST 44 H Alkaline Phosphatase 248 H NT-Pro-B Natriuret Pep Total Protein 4.4 L Albumin 2.0 L Arterial Blood Glucose 05/09/21 05/09/21 05/10/21 05:27 05:27 05:47 RBC Hgb 8.4 L 8.7 L Hct 27.0 L 26.7 L MCV 72 L 72 L MCH 23 L 23 L MCHC 31 L RDW 19.6 H 20.4 H Lymph % (Auto) 3.8 L 5.3 L [place] % (Auto) 13.3 H 12.7 H Lymph # (Auto) 0.3 L 0.3 L [place] # (Auto) 1.0 H Seg Neutrophils % 79.6 H 76.5 H Seg Neuts % (Manual) Lymphocytes % (Manual) Eosinophils % (Manual) Lymphocytes # (Manual) ABG pH POC ABG pO2 ABG Hemoglobin ABG Oxyhemoglobin ABG Sodium ABG Potassium ABG Chloride ABG Glucose Sodium 133 L Potassium Chloride 97.1 L Creatinine Glucose 102 H Calcium 6.7 L Magnesium 1.40 L Iron AST Alkaline Phosphatase NT-Pro-B Natriuret Pep Total Protein Albumin Arterial Blood Glucose 05/10/21 05/11/21 05/11/21 05:47 05:54 05:54 RBC 3.37 L Hgb 7.8 L Hct 24.1 L MCV 72 L MCH 23 L MCHC RDW 19.6 H Lymph % (Auto) 3.0 L [place] % (Auto) 12.4 H Lymph # (Auto) 0.2 L [place] # (Auto) 0.9 H Seg Neutrophils % 82.1 H Seg Neuts % (Manual) Lymphocytes % (Manual) Eosinophils % (Manual) Lymphocytes # (Manual) ABG pH POC ABG pO2 ABG Hemoglobin ABG Oxyhemoglobin ABG Sodium ABG Potassium ABG Chloride ABG Glucose Sodium 129 L 130 L Potassium Chloride 96.4 L 93.0 L Creatinine 0.7 L Glucose Calcium 7.1 L 7.1 L Magnesium 1.50 L 1.50 L Iron AST Alkaline Phosphatase NT-Pro-B Natriuret Pep Total Protein Albumin Arterial Blood Glucose 05/12/21 05/12/21 05:23 12:05 RBC Hgb Hct MCV MCH MCHC RDW Lymph % (Auto) [place] % (Auto) Lymph # (Auto) [place] # (Auto) Seg Neutrophils % Seg Neuts % (Manual) Lymphocytes % (Manual) Eosinophils % (Manual) Lymphocytes # (Manual) ABG pH 7.512 H POC ABG pO2 41.7 L ABG Hemoglobin 8.5 L ABG Oxyhemoglobin 76.8 L ABG Sodium 127.8 L ABG Potassium 3.0 L ABG Chloride 93.0 L ABG Glucose 104 H Sodium 134 L Potassium 3.4 L Chloride 95.0 L Creatinine 0.7 L Glucose Calcium 7.2 L Magnesium Iron AST Alkaline Phosphatase NT-Pro-B Natriuret Pep Total Protein Albumin Arterial Blood Glucose 104 H Chest x-ray: report reviewed, image reviewed Additional Studies: CHEST 2 VIEWS : 05/07/21 INDICATION / CLINICAL INFORMATION: SOB. COMPARISON: 12/23/2018 FINDINGS: SUPPORT DEVICES: Right subclavian ICD lead has tip in right ventricle. HEART / MEDIASTINUM: Sternotomy and moderate cardiomegaly. LUNGS / PLEURA: No significant pulmonary or pleural abnormality. No pneumothorax. ADDITIONAL FINDINGS: No significant additional findings. IMPRESSION: 1. No acute findings.
[2021-05-12] MEDS: BUMETANIDE 1 MG/4 ML INJ IV SCH (17:34)
[2021-05-12] MEDS ORDERED: BUMETANIDE 1 MG/4 ML INJ IV SCH (22:00)
[2021-05-13] MEDS: BUMETANIDE 1 MG/4 ML INJ IV SCH ×2 (05:30→17:15)
[2021-05-13] MEDS: COLCHICINE 0.6 MG TAB PO SCH (09:48)
[2021-05-13] MEDS: MIDODRINE 5 MG TAB PO SCH ×3 (09:49→17:15)
[2021-05-13] MEDS: ALPRAZolam 1 MG TAB PO SCH ×2 (09:49→21:43)
[2021-05-13] MEDS: ASPIRIN 81 MG TAB CHEW PO SCH (09:50)
[2021-05-13] MEDS: APIXABAN 5 MG TAB PO SCH ×2 (09:50→21:44)
[2021-05-13] MEDS: FAMOTIDINE 20 MG TAB PO SCH ×2 (09:50→21:44)
[2021-05-13] MEDS: ARFORMOTEROL 15 MCG/2 ML NEBU IH SCH ×2 (10:09→20:37)
[2021-05-13] MEDS: BUDESONIDE 0.5 MG/2 ML NEBU IH SCH ×2 (10:09→20:37)
[2021-05-13] MEDS ORDERED: BUMETANIDE 1 MG/4 ML INJ IV ONE (11:24)
--- NOTE | 2021-05-13 15:25 | Progress Note ---
Assessment and Plan Assessment and plan: #Acute on systolic right heart failure #Pulmonary hypertension #Volume overload-worsening - Continue CHF exacerbation protocol: Strict I/O, monitor urine output every shift, daily weights, afterload reduction, low-sodium diet, and fluid restriction of approximately 1.5 mL/day - Supplemental oxygen: 2 L - Cardiology consulted; appreciate recs. Discontinue dobutamine 5 mg/KG in the setting of right heart failure per cardiology - TTE (05/08/2021) pending - Holding antihypertensives due to concern for low blood pressures; continue midodrine 10 mg 3 times daily to sustain blood pressures -Increased IV Bumex from 1 mg to 2 mg twice daily -Continued volume overload; however, patient continues to consume more liquids than allowed per daily fluid restriction. Patient counseled on decreasing fluids. -Pulmonology consulted; appreciate #Acute hypoxic respiratory failure-resolved #COPD -Currently on 2 L nasal cannula (baseline of 2 L at home) -Patient endorses no longer having home oxygen due to social issues with brother -Order placed for home oxygen upon discharge; ready upon discharge -No concern for COPD exacerbation given lack of fever, increased sputum, or sign of possible infection -Continue nebulizer treatment #Atrial fibrillation -Continue with Eliquis #Anemia -Hemoglobin 8.8 -Likely anemia of chronic disease; continue to monitor #Hypomagnesemia -Repleted and will continue to monitor #Hypokalemia -Repleted and will continue to monitor #Chronic malnutrition -Nutrition consulted; appreciate recs #Anxiety -Continue home Xanax (home dose 5mg BID) at 2mg BID - will continue to monitor #Social concerns -Patient endorses being homeless due to Covid complications -Social work notified letter working on possible placement Disposition Plan: Continue medical management Total Time Spent with Patient (Minutes): 40 History Interval history: No acute events overnight. Hospitalist Physical - Constitutional Vitals: Temp Pulse Resp BP Pulse Ox 97.5 F L 80 18 143/107 98 05/13/21 08:11 05/13/21 10:00 05/13/21 10:00 05/13/21 08:11 05/13/21 10:00 General appearance: Present: no acute distress - EENT Eyes: Present: PERRL, EOM intact ENT: hearing intact, clear oral mucosa, edentulous - Neck Neck: Present: supple, normal ROM - Respiratory Respiratory effort: normal Respiratory: bilateral: diminished (Diffuse), rales (Bibasilar), negative: rhonchi, wheezing Details: Currently on 2 L nasal cannula - Cardiovascular Rhythm: irregularly irregular Heart Sounds: Present: S1 & S2 - Extremities Extremities: no ischemia, pulses intact, pulses symmetrical, normal temperature, normal color Extremity abnormal: edema (Diffuse anasarca) Peripheral Pulses: within normal limits - Abdominal General gastrointestinal: soft, non-tender, non-distended, normal bowel sounds - Integumentary Integumentary: Present: clear, warm, dry - Psychiatric Psychiatric: appropriate mood/affect, intact judgment & insight, memory intact, cooperative - Neurologic Neurologic: CNII-XII intact, moves all extremities - Allied Health Allied health notes reviewed: nursing HEART Score - HEART Score EKG: Non-specific Age: 45-65 Risk factors: 1-2 risk factors Troponin: Troponin T < 0.010 ng/mL (0.00-0.029) 05/07/21 17:30 Troponin: < normal limit - Critical Actions Critical Actions: 4-6 pts:12-16.6% risk of adverse cardiac event. Should be admitted Results - Labs CBC & Chem 7: 05/11/21 05:54 05/12/21 05:23 Labs: Laboratory Last Values WBC 7.4 K/mm3 (4.5-11.0) 05/11/21 05:54 RBC 3.37 M/mm3 (3.65-5.03) L 05/11/21 05:54 Hgb 7.8 gm/dl (11.8-15.2) L 05/11/21 05:54 Hct 24.1 % (35.5-45.6) L 05/11/21 05:54 MCV 72 fl (84-94) L 05/11/21 05:54 MCH 23 pg (28-32) L 05/11/21 05:54 MCHC 32 % (32-34) 05/11/21 05:54 RDW 19.6 % (13.2-15.2) H 05/11/21 05:54 Plt Count 260 K/mm3 (140-440) 05/11/21 05:54 Lymph % (Auto) 3.0 % (13.4-35.0) L 05/11/21 05:54 Wilcox % (Auto) 12.4 % (0.0-7.3) H 05/11/21 05:54 Eos % (Auto) 1.5 % (0.0-4.3) 05/11/21 05:54 Baso % (Auto) 1.0 % (0.0-1.8) 05/11/21 05:54 Lymph # (Auto) 0.2 K/mm3 (1.2-5.4) L 05/11/21 05:54 Wilcox # (Auto) 0.9 K/mm3 (0.0-0.8) H 05/11/21 05:54 Eos # (Auto) 0.1 K/mm3 (0.0-0.4) 05/11/21 05:54 Baso # (Auto) 0.1 K/mm3 (0.0-0.1) 05/11/21 05:54 Add Manual Diff Complete 05/08/21 05:43 Total Counted 100 05/08/21 05:43 Seg Neutrophils % 82.1 % (40.0-70.0) H 05/11/21 05:54 Seg Neuts % (Manual) 85.0 % (40.0-70.0) H 05/08/21 05:43 Lymphocytes % (Manual) 4.0 % (13.4-35.0) L 05/08/21 05:43 Monocytes % (Manual) 5.0 % (0.0-7.3) 05/08/21 05:43 Eosinophils % (Manual) 6.0 % (0.0-4.3) H 05/08/21 05:43 Nucleated RBC % Not Reportable 05/08/21 05:43 Seg Neutrophils # 6.0 K/mm3 (1.8-7.7) 05/11/21 05:54 Seg Neutrophils # Man 4.9 K/mm3 (1.8-7.7) 05/08/21 05:43 Band Neutrophils # 0.0 K/mm3 05/08/21 05:43 Lymphocytes # (Manual) 0.2 K/mm3 (1.2-5.4) L 05/08/21 05:43 Abs React Lymphs (Man) 0.0 K/mm3 05/08/21 05:43 Monocytes # (Manual) 0.3 K/mm3 (0.0-0.8) 05/08/21 05:43 Eosinophils # (Manual) 0.3 K/mm3 (0.0-0.4) 05/08/21 05:43 Basophils # (Manual) 0.0 K/mm3 (0.0-0.1) 05/08/21 05:43 Metamyelocytes # 0.0 K/mm3 05/08/21 05:43 Myelocytes # 0.0 K/mm3 05/08/21 05:43 Promyelocytes # 0.0 K/mm3 05/08/21 05:43 Blast Cells # 0.0 K/mm3 05/08/21 05:43 WBC Morphology Not Reportable 05/08/21 05:43 Hypersegmented Neuts Not Reportable 05/08/21 05:43 Hyposegmented Neuts Not Reportable 05/08/21 05:43 Hypogranular Neuts Not Reportable 05/08/21 05:43 Smudge Cells Not Reportable 05/08/21 05:43 Toxic Granulation Not Reportable 05/08/21 05:43 Toxic Vacuolation Not Reportable 05/08/21 05:43 Dohle Bodies Not Reportable 05/08/21 05:43 Pelger-Huet Anomaly Not Reportable 05/08/21 05:43 Terrence Rods Not Reportable 05/08/21 05:43 Platelet Estimate Consistent w auto 05/08/21 05:43 Clumped Platelets Not Reportable 05/08/21 05:43 Plt Clumps, EDTA Not Reportable 05/08/21 05:43 Large Platelets Not Reportable 05/08/21 05:43 Giant Platelets Rare 05/08/21 05:43 Platelet Satelliting Not Reportable 05/08/21 05:43 Plt Morphology Comment Not Reportable 05/08/21 05:43 RBC Morphology Not Reportable 05/08/21 05:43 Dimorphic RBCs Not Reportable 05/08/21 05:43 Polychromasia Not Reportable 05/08/21 05:43 Hypochromasia 1+ 05/08/21 05:43 Poikilocytosis 1+ 05/08/21 05:43 Anisocytosis Not Reportable 05/08/21 05:43 Microcytosis Not Reportable 05/08/21 05:43 Macrocytosis Not Reportable 05/08/21 05:43 Spherocytes Not Reportable 05/08/21 05:43 Pappenheimer Bodies Not Reportable 05/08/21 05:43 Sickle Cells Not Reportable 05/08/21 05:43 Target Cells Not Reportable 05/08/21 05:43 Tear Drop Cells Not Reportable 05/08/21 05:43 Ovalocytes Few 05/08/21 05:43 Helmet Cells Not Reportable 05/08/21 05:43 [place] Bodies Not Reportable 05/08/21 05:43 [place] Rings Not Reportable 05/08/21 05:43 Callicoon Cells Not Reportable 05/08/21 05:43 Bite Cells Not Reportable 05/08/21 05:43 Crenated Cell Not Reportable 05/08/21 05:43 Elliptocytes Few 05/08/21 05:43 Acanthocytes (Spur) Not Reportable 05/08/21 05:43 Rouleaux Not Reportable 05/08/21 05:43 Hemoglobin C Crystals Not Reportable 05/08/21 05:43 Schistocytes Not Reportable 05/08/21 05:43 Malaria parasites Not Reportable 05/08/21 05:43 Justin Bodies Not Reportable 05/08/21 05:43 Hem Pathologist Commnt No 05/08/21 05:43 ABG pH 7.512 (7.320-7.450) H 05/12/21 12:05 POC ABG pCO2 42.2 mmHg (32.0-48.0) 05/12/21 12:05 POC ABG pO2 41.7 mmHg (83-108) L 05/12/21 12:05 POC ABG HCO3 33.1 05/12/21 12:05 ABG O2 Saturation 77.8 (0-100) 05/12/21 12:05 POC ABG Base Excess 9.2 05/12/21 12:05 ABG Hemoglobin 8.5 (12.0-17.5) L 05/12/21 12:05 ABG Oxyhemoglobin 76.8 (94-98) L 05/12/21 12:05 ABG Methemoglobin 0.3 (0.0-1.5) 05/12/21 12:05 ABG Sodium 127.8 mmol/L (136.0-145.0) L 05/12/21 12:05 ABG Potassium 3.0 mmol/L (3.40-4.50) L 05/12/21 12:05 ABG Chloride 93.0 mmol/L (98-107) L 05/12/21 12:05 ABG Glucose 104 mg/dL (65-95) H 05/12/21 12:05 Carboxyhemoglobin 1.0 (0.5-1.5) 05/12/21 12:05 FiO2 % 21.0 05/12/21 12:05 Sodium 134 mmol/L (137-145) L 05/12/21 05:23 Potassium 3.4 mmol/L (3.6-5.0) L 05/12/21 05:23 Chloride 95.0 mmol/L (98-107) L 05/12/21 05:23 Carbon Dioxide 30 mmol/L (22-30) 05/12/21 05:23 Anion Gap 12 mmol/L 05/12/21 05:23 BUN 15 mg/dL (9-20) 05/12/21 05:23 Creatinine 0.7 mg/dL (0.8-1.3) L 05/12/21 05:23 Estimated GFR > 60 ml/min 05/12/21 05:23 BUN/Creatinine Ratio 21 % 05/12/21 05:23 Glucose 87 mg/dL (75-100) 05/12/21 05:23 Calcium 7.2 mg/dL (8.4-10.2) L 05/12/21 05:23 Phosphorus 4.40 mg/dL (2.5-4.5) 05/12/21 05:23 Magnesium 1.70 mg/dL (1.7-2.3) 05/12/21 05:23 Iron 22 ug/dL (49-181) L 05/08/21 05:43 TIBC 255 mcg/dL (250-450) 05/08/21 05:43 % Saturation 8.63 % 05/08/21 05:43 Transferrin 230 mg/dl (180-329) 05/08/21 05:43 Total Bilirubin 0.50 mg/dL (0.1-1.2) 05/08/21 05:43 AST 44 units/L (5-40) H 05/08/21 05:43 ALT 40 units/L (7-56) 05/08/21 05:43 Alkaline Phosphatase 248 units/L (35-129) H 05/08/21 05:43 Troponin T < 0.010 ng/mL (0.00-0.029) 05/07/21 17:30 NT-Pro-B Natriuret Pep 2308 pg/mL (0-900) H 05/07/21 17:30 Total Protein 4.4 g/dL (6.3-8.2) L 05/08/21 05:43 Albumin 2.0 g/dL (3.9-5) L 05/08/21 05:43 Albumin/Globulin Ratio 0.8 % 05/08/21 05:43 Vitamin B12 257.7 pg/mL (211-911) 05/08/21 07:17 RBC Folic Acid >1000 ng/mL (>280) 05/08/21 05:43 Arterial Blood Glucose 104 mg/dL (65-95) H 05/12/21 12:05 Soto/IV: Voiding Method Urinal Active Medications - Current Medications Current Medications: Generic Name Dose Route Start Last Admin Trade Name Freq PRN Reason Stop Dose Admin Acetaminophen 650 mg 05/07/21 20:25 Acetaminophen 325 Mg Tab PO Q4H PRN Pain MILD(1-3)/Fever >100.5/ERAZO Hydrocodone Bitart/Acetaminophen 1 each 05/08/21 12:30 05/08/21 14:40 Hydrocodone/Acetaminophen 5-325 Mg Tab PO 1 each Q8H PRN Administration Pain, Moderate (4-6) Albuterol 2.5 mg 05/07/21 21:00 05/09/21 17:36 Albuterol 2.5 Mg/3 Ml Nebu IH 2.5 mg QID PRN Administration Shortness Of Breath Alprazolam 2 mg 05/09/21 22:00 05/13/21 09:49 Alprazolam 1 Mg Tab PO 2 mg BID PRERNA Administration Apixaban 5 mg 05/07/21 22:00 05/13/21 09:50 Apixaban 5 Mg Tab PO 5 mg BID PRERNA Administration Arformoterol Tartrate 15 mcg 05/10/21 20:00 05/13/21 10:09 Arformoterol 15 Mcg/2 Ml Nebu IH Not Given Q12HRT PRERNA Aspirin 81 mg 05/08/21 10:00 05/13/21 09:50 Aspirin 81 Mg Tab Chew PO 81 mg QDAY PRERNA Administration Atorvastatin Calcium 40 mg 05/07/21 22:00 05/12/21 21:58 Atorvastatin 20 Mg Tab PO 40 mg QHS PRERNA Administration Budesonide 0.5 mg 05/10/21 20:00 05/13/21 10:09 Budesonide 0.5 Mg/2 Ml Nebu IH Not Given Q12HRT PRERNA Bumetanide 2 mg 05/13/21 18:00 Bumetanide 1 Mg/4 Ml Inj IV BID@0600,1800 PRERNA Colchicine 0.6 mg 05/08/21 10:00 05/13/21 09:48 Colchicine 0.6 Mg Tab PO 0.6 mg DAILY PRERNA Administration Famotidine 20 mg 05/07/21 22:00 05/13/21 09:50 Famotidine 20 Mg Tab PO 20 mg BID PRERNA Administration Midodrine 10 mg 05/12/21 12:00 05/13/21 14:14 Midodrine 5 Mg Tab PO 10 mg TID@0800,1200,1600 PRERNA Administration Ondansetron HCl 4 mg 05/07/21 20:25 05/10/21 09:18 Ondansetron 4 Mg/2 Ml Inj IV 4 mg Q8H PRN Administration Nausea And Vomiting Sodium Chloride 10 ml 05/07/21 22:00 05/13/21 09:50 Sodium Chloride 0.9% 10 Ml Flush Syringe IV 10 ml BID PRERNA Administration Sodium Chloride 10 ml 05/07/21 20:25 Sodium Chloride 0.9% 10 Ml Flush Syringe IV PRN PRN LINE FLUSH Nutrition/Malnutrition Assess - Dietary Evaluation Nutrition/Malnutrition Findings: Nutrition Notes Start: 05/08/21 12:01 Freq: Status: Active Protocol: Document 05/08/21 12:21 GB (Rec: 05/08/21 12:36 GB [id number]) Nutrition Notes Need for Assessment generated from: MD Order Initial or Follow up Assessment Current Diagnosis COPD,Heart Failure Current Diet Cardiac Labs/Tests 05/08: Na 132 low [id number], Ca 6.1 Low [id number] improving, Fe 22 low, AST 44 elevated [id number] improving, AlkP 248 elevated [id number] improving Pertinent Medications furosemide, KCl, NaCl, MgSulfate/KCl @131ml/hr Height 5 ft 3 in Weight 85.1 kg [place] Body Weight (kg) 56.36 BMI 33.2 Intake Prior to Admission Good Weight change and time frame No reported change in weight in H&P Weight Status Appropriate Subjective/Other Information Per admission, fluid retention r/t chronic heart complications. No reported change in PO intake, weight, strength, mobility, or compromised skin integrity Percent of energy/protein needs met: 75-100% with po intake of meals Burn Absent Trauma Absent GI Symptoms Diarrhea Food Allergy No Skin Integrity/Comment no reported complications Current % PO Good (75-100%) Minimum of two criteria No physical signs of malnutrition Protein-Calorie Malnutrition N\A #1 Nutrition Diagnosis Predicted suboptimal energy intake Comments: related to SOB Etiology related to fluid retention, chronic heart complications As Evidenced by Signs and Symptoms admit recommended from patients' primary for fluid retention/SOB Diagnosis Progress(for reassessment Continues documentation) Is patient on ventilator? No Is Patient Ambulatory and/or Out of Bed Yes REE-([place]-ambulatory/OOB) [ 2035.969 [id number]] Kcal/Kg value to use for calculation 20 Approximate Energy Requirements Using 1702 kcal/Kg Calculation Used for Recommendations Kcal/kg Additional Notes Energy needs met by po intake of meals. BMI is in the overweight to obesity I range fluctuating with relation to fluid retention. Nutritional supplement is not recommended. Nutrition Intervention Nutrition Support: Discontinue nutritional supplement beverage ensure BID . Goal #1 PO intake of meals to continue at 50% or greater daily Goal #2 Weight to maintain within overweight BMI range during LOS Anticipated Discharge Needs: Monitoring of high sodium containing foods (preprocessed and packaged) Follow-Up By: 05/15/[address] available for education if patient requests. - Attestation Statement I have reviewed and agreed w/ Malnutrition eval & tx plan: Yes
--- NOTE | 2021-05-13 17:31 | Progress Note ---
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 Patient appears to be back to baseline with regards to his breathing. Continue torsemide as needed. Renal function stable. Continue Eliquis for stroke prevention. Recommend ambulation to document oxygen levels and home oxygen as appropriate. Subjective Date of service: 05/13/21 Interval history: No complaints. No chest pain or shortness of breath. Currently on 2 L nasal cannula oxygen. Net -2 L thus far today. Telemetryreviewed, atrial fibrillation with controlled rate and intermittent ventricular pacing Objective Vital Signs Temp Pulse Pulse Resp BP BP Pulse Ox 05/13/21 15:55 98.2 F 62 20 111/29 92 05/13/21 10:00 80 18 98 05/13/21 08:11 97.5 F L 76 20 143/107 91 05/13/21 08:10 80 05/13/21 05:25 98.1 F 57 L 20 90/42 98 05/13/21 05:21 98.1 F 57 L 20 90/42 98 05/13/21 00:37 97.6 F 60 18 90/37 97 05/13/21 00:00 72 05/12/21 22:00 18 100 05/12/21 20:48 97.9 F 17 05/12/21 20:18 58 L 105/36 100 - Physical Examination Narrative exam: Gen-NAD, cooperative, seated edge of bed Neck-supple, no JVD CV-RRR, + systolic murmurs, midline sternal scar well healed Lungs-CTAB, on 2 L nasal cannula oxygen Abd-soft/nt/nd Ext-warm to touch, 1+ pitting edema on arms/legs Neuro-awake, alert, and oriented; no gross focal deficits Psych-affect appropriate Right chest ICD site is well-healed.
--- NOTE | 2021-05-13 19:51 | Progress Note ---
Assessment and Plan 10-year-old male with history of heart surgery at 6 months of age for tetralogy Fallot comes in for increasing shortness of breath and difficulty lying flat. His feet and ankles are not swollen. Patient has been retaining fluid and has worsening shortness of breath over the last 3 to 4 days. Patient follows with [facility] and his racing manager is Dr. Jackson. No fever or chills. No loss of taste. No exposure to coronavirus. Patient does not smoke. Patient is vaccinated. Patient was sent by [facility] for further evaluation and treatment. And for worsening of shortness of breath. Patient has history of Hypertension, CHF, Asthma. Patient has history of cardiac surgery, Surgery for tetralogy of fallot at age 8 and has CABG in 2013. Patient also has history of valve replacement. Patient has pacemaker and defibrillator implantation. Patient has no history of smoking, alcohol or drug abuse. 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 . Children 1. Allergic to Acetaminophen, Hydrocodone, Tramadol. Patient alert, awake. Patient resting in bed with 2 litres O2. O2 saturation 100%. Patients O2 saturation dropping even for slight exertion. Patient afebrile. No leukocytosis. Blood pressure 105/36. Pulse 59. Patient is on Midodrine. ABG on room air. ABG pH 7.512 (7.320-7.450) H 05/12/21 12:05 POC ABG pCO2 42.2 mmHg (32.0-48.0) 05/12/21 12:05 POC ABG pO2 41.7 mmHg (83-108) L 05/12/21 12:05 POC ABG HCO3 33.1 05/12/21 12:05 ABG O2 Saturation 77.8 (0-100) 05/12/21 12:05 Patient is a candidate for home O2. Recommend Home O2 3 litres via nasal canula. Chest xray done 05/07/21 reported Sternotomy and moderate cardiomegaly. No sig nificant pulmonary or pleural abnormality. No pneumothorax. Patient presently on Apixaban, Famotidine, albuterol inhaler, Brovanna/Budesonide aerosol treatments. I spent critical care time of 35 minutes, review the chart, examine the patient, review chest xray and Lab results and talking to the nursing staff and respiratory therapy and work out plan of tratment in this critically ill hypoxic patient with multiple medical problems. - Patient Problems (1) Acute respiratory failure with hypoxia Current Visit: Yes Status: Acute Plan to address problem: O2 3 litres via nasal canula. Brovanna/Budesonide aerosol treatments q 12 hours. Albuterol inhaler 2 puffs q 6 hours prn for shortness of breath. Continue Apixaban. Continue famoidine. (2) Acute exacerbation of congestive heart failure Current Visit: Yes Status: Acute Qualifiers: Heart failure type: combined systolic and diastolic Qualified Code(s): I50.43 - Acute on chronic combined systolic (congestive) and diastolic (congestive) heart failure Plan to address problem: Management as per cardiology (3) Chronic atrial fibrillation Current Visit: Yes Status: Acute Plan to address problem: Patient is on Apixaban. Management as per cardiology. (4) Asthma Current Visit: No Status: Acute Plan to address problem: O2 3 litres via nasal canula. Brovanna/Budesonide aerosol treatments q 12 hours. Albuterol inhaler 2 puffs q 6 hours prn for shortness of breath. Continue Apixaban. Continue famoidine. PFTs as out patient (5) Pulmonary hypertension Current Visit: No Status: Acute Plan to address problem: Likely secondary to cardiac and pulmonary problems. Recommend O2 2 litres via nasal canula. Treatment of cardiac and pulmonary problems. (6) Tetralogy of Fallot s/p repair Current Visit: No Status: Acute Plan to address problem: Follow up as per cardiology. Subjective Date of service: 05/13/21 Interval history: 60-year-old male with history of heart surgery at 6 months of age for tetralogy Fallot comes in for increasing shortness of breath and difficulty lying flat. His feet and ankles are not swollen. Patient has been retaining fluid and has worsening shortness of breath over the last 3 to 4 days. Patient follows with [facility] and his racing manager is Dr. Jackson. No fever or chi lls. No loss of taste. No exposure to coronavirus. Patient does not smoke. Patient is vaccinated. Patient was sent by [facility] for further evaluation and treatment. And for worsening of shortness of breath. Patient has history of Hypertension, CHF, Asthma. Patient has history of cardiac surgery, Surgery for tetralogy of fallot at age 8 and has CABG in 2013. Patient also has history of valve replacement. Patient has pacemaker and defibrillator implantation. Patient has no history of smoking, alcohol or drug abuse. 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 . Children 1. Allergic to Acetaminophen, Hydrocodone, Tramadol. Patient alert, awake. Patient resting in bed with 2 litres O2. O2 saturation 100%. Patients O2 saturation dropping even for slight exertion. Patient afebrile. No leukocytosis. Blood pressure 105/36. Pulse 59. Patient is on Midodrine ABG on room air. ABG pH 7.512 (7.320-7.450) H 05/12/21 12:05 POC ABG pCO2 42.2 mmHg (32.0-48.0) 05/12/21 12:05 POC ABG pO2 41.7 mmHg (83-108) L 05/12/21 12:05 POC ABG HCO3 33.1 05/12/21 12:05 ABG O2 Saturation 77.8 (0-100) 05/12/21 12:05 Patient is a candidate for home O2. Recommend Home O2 3 litres via nasal canula. Chest xray done 05/07/21 reported Sternotomy and moderate cardiomegaly. No significant pulmonary or pleural abnormality. No pneumothorax. Patient presently on Apixaban, Famotidine, albuterol inhaler, Brovanna/Budesonide aerosol treatments. Objective Vital Signs - 12hr 05/13/21 05/13/21 05/13/21 08:10 08:11 10:00 Temperature 97.5 F L Pulse Rate 80 76 Pulse Rate [ 80 From Monitor] Respiratory 20 18 Rate Blood Pressure 143/107 O2 Sat by Pulse 91 98 Oximetry 05/13/21 15:55 Temperature 98.2 F Pulse Rate 62 Pulse Rate [ From Monitor] Respiratory 20 Rate Blood Pressure 111/29 O2 Sat by Pulse 92 Oximetry Constitutional: no acute distress, alert, other (Mild shortness of breath at rest.) Eyes: non-icteric ENT: oropharynx moist Neck: supple, no lymphadenopathy Effort: mildly labored Ascultation: Bilateral: diminished breath sounds, other (Prolonged expiratory phase.) Cardiovascular: irregular rhythm, murmur noted Gastrointestinal: normoactive bowel sounds, soft, non-tender Integumentary: normal Extremities: no cyanosis, no edema Neurologic: normal mental status, non-focal exam, pupils equal and round Psychiatric: mood appropriate, affect normal CBC and BMP: 05/11/21 05:54 05/12/21 05:23 ABG, PT/INR, D-dimer: ABG ABG pH 7.512 (7.320-7.450) H 05/12/21 12:05 POC ABG pCO2 42.2 mmHg (32.0-48.0) 05/12/21 12:05 POC ABG pO2 41.7 mmHg (83-108) L 05/12/21 12:05 POC ABG HCO3 33.1 05/12/21 12:05 ABG O2 Saturation 77.8 (0-100) 05/12/21 12:05 Abnormal lab findings: Abnormal Labs 05/07/21 05/07/21 05/07/21 17:30 17:30 17:30 RBC Hgb 9.2 L Hct 28.4 L MCV 72 L MCH 23 L MCHC RDW 19.6 H Lymph % (Auto) 5.0 L [place] % (Auto) 15.2 H Lymph # (Auto) 0.3 L [place] # (Auto) 1.0 H Seg Neutrophils % 76.8 H Seg Neuts % (Manual) Lymphocytes % (Manual) Eosinophils % (Manual) Lymphocytes # (Manual) ABG pH POC ABG pO2 ABG Hemoglobin ABG Oxyhemoglobin ABG Sodium ABG Potassium ABG Chloride ABG Glucose Sodium 134 L Potassium 2.7 L* Chloride 92.3 L Creatinine Glucose Calcium 6.0 L Magnesium 1.00 L Iron AST 47 H Alkaline Phosphatase 276 H NT-Pro-B Natriuret Pep 2308 H Total Protein 4.4 L Albumin 2.2 L Arterial Blood Glucose 05/08/21 05/08/21 05/08/21 05:43 05:43 05:43 RBC Hgb 8.8 L Hct 28.2 L MCV 72 L MCH 22 L MCHC 31 L RDW 19.7 H Lymph % (Auto) [place] % (Auto) Lymph # (Auto) [place] # (Auto) Seg Neutrophils % Seg Neuts % (Manual) 85.0 H Lymphocytes % (Manual) 4.0 L Eosinophils % (Manual) 6.0 H Lymphocytes # (Manual) 0.2 L ABG pH POC ABG pO2 ABG Hemoglobin ABG Oxyhemoglobin ABG Sodium ABG Potassium ABG Chloride ABG Glucose Sodium 132 L Potassium Chloride 95.1 L Creatinine Glucose Calcium 6.1 L Magnesium Iron 22 L AST 44 H Alkaline Phosphatase 248 H NT-Pro-B Natriuret Pep Total Protein 4.4 L Albumin 2.0 L Arterial Blood Glucose 05/09/21 05/09/21 05/10/21 05:27 05:27 05:47 RBC Hgb 8.4 L 8.7 L Hct 27.0 L 26.7 L MCV 72 L 72 L MCH 23 L 23 L MCHC 31 L RDW 19.6 H 20.4 H Lymph % (Auto) 3.8 L 5.3 L [place] % (Auto) 13.3 H 12.7 H Lymph # (Auto) 0.3 L 0.3 L [place] # (Auto) 1.0 H Seg Neutrophils % 79.6 H 76.5 H Seg Neuts % (Manual) Lymphocytes % (Manual) Eosinophils % (Manual) Lymphocytes # (Manual) ABG pH POC ABG pO2 ABG Hemoglobin ABG Oxyhemoglobin ABG Sodium ABG Potassium ABG Chloride ABG Glucose Sodium 133 L Potassium Chloride 97.1 L Creatinine Glucose 102 H Calcium 6.7 L Magnesium 1.40 L Iron AST Alkaline Phosphatase NT-Pro-B Natriuret Pep Total Protein Albumin Arterial Blood Glucose 05/10/21 05/11/21 05/11/21 05:47 05:54 05:54 RBC 3.37 L Hgb 7.8 L Hct 24.1 L MCV 72 L MCH 23 L MCHC RDW 19.6 H Lymph % (Auto) 3.0 L [place] % (Auto) 12.4 H Lymph # (Auto) 0.2 L [place] # (Auto) 0.9 H Seg Neutrophils % 82.1 H Seg Neuts % (Manual) Lymphocytes % (Manual) Eosinophils % (Manual) Lymphocytes # (Manual) ABG pH POC ABG pO2 ABG Hemoglobin ABG Oxyhemoglobin ABG Sodium ABG Potassium ABG Chloride ABG Glucose Sodium 129 L 130 L Potassium Chloride 96.4 L 93.0 L Creatinine 0.7 L Glucose Calcium 7.1 L 7.1 L Magnesium 1.50 L 1.50 L Iron AST Alkaline Phosphatase NT-Pro-B Natriuret Pep Total Protein Albumin Arterial Blood Glucose 05/12/21 05/12/21 05:23 12:05 RBC Hgb Hct MCV MCH MCHC RDW Lymph % (Auto) [place] % (Auto) Lymph # (Auto) [place] # (Auto) Seg Neutrophils % Seg Neuts % (Manual) Lymphocytes % (Manual) Eosinophils % (Manual) Lymphocytes # (Manual) ABG pH 7.512 H POC ABG pO2 41.7 L ABG Hemoglobin 8.5 L ABG Oxyhemoglobin 76.8 L ABG Sodium 127.8 L ABG Potassium 3.0 L ABG Chloride 93.0 L ABG Glucose 104 H Sodium 134 L Potassium 3.4 L Chloride 95.0 L Creatinine 0.7 L Glucose Calcium 7.2 L Magnesium Iron AST Alkaline Phosphatase NT-Pro-B Natriuret Pep Total Protein Albumin Arterial Blood Glucose 104 H
[2021-05-13] MEDS: HYDROcodone/ACETAMINOPHEN 5-325 MG TAB PO PRN (21:43)
[2021-05-14] MEDS: BUMETANIDE 1 MG/4 ML INJ IV SCH ×3 (05:22→18:00)
[2021-05-14 06:37] LABS: BUN/Creatinine Ratio 20; Blood Urea Nitrogen 16 mg/dL (9-20); Calcium 7.4 mg/dL (8.4-10.2); Hemolysis Index 6
[2021-05-14] MEDS: ARFORMOTEROL 15 MCG/2 ML NEBU IH SCH ×2 (07:58→20:52)
[2021-05-14] MEDS: BUDESONIDE 0.5 MG/2 ML NEBU IH SCH ×2 (07:58→20:51)
[2021-05-14] MEDS ORDERED: CALCIUM GLUCONATE 1,000 MG in SODIUM CHLORIDE 0.9% 100 ML IV NR (09:00)
[2021-05-14] MEDS: MIDODRINE 5 MG TAB PO SCH ×3 (10:00→16:43)
[2021-05-14] MEDS ORDERED: POTASSIUM CHLORIDE ER 20 MEQ TAB PO SCH (10:00)
[2021-05-14] MEDS: ALPRAZolam 1 MG TAB PO SCH ×2 (12:29→22:18)
--- NOTE | 2021-05-14 12:29 | Progress Note ---
Assessment and Plan - Patient Problems (1) Edema Current Visit: Yes Status: Acute Plan to address problem: Edema due to cor pulmonale and right heart failure, continue medical therapy including optimal diuretic therapy. (2) Right-sided heart failure Current Visit: Yes Status: Acute Plan to address problem: Continue optimal diuretic therapy. (3) Chronic atrial fibrillation Current Visit: Yes Status: Acute Plan to address problem: Rate control strategy and chronic oral anticoagulation. Subjective Date of service: 05/14/21 Interval history: Patient is comfortable, looks and feels better, his lower extremity edema has shown marked resolution on intravenous dobutamine. No new cardiac complaints. Objective Vital Signs Temp Pulse Pulse Resp Resp BP Pulse Ox 05/14/21 08:05 98.5 F 50 L 20 111/38 99 05/14/21 07:58 62 18 98 05/14/21 03:55 97.7 F 61 20 114/38 98 05/14/21 00:00 62 05/13/21 23:34 98.6 F 60 16 90/30 98 05/13/21 22:00 98 05/13/21 20:41 100 05/13/21 20:40 62 20 05/13/21 19:42 97.9 F 59 L 19 105/36 97 05/13/21 15:55 98.2 F 62 20 111/29 92 - Physical Examination General: No Apparent Distress HEENT: Positive: PERRL Neck: Positive: neck supple Cardiac: Positive: irregularly irregular Lungs: Positive: Decreased Breath Sounds Neuro: Positive: Grossly Intact Abdomen: Positive: Soft Skin: Positive: Clear Extremities: Present: +1 Edema - Labs and Meds Comprehensive Metabolic Panel 05/14/21 Range/Units 05:43 Sodium 134 L (137-145) mmol/L Potassium 3.1 L (3.6-5.0) mmol/L Chloride 93.3 L (98-107) mmol/L Carbon Dioxide 35 H (22-30) mmol/L BUN 16 (9-20) mg/dL Creatinine 0.8 (0.8-1.3) mg/dL Glucose 92 (75-100) mg/dL Calcium 7.4 L (8.4-10.2) mg/dL
[2021-05-14] MEDS: APIXABAN 5 MG TAB PO SCH ×2 (12:31→22:18)
[2021-05-14] MEDS: ASPIRIN 81 MG TAB CHEW PO SCH (12:34)
[2021-05-14] MEDS: FAMOTIDINE 20 MG TAB PO SCH ×2 (12:37→22:22)
--- NOTE | 2021-05-14 12:40 | Progress Note ---
Assessment and Plan Assessment and plan: #Acute on systolic right heart failure-resolved #Pulmonary hypertension #Volume overload-improved - Continue CHF exacerbation protocol: Strict I/O, monitor urine output every shift, daily weights, afterload reduction, low-sodium diet, and fluid restriction of approximately 1.5 mL/day - Supplemental oxygen: 2 L - Cardiology consulted; appreciate recs. Discontinue dobutamine 5 mg/KG in the setting of right heart failure per cardiology - TTE (05/08/2021) pending - Holding antihypertensives due to concern for low blood pressures; continue midodrine 10 mg 3 times daily to sustain blood pressures -Continue IV Bumex 2 mg twice daily -Continued volume overload; however, patient continues to consume more liquids than allowed per daily fluid restriction. Patient counseled on decreasing fluids. -Pulmonology consulted; appreciate #Acute hypoxic respiratory failure-resolved #COPD -Currently on 2 L nasal cannula (baseline of 2 L at home) -Patient endorses no longer having home oxygen due to social issues with brother -Order placed for home oxygen upon discharge; ready upon discharge -No concern for COPD exacerbation given lack of fever, increased sputum, or sign of possible infection -Continue nebulizer treatment #Atrial fibrillation -Continue with Eliquis #Anemia -Hemoglobin 8.8 -Likely anemia of chronic disease; continue to monitor #Hypomagnesemia-resolved -Repleted and will continue to monitor #Hypokalemia -Repleted and will continue to monitor #Hypocalcemia -Calcium 7.4; repleted. We will continue to monitor #Chronic malnutrition -Nutrition consulted; appreciate recs #Anxiety -Continue home Xanax (home dose 5mg BID) at 2mg BID - will continue to monitor #Social concerns -Patient endorses being homeless due to Covid complications -Social work notified letter working on possible placement Disposition Plan: Continue medical med Total Time Spent with Patient (Minutes): 40 History Interval history: No acute events overnight Hospitalist Physical - Constitutional Vitals: Temp Pulse Resp BP Pulse Ox 98.5 F 50 L 20 111/38 99 05/14/21 08:05 05/14/21 08:05 05/14/21 08:05 05/14/21 08:05 05/14/21 08:05 General appearance: Present: mild distress - EENT Eyes: Present: PERRL, EOM intact ENT: hearing intact, clear oral mucosa, edentulous - Neck Neck: Present: supple, normal ROM - Respiratory Respiratory effort: normal Respiratory: bilateral: diminished (Bibasilar), negative: CTA, rales, rhonchi, wheezing - Cardiovascular Rhythm: regular Heart Sounds: Present: S1 & S2 - Extremities Extremities: no ischemia, pulses intact, pulses symmetrical, normal temperature, normal color Extremity abnormal: edema (1+ pitting edema to bilateral lower thighs and involving abdomen) Peripheral Pulses: within normal limits - Abdominal General gastrointestinal: soft, non-tender, non-distended, normal bowel sounds - Integumentary Integumentary: Present: clear, warm, dry - Psychiatric Psychiatric: appropriate mood/affect, intact judgment & insight, memory intact, cooperative - Neurologic Neurologic: CNII-XII intact, moves all extremities - Allied Health Allied health notes reviewed: nursing HEART Score - HEART Score EKG: Non-specific Age: 45-65 Risk factors: 1-2 risk factors Troponin: Troponin T < 0.010 ng/mL (0.00-0.029) 05/07/21 17:30 Troponin: < normal limit - Critical Actions Critical Actions: 4-6 pts:12-16.6% risk of adverse cardiac event. Should be admi tted Results - Labs CBC & Chem 7: 05/11/21 05:54 05/14/21 05:43 Labs: Laboratory Last Values WBC 7.4 K/mm3 (4.5-11.0) 05/11/21 05:54 RBC 3.37 M/mm3 (3.65-5.03) L 05/11/21 05:54 Hgb 7.8 gm/dl (11.8-15.2) L 05/11/21 05:54 Hct 24.1 % (35.5-45.6) L 05/11/21 05:54 MCV 72 fl (84-94) L 05/11/21 05:54 MCH 23 pg (28-32) L 05/11/21 05:54 MCHC 32 % (32-34) 05/11/21 05:54 RDW 19.6 % (13.2-15.2) H 05/11/21 05:54 Plt Count 260 K/mm3 (140-440) 05/11/21 05:54 Lymph % (Auto) 3.0 % (13.4-35.0) L 05/11/21 05:54 [place] % (Auto) 12.4 % (0.0-7.3) H 05/11/21 05:54 Eos % (Auto) 1.5 % (0.0-4.3) 05/11/21 05:54 Baso % (Auto) 1.0 % (0.0-1.8) 05/11/21 05:54 Lymph # (Auto) 0.2 K/mm3 (1.2-5.4) L 05/11/21 05:54 [place] # (Auto) 0.9 K/mm3 (0.0-0.8) H 05/11/21 05:54 Eos # (Auto) 0.1 K/mm3 (0.0-0.4) 05/11/21 05:54 Baso # (Auto) 0.1 K/mm3 (0.0-0.1) 05/11/21 05:54 Add Manual Diff Complete 05/08/21 05:43 Total Counted 100 05/08/21 05:43 Seg Neutrophils % 82.1 % (40.0-70.0) H 05/11/21 05:54 Seg Neuts % (Manual) 85.0 % (40.0-70.0) H 05/08/21 05:43 Lymphocytes % (Manual) 4.0 % (13.4-35.0) L 05/08/21 05:43 Monocytes % (Manual) 5.0 % (0.0-7.3) 05/08/21 05:43 Eosinophils % (Manual) 6.0 % (0.0-4.3) H 05/08/21 05:43 Nucleated RBC % Not Reportable 05/08/21 05:43 Seg Neutrophils # 6.0 K/mm3 (1.8-7.7) 05/11/21 05:54 Seg Neutrophils # Man 4.9 K/mm3 (1.8-7.7) 05/08/21 05:43 Band Neutrophils # 0.0 K/mm3 05/08/21 05:43 Lymphocytes # (Manual) 0.2 K/mm3 (1.2-5.4) L 05/08/21 05:43 Abs React Lymphs (Man) 0.0 K/mm3 05/08/21 05:43 Monocytes # (Manual) 0.3 K/mm3 (0.0-0.8) 05/08/21 05:43 Eosinophils # (Manual) 0.3 K/mm3 (0.0-0.4) 05/08/21 05:43 Basophils # (Manual) 0.0 K/mm3 (0.0-0.1) 05/08/21 05:43 Metamyelocytes # 0.0 K/mm3 05/08/21 05:43 Myelocytes # 0.0 K/mm3 05/08/21 05:43 Promyelocytes # 0.0 K/mm3 05/08/21 05:43 Blast Cells # 0.0 K/mm3 05/08/21 05:43 WBC Morphology Not Reportable 05/08/21 05:43 Hypersegmented Neuts Not Reportable 05/08/21 05:43 Hyposegmented Neuts Not Reportable 05/08/21 05:43 Hypogranular Neuts Not Reportable 05/08/21 05:43 Smudge Cells Not Reportable 05/08/21 05:43 Toxic Granulation Not Reportable 05/08/21 05:43 Toxic Vacuolation Not Reportable 05/08/21 05:43 Dohle Bodies Not Reportable 05/08/21 05:43 Pelger-Huet Anomaly Not Reportable 05/08/21 05:43 Terrence Rods Not Reportable 05/08/21 05:43 Platelet Estimate Consistent w auto 05/08/21 05:43 Clumped Platelets Not Reportable 05/08/21 05:43 Plt Clumps, EDTA Not Reportable 05/08/21 05:43 Large Platelets Not Reportable 05/08/21 05:43 Giant Platelets Rare 05/08/21 05:43 Platelet Satelliting Not Reportable 05/08/21 05:43 Plt Morphology Comment Not Reportable 05/08/21 05:43 RBC Morphology Not Reportable 05/08/21 05:43 Dimorphic RBCs Not Reportable 05/08/21 05:43 Polychromasia Not Reportable 05/08/21 05:43 Hypochromasia 1+ 05/08/21 05:43 Poikilocytosis 1+ 05/08/21 05:43 Anisocytosis Not Reportable 05/08/21 05:43 Microcytosis Not Reportable 05/08/21 05:43 Macrocytosis Not Reportable 05/08/21 05:43 Spherocytes Not Reportable 05/08/21 05:43 Pappenheimer Bodies Not Reportable 05/08/21 05:43 Sickle Cells Not Reportable 05/08/21 05:43 Target Cells Not Reportable 05/08/21 05:43 Tear Drop Cells Not Reportable 05/08/21 05:43 Ovalocytes Few 05/08/21 05:43 Helmet Cells Not Reportable 05/08/21 05:43 Jimenez-Crossett Bodies Not Reportable 05/08/21 05:43 [place] Rings Not Reportable 05/08/21 05:43 [place] Cells Not Reportable 05/08/21 05:43 Bite Cells Not Reportable 05/08/21 05:43 Crenated Cell Not Reportable 05/08/21 05:43 Elliptocytes Few 05/08/21 05:43 Acanthocytes (Spur) Not Reportable 05/08/21 05:43 Rouleaux Not Reportable 05/08/21 05:43 Hemoglobin C Crystals Not Reportable 05/08/21 05:43 Schistocytes Not Reportable 05/08/21 05:43 Malaria parasites Not Reportable 05/08/21 05:43 Justin Bodies Not Reportable 05/08/21 05:43 Hem Pathologist Commnt No 05/08/21 05:43 ABG pH 7.512 (7.320-7.450) H 05/12/21 12:05 POC ABG pCO2 42.2 mmHg (32.0-48.0) 05/12/21 12:05 POC ABG pO2 41.7 mmHg (83-108) L 05/12/21 12:05 POC ABG HCO3 33.1 05/12/21 12:05 ABG O2 Saturation 77.8 (0-100) 05/12/21 12:05 POC ABG Base Excess 9.2 05/12/21 12:05 ABG Hemoglobin 8.5 (12.0-17.5) L 05/12/21 12:05 ABG Oxyhemoglobin 76.8 (94-98) L 05/12/21 12:05 ABG Methemoglobin 0.3 (0.0-1.5) 05/12/21 12:05 ABG Sodium 127.8 mmol/L (136.0-145.0) L 05/12/21 12:05 ABG Potassium 3.0 mmol/L (3.40-4.50) L 05/12/21 12:05 ABG Chloride 93.0 mmol/L (98-107) L 05/12/21 12:05 ABG Glucose 104 mg/dL (65-95) H 05/12/21 12:05 Carboxyhemoglobin 1.0 (0.5-1.5) 05/12/21 12:05 FiO2 % 21.0 05/12/21 12:05 Sodium 134 mmol/L (137-145) L 05/14/21 05:43 Potassium 3.1 mmol/L (3.6-5.0) L 05/14/21 05:43 Chloride 93.3 mmol/L (98-107) L 05/14/21 05:43 Carbon Dioxide 35 mmol/L (22-30) H 05/14/21 05:43 Anion Gap 9 mmol/L 05/14/21 05:43 BUN 16 mg/dL (9-20) 05/14/21 05:43 Creatinine 0.8 mg/dL (0.8-1.3) 05/14/21 05:43 Estimated GFR > 60 ml/min 05/14/21 05:43 BUN/Creatinine Ratio 20 % 05/14/21 05:43 Glucose 92 mg/dL (75-100) 05/14/21 05:43 Calcium 7.4 mg/dL (8.4-10.2) L 05/14/21 05:43 Phosphorus 4.20 mg/dL (2.5-4.5) 05/14/21 05:43 Magnesium 1.70 mg/dL (1.7-2.3) 05/14/21 05:43 Iron 22 ug/dL (49-181) L 05/08/21 05:43 TIBC 255 mcg/dL (250-450) 05/08/21 05:43 % Saturation 8.63 % 05/08/21 05:43 Transferrin 230 mg/dl (180-329) 05/08/21 05:43 Total Bilirubin 0.50 mg/dL (0.1-1.2) 05/08/21 05:43 AST 44 units/L (5-40) H 05/08/21 05:43 ALT 40 units/L (7-56) 05/08/21 05:43 Alkaline Phosphatase 248 units/L (35-129) H 05/08/21 05:43 Troponin T < 0.010 ng/mL (0.00-0.029) 05/07/21 17:30 NT-Pro-B Natriuret Pep 2308 pg/mL (0-900) H 05/07/21 17:30 Total Protein 4.4 g/dL (6.3-8.2) L 05/08/21 05:43 Albumin 2.0 g/dL (3.9-5) L 05/08/21 05:43 Albumin/Globulin Ratio 0.8 % 05/08/21 05:43 Vitamin B12 257.7 pg/mL (211-911) 05/08/21 07:17 RBC Folic Acid >1000 ng/mL (>280) 05/08/21 05:43 Arterial Blood Glucose 104 mg/dL (65-95) H 05/12/21 12:05 Soto/IV: Voiding Method Urinal Active Medications - Current Medications Current Medications: Generic Name Dose Route Start Last Admin Trade Name Freq PRN Reason Stop Dose Admin Acetaminophen 650 mg 05/07/21 20:25 Acetaminophen 325 Mg Tab PO Q4H PRN Pain MILD(1-3)/Fever >100.5/ERAZO Hydrocodone Bitart/Acetaminophen 1 each 05/08/21 12:30 05/13/21 21:43 Hydrocodone/Acetaminophen 5-325 Mg Tab PO 1 each Q8H PRN Administration Pain, Moderate (4-6) Albuterol 2.5 mg 05/07/21 21:00 05/09/21 17:36 Albuterol 2.5 Mg/3 Ml Nebu IH 2.5 mg QID PRN Administration Shortness Of Breath Alprazolam 2 mg 05/09/21 22:00 05/14/21 12:29 Alprazolam 1 Mg Tab PO 2 mg BID PRERNA Administration Apixaban 5 mg 05/07/21 22:00 05/14/21 12:31 Apixaban 5 Mg Tab PO 5 mg BID PRERNA Administration Arformoterol Tartrate 15 mcg 05/10/21 20:00 05/14/21 07:58 Arformoterol 15 Mcg/2 Ml Nebu IH 15 mcg Q12HRT PRERNA Administration Aspirin 81 mg 05/08/21 10:00 05/14/21 12:34 Aspirin 81 Mg Tab Chew PO 81 mg QDAY PRERNA Administration Atorvastatin Calcium 40 mg 05/07/21 22:00 05/13/21 21:43 Atorvastatin 20 Mg Tab PO 40 mg QHS PRERNA Administration Budesonide 0.5 mg 05/10/21 20:00 05/14/21 07:58 Budesonide 0.5 Mg/2 Ml Nebu IH 0.5 mg Q12HRT PRERNA Administration Bumetanide 2 mg 05/13/21 18:00 05/14/21 05:29 Bumetanide 1 Mg/4 Ml Inj IV 2 mg BID@0600,1800 PRERNA Administration Colchicine 0.6 mg 05/08/21 10:00 05/13/21 09:48 Colchicine 0.6 Mg Tab PO 0.6 mg DAILY PRERNA Administration Famotidine 20 mg 05/07/21 22:00 05/13/21 21:44 Famotidine 20 Mg Tab PO 20 mg BID PRERNA Administration Midodrine 10 mg 05/12/21 12:00 05/14/21 12:32 Midodrine 5 Mg Tab PO Not Given TID@0800,1200,1600 [facility] Ondansetron HCl 4 mg 05/07/21 20:25 05/10/21 09:18 Ondansetron 4 Mg/2 Ml Inj IV 4 mg Q8H PRN Administration Nausea And Vomiting Potassium Chloride 40 meq 05/14/21 10:00 05/14/21 12:33 Potassium Chloride Er 20 Meq Tab PO 05/14/21 15:00 40 meq BID PRERNA Administration Sodium Chloride 10 ml 05/07/21 22:00 05/13/21 21:44 Sodium Chloride 0.9% 10 Ml Flush Syringe IV 10 ml BID PRERNA Administration Sodium Chloride 10 ml 05/07/21 20:25 Sodium Chloride 0.9% 10 Ml Flush Syringe IV PRN PRN LINE FLUSH Nutrition/Malnutrition Assess - Dietary Evaluation Nutrition/Malnutrition Findings: Nutrition Notes Start: 05/08/21 12:01 Freq: Status: Active Protocol: Document 05/08/21 12:21 GB (Rec: 05/08/21 12:36 GB [id number]) Nutrition Notes Need for Assessment generated from: MD Order Initial or Follow up Assessment Current Diagnosis COPD,Heart Failure Current Diet Cardiac Labs/Tests 05/08: Na 132 low [id number], Ca 6.1 Low [id number] improving, Fe 22 low, AST 44 elevated [id number] improving, AlkP 248 elevated [id number] improving Pertinent Medications furosemide, KCl, NaCl, MgSulfate/KCl @131ml/hr Height 5 ft 3 in Weight 85.1 kg [place] Body Weight (kg) 56.36 BMI 33.2 Intake Prior to Admission Good Weight change and time frame No reported change in weight in H&P Weight Status Appropriate Subjective/Other Information Per admission, fluid retention r/t chronic heart complications. No reported change in PO intake, weight, strength, mobility, or compromised skin integrity Percent of energy/protein needs met: 75-100% with po intake of meals Burn Absent Trauma Absent GI Symptoms Diarrhea Food Allergy No Skin Integrity/Comment no reported complications Current % PO Good (75-100%) Minimum of two criteria No physical signs of malnutrition Protein-Calorie Malnutrition N\A #1 Nutrition Diagnosis Predicted suboptimal energy intake Comments: related to SOB Etiology related to fluid retention, chronic heart complications As Evidenced by Signs and Symptoms admit recommended from patients' primary for fluid retention/SOB Diagnosis Progress(for reassessment Continues documentation) Is patient on ventilator? No Is Patient Ambulatory and/or Out of Bed Yes REE-([facility]-ambulatory/OOB) [ 96 NUTR.[id number]] Kcal/Kg value to use for calculation 20 Approximate Energy Requirements Using 1702 kcal/Kg Calculation Used for Recommendations Kcal/kg Additional Notes Energy needs met by po intake of meals. BMI is in the overweight to obesity I range fluctuating with relation to fluid retention. Nutritional supplement is not recommended. Nutrition Intervention Nutrition Support: Discontinue nutritional supplement beverage ensure BID . Goal #1 PO intake of meals to continue at 50% or greater daily Goal #2 Weight to maintain within overweight BMI range during LOS Anticipated Discharge Needs: Monitoring of high sodium containing foods (preprocessed and packaged) Follow-Up By: 05/15/[address] available for education if patient requests. - Attestation Statement I have reviewed and agreed w/ Malnutrition eval & tx plan: Yes
[2021-05-14] MEDS: COLCHICINE 0.6 MG TAB PO SCH (12:42)
--- NOTE | 2021-05-14 14:01 | Progress Note ---
Assessment and Plan 10-year-old male with history of heart surgery at 6 months of age for tetralogy Fallot comes in for increasing shortness of breath and difficulty lying flat. His feet and ankles are not swollen. Patient has been retaining fluid and has worsening shortness of breath over the last 3 to 4 days. Patient follows with [facility] and his laboratory mechanic helper is Dr. Jackson. No fever or chills. No loss of taste. No exposure to coronavirus. Patient does not smoke. Patient is vaccinated. Patient was sent by [facility] for further evaluation and treatment. And for worsening of shortness of breath. Patient has history of Hypertension, CHF, Asthma. Patient has history of cardiac surgery, Surgery for tetralogy of fallot at age 8 and has CABG in 2013. Patient also has history of valve replacement. Patient has pacemaker and defibrillator implantation. Patient has no history of smoking, alcohol or drug abuse. 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 . Children 1. Allergic to Acetaminophen, Hydrocodone, Tramadol. Patient alert, awake. Patient resting in bed with 2 litres O2. O2 saturation 100%. Patients O2 saturation dropping even for slight exertion. Patient afebrile. No leukocytosis. Blood pressure 105/36. Pulse 59. Patient is on Midodrine. ABG on room air. ABG pH 7.512 (7.320-7.450) H 05/12/21 12:05 POC ABG pCO2 42.2 mmHg (32.0-48.0) 05/12/21 12:05 POC ABG pO2 41.7 mmHg (83-108) L 05/12/21 12:05 POC ABG HCO3 33.1 05/12/21 12:05 ABG O2 Saturation 77.8 (0-100) 05/12/21 12:05 Patient is a candidate for home O2. Recommend Home O2 3 litres via nasal canula. Chest xray done 05/07/21 reported Sternotomy and moderate cardiomegaly. No sig nificant pulmonary or pleural abnormality. No pneumothorax. Patient presently on Apixaban, Famotidine, albuterol inhaler, Brovanna/Budesonide aerosol treatments. I spent critical care time of 35 minutes, review the chart, examine the patient, review chest xray and Lab results and talking to the nursing staff and respiratory therapy and work out plan of tratment in this critically ill hypoxic patient with multiple medical problems. - Patient Problems (1) Acute respiratory failure with hypoxia Current Visit: Yes Status: Acute Plan to address problem: O2 3 litres via nasal canula. Brovanna/Budesonide aerosol treatments q 12 hours. Albuterol inhaler 2 puffs q 6 hours prn for shortness of breath. Continue Apixaban. Continue famoidine. (2) Acute exacerbation of congestive heart failure Current Visit: Yes Status: Acute Qualifiers: Heart failure type: combined systolic and diastolic Qualified Code(s): I50.43 - Acute on chronic combined systolic (congestive) and diastolic (congestive) heart failure Plan to address problem: Management as per cardiology (3) Chronic atrial fibrillation Current Visit: Yes Status: Acute Plan to address problem: Patient is on Apixaban. Management as per cardiology. (4) Asthma Current Visit: No Status: Acute Plan to address problem: O2 3 litres via nasal canula. Brovanna/Budesonide aerosol treatments q 12 hours. Albuterol inhaler 2 puffs q 6 hours prn for shortness of breath. Continue Apixaban. Continue famoidine. PFTs as out patient (5) Pulmonary hypertension Current Visit: No Status: Acute Plan to address problem: Likely secondary to cardiac and pulmonary problems. Recommend O2 2 litres via nasal canula. Treatment of cardiac and pulmonary problems. (6) Tetralogy of Fallot s/p repair Current Visit: No Status: Acute Plan to address problem: Follow up as per cardiology. Subjective Date of service: 05/14/21 Interval history: 60-year-old male with history of heart surgery at 6 months of age for tetralogy Fallot comes in for increasing shortness of breath and difficulty lying flat. His feet and ankles are not swollen. Patient has been retaining fluid and has worsening shortness of breath over the last 3 to 4 days. Patient follows with [facility] and his laboratory mechanic helper is Dr. Jackson. No fever or chi lls. No loss of taste. No exposure to coronavirus. Patient does not smoke. Patient is vaccinated. Patient was sent by [facility] for further evaluation and treatment. And for worsening of shortness of breath. Patient has history of Hypertension, CHF, Asthma. Patient has history of cardiac surgery, Surgery for tetralogy of fallot at age 8 and has CABG in 2013. Patient also has history of valve replacement. Patient has pacemaker and defibrillator implantation. Patient has no history of smoking, alcohol or drug abuse. 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 . Children 1. Allergic to Acetaminophen, Hydrocodone, Tramadol. Patient alert, awake. on 2 litres O2. O2 saturation 98%. Patients O2 saturation dropping even for slight exertion. Patient afebrile. No leukocytosis. Blood pressure 111/38. Pulse 50. Patient is on Midodrine ABG on room air. ABG pH 7.512 (7.320-7.450) H 05/12/21 12:05 POC ABG pCO2 42.2 mmHg (32.0-48.0) 05/12/21 12:05 POC ABG pO2 41.7 mmHg (83-108) L 05/12/21 12:05 POC ABG HCO3 33.1 05/12/21 12:05 ABG O2 Saturation 77.8 (0-100) 05/12/21 12:05 Patient is a candidate for home O2. Recommend Home O2 3 litres via nasal canula. Chest xray done 05/07/21 reported Sternotomy and moderate cardiomegaly. No significant pulmonary or pleural abnormality. No pneumothorax. Patient presently on Apixaban, Famotidine, albuterol inhaler, Brovanna/Budesonide aerosol treatments. Objective Vital Signs - 12hr 05/14/21 05/14/21 05/14/21 03:55 07:58 08:05 Temperature 97.7 F 98.5 F Pulse Rate 61 50 L Pulse Rate [ 62 Bilateral] Respiratory 20 20 Rate Respiratory 18 Rate [Bilateral ] Blood Pressure 114/38 111/38 O2 Sat by Pulse 98 98 99 Oximetry Constitutional: no acute distress, alert, other (Mild shortness of breath at rest.) Eyes: non-icteric ENT: oropharynx moist Neck: supple, no lymphadenopathy Effort: mildly labored Ascultation: Bilateral: diminished breath sounds, other (Prolonged expiratory phase.) Cardiovascular: irregular rhythm, murmur noted Gastrointestinal: normoactive bowel sounds, soft, non-tender Integumentary: normal Extremities: no cyanosis, no edema Neurologic: normal mental status, non-focal exam, pupils equal and round Psychiatric: mood appropriate, affect normal CBC and BMP: 05/11/21 05:54 05/14/21 05:43 ABG, PT/INR, D-dimer: ABG ABG pH 7.512 (7.320-7.450) H 05/12/21 12:05 POC ABG pCO2 42.2 mmHg (32.0-48.0) 05/12/21 12:05 POC ABG pO2 41.7 mmHg (83-108) L 05/12/21 12:05 POC ABG HCO3 33.1 05/12/21 12:05 ABG O2 Saturation 77.8 (0-100) 05/12/21 12:05 Abnormal lab findings: Abnormal Labs 05/07/21 05/07/21 05/07/21 17:30 17:30 17:30 RBC Hgb 9.2 L Hct 28.4 L MCV 72 L MCH 23 L MCHC RDW 19.6 H Lymph % (Auto) 5.0 L [place] % (Auto) 15.2 H Lymph # (Auto) 0.3 L [place] # (Auto) 1.0 H Seg Neutrophils % 76.8 H Seg Neuts % (Manual) Lymphocytes % (Manual) Eosinophils % (Manual) Lymphocytes # (Manual) ABG pH POC ABG pO2 ABG Hemoglobin ABG Oxyhemoglobin ABG Sodium ABG Potassium ABG Chloride ABG Glucose Sodium 134 L Potassium 2.7 L* Chloride 92.3 L Carbon Dioxide Creatinine Glucose Calcium 6.0 L Magnesium 1.00 L Iron AST 47 H Alkaline Phosphatase 276 H NT-Pro-B Natriuret Pep 2308 H Total Protein 4.4 L Albumin 2.2 L Arterial Blood Glucose 05/08/21 05/08/21 05/08/21 05:43 05:43 05:43 RBC Hgb 8.8 L Hct 28.2 L MCV 72 L MCH 22 L MCHC 31 L RDW 19.7 H Lymph % (Auto) [place] % (Auto) Lymph # (Auto) [place] # (Auto) Seg Neutrophils % Seg Neuts % (Manual) 85.0 H Lymphocytes % (Manual) 4.0 L Eosinophils % (Manual) 6.0 H Lymphocytes # (Manual) 0.2 L ABG pH POC ABG pO2 ABG Hemoglobin ABG Oxyhemoglobin ABG Sodium ABG Potassium ABG Chloride ABG Glucose Sodium 132 L Potassium Chloride 95.1 L Carbon Dioxide Creatinine Glucose Calcium 6.1 L Magnesium Iron 22 L AST 44 H Alkaline Phosphatase 248 H NT-Pro-B Natriuret Pep Total Protein 4.4 L Albumin 2.0 L Arterial Blood Glucose 05/09/21 05/09/21 05/10/21 05:27 05:27 05:47 RBC Hgb 8.4 L 8.7 L Hct 27.0 L 26.7 L MCV 72 L 72 L MCH 23 L 23 L MCHC 31 L RDW 19.6 H 20.4 H Lymph % (Auto) 3.8 L 5.3 L [place] % (Auto) 13.3 H 12.7 H Lymph # (Auto) 0.3 L 0.3 L [place] # (Auto) 1.0 H Seg Neutrophils % 79.6 H 76.5 H Seg Neuts % (Manual) Lymphocytes % (Manual) Eosinophils % (Manual) Lymphocytes # (Manual) ABG pH POC ABG pO2 ABG Hemoglobin ABG Oxyhemoglobin ABG Sodium ABG Potassium ABG Chloride ABG Glucose Sodium 133 L Potassium Chloride 97.1 L Carbon Dioxide Creatinine Glucose 102 H Calcium 6.7 L Magnesium 1.40 L Iron AST Alkaline Phosphatase NT-Pro-B Natriuret Pep Total Protein Albumin Arterial Blood Glucose 05/10/21 05/11/21 05/11/21 05:47 05:54 05:54 RBC 3.37 L Hgb 7.8 L Hct 24.1 L MCV 72 L MCH 23 L MCHC RDW 19.6 H Lymph % (Auto) 3.0 L [place] % (Auto) 12.4 H Lymph # (Auto) 0.2 L [place] # (Auto) 0.9 H Seg Neutrophils % 82.1 H Seg Neuts % (Manual) Lymphocytes % (Manual) Eosinophils % (Manual) Lymphocytes # (Manual) ABG pH POC ABG pO2 ABG Hemoglobin ABG Oxyhemoglobin ABG Sodium ABG Potassium ABG Chloride ABG Glucose Sodium 129 L 130 L Potassium Chloride 96.4 L 93.0 L Carbon Dioxide Creatinine 0.7 L Glucose Calcium 7.1 L 7.1 L Magnesium 1.50 L 1.50 L Iron AST Alkaline Phosphatase NT-Pro-B Natriuret Pep Total Protein Albumin Arterial Blood Glucose 05/12/21 05/12/21 05/14/21 05:23 12:05 05:43 RBC Hgb Hct MCV MCH MCHC RDW Lymph % (Auto) [place] % (Auto) Lymph # (Auto) [place] # (Auto) Seg Neutrophils % Seg Neuts % (Manual) Lymphocytes % (Manual) Eosinophils % (Manual) Lymphocytes # (Manual) ABG pH 7.512 H POC ABG pO2 41.7 L ABG Hemoglobin 8.5 L ABG Oxyhemoglobin 76.8 L ABG Sodium 127.8 L ABG Potassium 3.0 L ABG Chloride 93.0 L ABG Glucose 104 H Sodium 134 L 134 L Potassium 3.4 L 3.1 L Chloride 95.0 L 93.3 L Carbon Dioxide 35 H Creatinine 0.7 L Glucose Calcium 7.2 L 7.4 L Magnesium Iron AST Alkaline Phosphatase NT-Pro-B Natriuret Pep Total Protein Albumin Arterial Blood Glucose 104 H
[2021-05-15 05:25] LABS: Blood Urea Nitrogen 16 mg/dL (9-20); Calcium 7.8 mg/dL (8.4-10.2); Hemolysis Index 3
[2021-05-15 05:46] LABS: BUN/Creatinine Ratio 23
[2021-05-15] MEDS: BUMETANIDE 1 MG/4 ML INJ IV SCH ×3 (05:51→17:05)
[2021-05-15] MEDS ORDERED: POTASSIUM CHLORIDE ER 20 MEQ TAB PO NR (08:30)
--- NOTE | 2021-05-15 09:23 | Progress Note ---
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 Hx of VT and persistent atrial fibrillation on Eliquis for anticoagulation Hypotension on midodrine Presence of single chamber ICD ([employer]) Hx of COPD Tobacco abuse Echocardiogram this presentation shows evidence of severe cor pulmonale, with dilated right heart chambers and moderate severity pulmonary hypertension. The left ventricle is only mildly dilated with ejection fraction 40 to 45%. 2017 Echo severe dilated right heart chambers but ejection fraction 55-60%. 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 Medical therapy recommended. Recommend: Continue medical therapy including optimal diuretic therapy as tolerated. Subjective Date of service: 05/15/21 Interval history: Patient reports continued shortness of breath. Admits he is diuresing well. No distress noted. Objective Vital Signs Temp Pulse Pulse Resp Resp BP Pulse Ox 05/15/21 07:18 68 18 89/24 99 05/15/21 06:00 73 05/15/21 03:39 96 05/15/21 03:37 97.9 F 56 L 18 109/50 88 05/14/21 23:20 98.1 F 61 17 99/43 98 05/14/21 22:00 71 98 05/14/21 20:53 60 18 99 05/14/21 19:07 97.7 F 62 18 108/24 99 05/14/21 17:18 97.9 F 63 20 111/32 99 05/14/21 14:19 60 05/14/21 11:19 97.8 F 60 20 97/30 98 05/14/21 10:00 98 - Physical Examination General: No Apparent Distress HEENT: Positive: PERRL Neck: Positive: neck supple Cardiac: Positive: Other (ventricular pace) Lungs: Positive: Decreased Breath Sounds Neuro: Positive: Grossly Intact Abdomen: Positive: Soft - Labs and Meds Comprehensive Metabolic Panel 05/15/21 Range/Units 04:13 Sodium 135 L (137-145) mmol/L Potassium 3.4 L (3.6-5.0) mmol/L Chloride 94.5 L (98-107) mmol/L Carbon Dioxide 34 H (22-30) mmol/L BUN 16 (9-20) mg/dL Creatinine 0.7 L (0.8-1.3) mg/dL Glucose 95 (75-100) mg/dL Calcium 7.8 L (8.4-10.2) mg/dL
[2021-05-15] MEDS: ARFORMOTEROL 15 MCG/2 ML NEBU IH SCH ×2 (09:45→23:22)
[2021-05-15] MEDS: BUDESONIDE 0.5 MG/2 ML NEBU IH SCH ×2 (09:45→23:21)
--- NOTE | 2021-05-15 11:55 | Progress Note ---
Assessment and Plan 10-year-old male with history of heart surgery at 6 months of age for tetralogy Fallot comes in for increasing shortness of breath and difficulty lying flat. His feet and ankles are not swollen. Patient has been retaining fluid and has worsening shortness of breath over the last 3 to 4 days. Patient follows with [facility] and his clin nurse spec is Dr. Jackson. No fever or chills. No loss of taste. No exposure to coronavirus. Patient does not smoke. Patient is vaccinated. Patient was sent by [facility] for further evaluation and treatment. And for worsening of shortness of breath. Patient has history of Hypertension, CHF, Asthma. Patient has history of cardiac surgery, Surgery for tetralogy of fallot at age 8 and has CABG in 2013. Patient also has history of valve replacement. Patient has pacemaker and defibrillator implantation. Patient has no history of smoking, alcohol or drug abuse. 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 . Children 1. Allergic to Acetaminophen, Hydrocodone, Tramadol. Patient alert, awake. Patient resting in bed with 2 litres O2. O2 saturation 100%. Patients O2 saturation dropping even for slight exertion. Patient afebrile. No leukocytosis. Blood pressure 102/47. Pulse 61. Patient is on Midodrine. ABG on room air. ABG pH 7.512 (7.320-7.450) H 05/12/21 12:05 POC ABG pCO2 42.2 mmHg (32.0-48.0) 05/12/21 12:05 POC ABG pO2 41.7 mmHg (83-108) L 05/12/21 12:05 POC ABG HCO3 33.1 05/12/21 12:05 ABG O2 Saturation 77.8 (0-100) 05/12/21 12:05 Patient is a candidate for home O2. Recommend Home O2 3 litres via nasal canula. Chest xray done 05/07/21 reported Sternotomy and moderate cardiomegaly. No sig nificant pulmonary or pleural abnormality. No pneumothorax. Patient presently on Apixaban, Famotidine, albuterol inhaler, Brovanna/Budesonide aerosol treatments. I - Patient Problems (1) Acute respiratory failure with hypoxia Current Visit: Yes Status: Acute Plan to address problem: O2 3 litres via nasal canula. Brovanna/Budesonide aerosol treatments q 12 hours. Albuterol inhaler 2 puffs q 6 hours prn for shortness of breath. Continue Apixaban. Continue famoidine. (2) Acute exacerbation of congestive heart failure Current Visit: Yes Status: Acute Qualifiers: Heart failure type: combined systolic and diastolic Qualified Code(s): I50.43 - Acute on chronic combined systolic (congestive) and diastolic (congestive) heart failure Plan to address problem: Management as per cardiology (3) Chronic atrial fibrillation Current Visit: Yes Status: Acute Plan to address problem: Patient is on Apixaban. Management as per cardiology. (4) Asthma Current Visit: No Status: Acute Plan to address problem: O2 3 litres via nasal canula. Brovanna/Budesonide aerosol treatments q 12 hours. Albuterol inhaler 2 puffs q 6 hours prn for shortness of breath. Continue Apixaban. Continue famoidine. PFTs as out patient (5) Pulmonary hypertension Current Visit: No Status: Acute Plan to address problem: Likely secondary to cardiac and pulmonary problems. Recommend O2 3 litres via nasal canula. Treatment of cardiac and pulmonary problems. (6) Tetralogy of Fallot s/p repair Current Visit: No Status: Acute Plan to address problem: Follow up as per cardiology. Subjective Date of service: 05/15/21 Interval history: 60-year-old male with history of heart surgery at 6 months of age for tetralogy Fallot comes in for increasing shortness of breath and difficulty lying flat. His feet and ankles are not swollen. Patient has been retaining fluid and has worsening shortness of breath over the last 3 to 4 days. Patient follows with [facility] and his clin nurse spec is Dr. Jackson. No fever or chills. No loss of taste. No exposure to coronavirus. Patient does not smoke. Patient is vaccinated. Patient was sent by [facility] for further evaluation and treatment. And for worsening of shortness of breath. Patient has history of Hypertension, CHF, Asthma. Patient has history of cardiac surgery, Surgery for tetralogy of fallot at age 8 and has CABG in 2013. Patient also has history of valve replacement. Patient has pacemaker and defibrillator implantation. Patient has no history of smoking, alcohol or drug abuse. 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 . Children 1. Allergic to Acetaminophen, Hydrocodone, Tramadol. Patient alert, awake. on 2 litres O2. O2 saturation 98%. Patients O2 saturation dropping even for slight exertion. Patient afebrile. No leukocytosis. Blood pressure 102/47. Pulse 61. Patient is on Midodrine ABG on room air. ABG pH 7.512 (7.320-7.450) H 05/12/21 12:05 POC ABG pCO2 42.2 mmHg (32.0-48.0) 05/12/21 12:05 POC ABG pO2 41.7 mmHg (83-108) L 05/12/21 12:05 POC ABG HCO3 33.1 05/12/21 12:05 ABG O2 Saturation 77.8 (0-100) 05/12/21 12:05 Patient is a candidate for home O2. Recommend Home O2 3 litres via nasal canula. Chest xray done 05/07/21 reported Sternotomy and moderate cardiomegaly. No significant pulmonary or pleural abnormality. No pneumothorax. Patient presently on Apixaban, Famotidine, albuterol inhaler, Brovanna/Budesonide aerosol treatments. Objective Vital Signs - 12hr 05/15/21 05/15/21 05/15/21 03:37 03:39 06:00 Temperature 97.9 F Pulse Rate 56 L 73 Respiratory 18 Rate Blood Pressure 109/50 O2 Sat by Pulse 88 96 Oximetry 05/15/21 07:18 Temperature Pulse Rate 68 Respiratory 18 Rate Blood Pressure 89/24 O2 Sat by Pulse 99 Oximetry Constitutional: no acute distress, alert, other (Mild shortness of breath at rest.) Eyes: non-icteric ENT: oropharynx moist Neck: supple, no lymphadenopathy Effort: mildly labored Ascultation: Bilateral: diminished breath sounds, other (Prolonged expiratory phase.) Cardiovascular: irregular rhythm, murmur noted Gastrointestinal: normoactive bowel sounds, soft, non-tender Integumentary: normal Extremities: no cyanosis, no edema Neurologic: normal mental status, non-focal exam, pupils equal and round Psychiatric: mood appropriate, affect normal CBC and BMP: 05/11/21 05:54 05/15/21 04:13 ABG, PT/INR, D-dimer: ABG ABG pH 7.512 (7.320-7.450) H 05/12/21 12:05 POC ABG pCO2 42.2 mmHg (32.0-48.0) 05/12/21 12:05 POC ABG pO2 41.7 mmHg (83-108) L 05/12/21 12:05 POC ABG HCO3 33.1 05/12/21 12:05 ABG O2 Saturation 77.8 (0-100) 05/12/21 12:05 Abnormal lab findings: Abnormal Labs 05/07/21 05/07/21 05/07/21 17:30 17:30 17:30 RBC Hgb 9.2 L Hct 28.4 L MCV 72 L MCH 23 L MCHC RDW 19.6 H Lymph % (Auto) 5.0 L [place] % (Auto) 15.2 H Lymph # (Auto) 0.3 L [place] # (Auto) 1.0 H Seg Neutrophils % 76.8 H Seg Neuts % (Manual) Lymphocytes % (Manual) Eosinophils % (Manual) Lymphocytes # (Manual) ABG pH POC ABG pO2 ABG Hemoglobin ABG Oxyhemoglobin ABG Sodium ABG Potassium ABG Chloride ABG Glucose Sodium 134 L Potassium 2.7 L* Chloride 92.3 L Carbon Dioxide Creatinine Glucose Calcium 6.0 L Magnesium 1.00 L Iron AST 47 H Alkaline Phosphatase 276 H NT-Pro-B Natriuret Pep 2308 H Total Protein 4.4 L Albumin 2.2 L Arterial Blood Glucose 05/08/21 05/08/21 05/08/21 05:43 05:43 05:43 RBC Hgb 8.8 L Hct 28.2 L MCV 72 L MCH 22 L MCHC 31 L RDW 19.7 H Lymph % (Auto) [place] % (Auto) Lymph # (Auto) [place] # (Auto) Seg Neutrophils % Seg Neuts % (Manual) 85.0 H Lymphocytes % (Manual) 4.0 L Eosinophils % (Manual) 6.0 H Lymphocytes # (Manual) 0.2 L ABG pH POC ABG pO2 ABG Hemoglobin ABG Oxyhemoglobin ABG Sodium ABG Potassium ABG Chloride ABG Glucose Sodium 132 L Potassium Chloride 95.1 L Carbon Dioxide Creatinine Glucose Calcium 6.1 L Magnesium Iron 22 L AST 44 H Alkaline Phosphatase 248 H NT-Pro-B Natriuret Pep Total Protein 4.4 L Albumin 2.0 L Arterial Blood Glucose 05/09/21 05/09/21 05/10/21 05:27 05:27 05:47 RBC Hgb 8.4 L 8.7 L Hct 27.0 L 26.7 L MCV 72 L 72 L MCH 23 L 23 L MCHC 31 L RDW 19.6 H 20.4 H Lymph % (Auto) 3.8 L 5.3 L [place] % (Auto) 13.3 H 12.7 H Lymph # (Auto) 0.3 L 0.3 L [place] # (Auto) 1.0 H Seg Neutrophils % 79.6 H 76.5 H Seg Neuts % (Manual) Lymphocytes % (Manual) Eosinophils % (Manual) Lymphocytes # (Manual) ABG pH POC ABG pO2 ABG Hemoglobin ABG Oxyhemoglobin ABG Sodium ABG Potassium ABG Chloride ABG Glucose Sodium 133 L Potassium Chloride 97.1 L Carbon Dioxide Creatinine Glucose 102 H Calcium 6.7 L Magnesium 1.40 L Iron AST Alkaline Phosphatase NT-Pro-B Natriuret Pep Total Protein Albumin Arterial Blood Glucose 05/10/21 05/11/21 05/11/21 05:47 05:54 05:54 RBC 3.37 L Hgb 7.8 L Hct 24.1 L MCV 72 L MCH 23 L MCHC RDW 19.6 H Lymph % (Auto) 3.0 L [place] % (Auto) 12.4 H Lymph # (Auto) 0.2 L [place] # (Auto) 0.9 H Seg Neutrophils % 82.1 H Seg Neuts % (Manual) Lymphocytes % (Manual) Eosinophils % (Manual) Lymphocytes # (Manual) ABG pH POC ABG pO2 ABG Hemoglobin ABG Oxyhemoglobin ABG Sodium ABG Potassium ABG Chloride ABG Glucose Sodium 129 L 130 L Potassium Chloride 96.4 L 93.0 L Carbon Dioxide Creatinine 0.7 L Glucose Calcium 7.1 L 7.1 L Magnesium 1.50 L 1.50 L Iron AST Alkaline Phosphatase NT-Pro-B Natriuret Pep Total Protein Albumin Arterial Blood Glucose 05/12/21 05/12/21 05/14/21 05:23 12:05 05:43 RBC Hgb Hct MCV MCH MCHC RDW Lymph % (Auto) [place] % (Auto) Lymph # (Auto) [place] # (Auto) Seg Neutrophils % Seg Neuts % (Manual) Lymphocytes % (Manual) Eosinophils % (Manual) Lymphocytes # (Manual) ABG pH 7.512 H POC ABG pO2 41.7 L ABG Hemoglobin 8.5 L ABG Oxyhemoglobin 76.8 L ABG Sodium 127.8 L ABG Potassium 3.0 L ABG Chloride 93.0 L ABG Glucose 104 H Sodium 134 L 134 L Potassium 3.4 L 3.1 L Chloride 95.0 L 93.3 L Carbon Dioxide 35 H Creatinine 0.7 L Glucose Calcium 7.2 L 7.4 L Magnesium Iron AST Alkaline Phosphatase NT-Pro-B Natriuret Pep Total Protein Albumin Arterial Blood Glucose 104 H 05/15/21 04:13 RBC Hgb Hct MCV MCH MCHC RDW Lymph % (Auto) [place] % (Auto) Lymph # (Auto) [place] # (Auto) Seg Neutrophils % Seg Neuts % (Manual) Lymphocytes % (Manual) Eosinophils % (Manual) Lymphocytes # (Manual) ABG pH POC ABG pO2 ABG Hemoglobin ABG Oxyhemoglobin ABG Sodium ABG Potassium ABG Chloride ABG Glucose Sodium 135 L Potassium 3.4 L Chloride 94.5 L Carbon Dioxide 34 H Creatinine 0.7 L Glucose Calcium 7.8 L Magnesium Iron AST Alkaline Phosphatase NT-Pro-B Natriuret Pep Total Protein Albumin Arterial Blood Glucose
[2021-05-15] MEDS: APIXABAN 5 MG TAB PO SCH ×2 (12:13→21:54)
[2021-05-15] MEDS: ASPIRIN 81 MG TAB CHEW PO SCH (12:13)
[2021-05-15] MEDS: MIDODRINE 5 MG TAB PO SCH ×3 (12:13→17:05)
[2021-05-15] MEDS: COLCHICINE 0.6 MG TAB PO SCH (12:13)
[2021-05-15] MEDS: FAMOTIDINE 20 MG TAB PO SCH ×2 (12:14→21:55)
[2021-05-15] MEDS: ALPRAZolam 1 MG TAB PO SCH ×2 (12:23→21:55)
--- NOTE | 2021-05-15 14:33 | Progress Note ---
Assessment and Plan Assessment and plan: #Acute on chronic systolic right heart failure (cor pulmonale) -resolved #Pulmonary hypertension #Volume overload -improving -Continue strict I/O every shift, daily weight, low-sodium diet, fluid restriction ~1.5 L -Cardiology following; s/p dobutamine -TTE pending -Continue midodrine for low blood pressure -Bumex decreased to 1 mg twice daily #Acute hypoxic respiratory failure -resolved #History of COPD -currently on 3 L nasal cannula (baseline to home) -DME for Home O2 ordered for 3 L/min -continue nebulizer treatment #Atrial fibrillation -Continue Eliquis #Normocytic anemia -Hemoglobin stable #Hypomagnesemia -Will replete and monitor #Hypokalemia Will replete and monitor #Chronic malnutrition -Nutrition consulted #Anxiety -Continue Xanax (home medication) #Discharge planning -Patient reports homelessness, but is staying with someone -Attempted to contact housemate, unsuccessful -Social work following Disposition Plan: Home with oxygen. Total Time Spent with Patient (Minutes): 20 minutes History Interval history: No acute events overnight. Patient reports no satisfaction with food. Also reports increased urinary output but has noticed no stool in the nodule. Has improved shortness of breath. Hospitalist Physical - Physical exam Narrative exam: GENERAL: Well-developed well-nourished. Sitting on the side of the bed in no a cute distress. HEENT: Nasal cannula at 3 L/min. CHEST/LUNGS: CTAB on room air HEART/CARDIOVASCULAR: RRR. No murmur, rubs or gallops appreciated. ABDOMEN: +BS. NT/ND. NEURO: No focal motor deficit. Follows all commands and is ambulatory. MUSCULOSKELETAL: No joint effusion EXTREMITIES: No cyanosis or clubbing. Tense edema to the thigh bilaterally. PSYCH: Cooperative. - Constitutional Vitals: Temp Pulse Resp BP Pulse Ox 97.9 F 68 18 89/24 99 05/15/21 03:37 05/15/21 07:18 05/15/21 07:18 05/15/21 07:18 05/15/21 07:18 General appearance: Present: mild distress HEART Score - HEART Score EKG: Non-specific Age: 45-65 Risk factors: 1-2 risk factors Troponin: Troponin T < 0.010 ng/mL (0.00-0.029) 05/07/21 17:30 Troponin: < normal limit - Critical Actions Critical Actions: 4-6 pts:12-16.6% risk of adverse cardiac event. Should be admitted Results - Labs CBC & Chem 7: 05/11/21 05:54 05/15/21 04:13 Labs: Laboratory Last Values WBC 7.4 K/mm3 (4.5-11.0) 05/11/21 05:54 RBC 3.37 M/mm3 (3.65-5.03) L 05/11/21 05:54 Hgb 7.8 gm/dl (11.8-15.2) L 05/11/21 05:54 Hct 24.1 % (35.5-45.6) L 05/11/21 05:54 MCV 72 fl (84-94) L 05/11/21 05:54 MCH 23 pg (28-32) L 05/11/21 05:54 MCHC 32 % (32-34) 05/11/21 05:54 RDW 19.6 % (13.2-15.2) H 05/11/21 05:54 Plt Count 260 K/mm3 (140-440) 05/11/21 05:54 Lymph % (Auto) 3.0 % (13.4-35.0) L 05/11/21 05:54 [place] % (Auto) 12.4 % (0.0-7.3) H 05/11/21 05:54 Eos % (Auto) 1.5 % (0.0-4.3) 05/11/21 05:54 Baso % (Auto) 1.0 % (0.0-1.8) 05/11/21 05:54 Lymph # (Auto) 0.2 K/mm3 (1.2-5.4) L 05/11/21 05:54 [place] # (Auto) 0.9 K/mm3 (0.0-0.8) H 05/11/21 05:54 Eos # (Auto) 0.1 K/mm3 (0.0-0.4) 05/11/21 05:54 Baso # (Auto) 0.1 K/mm3 (0.0-0.1) 05/11/21 05:54 Add Manual Diff Complete 05/08/21 05:43 Total Counted 100 05/08/21 05:43 Seg Neutrophils % 82.1 % (40.0-70.0) H 05/11/21 05:54 Seg Neuts % (Manual) 85.0 % (40.0-70.0) H 05/08/21 05:43 Lymphocytes % (Manual) 4.0 % (13.4-35.0) L 05/08/21 05:43 Monocytes % (Manual) 5.0 % (0.0-7.3) 05/08/21 05:43 Eosinophils % (Manual) 6.0 % (0.0-4.3) H 05/08/21 05:43 Nucleated RBC % Not Reportable 05/08/21 05:43 Seg Neutrophils # 6.0 K/mm3 (1.8-7.7) 05/11/21 05:54 Seg Neutrophils # Man 4.9 K/mm3 (1.8-7.7) 05/08/21 05:43 Band Neutrophils # 0.0 K/mm3 05/08/21 05:43 Lymphocytes # (Manual) 0.2 K/mm3 (1.2-5.4) L 05/08/21 05:43 Abs React Lymphs (Man) 0.0 K/mm3 05/08/21 05:43 Monocytes # (Manual) 0.3 K/mm3 (0.0-0.8) 05/08/21 05:43 Eosinophils # (Manual) 0.3 K/mm3 (0.0-0.4) 05/08/21 05:43 Basophils # (Manual) 0.0 K/mm3 (0.0-0.1) 05/08/21 05:43 Metamyelocytes # 0.0 K/mm3 05/08/21 05:43 Myelocytes # 0.0 K/mm3 05/08/21 05:43 Promyelocytes # 0.0 K/mm3 05/08/21 05:43 Blast Cells # 0.0 K/mm3 05/08/21 05:43 WBC Morphology Not Reportable 05/08/21 05:43 Hypersegmented Neuts Not Reportable 05/08/21 05:43 Hyposegmented Neuts Not Reportable 05/08/21 05:43 Hypogranular Neuts Not Reportable 05/08/21 05:43 Smudge Cells Not Reportable 05/08/21 05:43 Toxic Granulation Not Reportable 05/08/21 05:43 Toxic Vacuolation Not Reportable 05/08/21 05:43 Dohle Bodies Not Reportable 05/08/21 05:43 Pelger-Huet Anomaly Not Reportable 05/08/21 05:43 Terrence Rods Not Reportable 05/08/21 05:43 Platelet Estimate Consistent w auto 05/08/21 05:43 Clumped Platelets Not Reportable 05/08/21 05:43 Plt Clumps, EDTA Not Reportable 05/08/21 05:43 Large Platelets Not Reportable 05/08/21 05:43 Giant Platelets Rare 05/08/21 05:43 Platelet Satelliting Not Reportable 05/08/21 05:43 Plt Morphology Comment Not Reportable 05/08/21 05:43 RBC Morphology Not Reportable 05/08/21 05:43 Dimorphic RBCs Not Reportable 05/08/21 05:43 Polychromasia Not Reportable 05/08/21 05:43 Hypochromasia 1+ 05/08/21 05:43 Poikilocytosis 1+ 05/08/21 05:43 Anisocytosis Not Reportable 05/08/21 05:43 Microcytosis Not Reportable 05/08/21 05:43 Macrocytosis Not Reportable 05/08/21 05:43 Spherocytes Not Reportable 05/08/21 05:43 Pappenheimer Bodies Not Reportable 05/08/21 05:43 Sickle Cells Not Reportable 05/08/21 05:43 Target Cells Not Reportable 05/08/21 05:43 Tear Drop Cells Not Reportable 05/08/21 05:43 Ovalocytes Few 05/08/21 05:43 Helmet Cells Not Reportable 05/08/21 05:43 Jimenez-Paisley Bodies Not Reportable 05/08/21 05:43 Celina Rings Not Reportable 05/08/21 05:43 [place] Cells Not Reportable 05/08/21 05:43 Bite Cells Not Reportable 05/08/21 05:43 Crenated Cell Not Reportable 05/08/21 05:43 Elliptocytes Few 05/08/21 05:43 Acanthocytes (Spur) Not Reportable 05/08/21 05:43 Rouleaux Not Reportable 05/08/21 05:43 Hemoglobin C Crystals Not Reportable 05/08/21 05:43 Schistocytes Not Reportable 05/08/21 05:43 Malaria parasites Not Reportable 05/08/21 05:43 Justin Bodies Not Reportable 05/08/21 05:43 Hem Pathologist Commnt No 05/08/21 05:43 ABG pH 7.512 (7.320-7.450) H 05/12/21 12:05 POC ABG pCO2 42.2 mmHg (32.0-48.0) 05/12/21 12:05 POC ABG pO2 41.7 mmHg (83-108) L 05/12/21 12:05 POC ABG HCO3 33.1 05/12/21 12:05 ABG O2 Saturation 77.8 (0-100) 05/12/21 12:05 POC ABG Base Excess 9.2 05/12/21 12:05 ABG Hemoglobin 8.5 (12.0-17.5) L 05/12/21 12:05 ABG Oxyhemoglobin 76.8 (94-98) L 05/12/21 12:05 ABG Methemoglobin 0.3 (0.0-1.5) 05/12/21 12:05 ABG Sodium 127.8 mmol/L (136.0-145.0) L 05/12/21 12:05 ABG Potassium 3.0 mmol/L (3.40-4.50) L 05/12/21 12:05 ABG Chloride 93.0 mmol/L (98-107) L 05/12/21 12:05 ABG Glucose 104 mg/dL (65-95) H 05/12/21 12:05 Carboxyhemoglobin 1.0 (0.5-1.5) 05/12/21 12:05 FiO2 % 21.0 05/12/21 12:05 Sodium 135 mmol/L (137-145) L 05/15/21 04:13 Potassium 3.4 mmol/L (3.6-5.0) L 05/15/21 04:13 Chloride 94.5 mmol/L (98-107) L 05/15/21 04:13 Carbon Dioxide 34 mmol/L (22-30) H 05/15/21 04:13 Anion Gap 10 mmol/L 05/15/21 04:13 BUN 16 mg/dL (9-20) 05/15/21 04:13 Creatinine 0.7 mg/dL (0.8-1.3) L 05/15/21 04:13 Estimated GFR > 60 ml/min 05/15/21 04:13 BUN/Creatinine Ratio 23 % 05/15/21 04:13 Glucose 95 mg/dL (75-100) 05/15/21 04:13 Calcium 7.8 mg/dL (8.4-10.2) L 05/15/21 04:13 Phosphorus 4.20 mg/dL (2.5-4.5) 05/14/21 05:43 Magnesium 1.70 mg/dL (1.7-2.3) 05/14/21 05:43 Iron 22 ug/dL (49-181) L 05/08/21 05:43 TIBC 255 mcg/dL (250-450) 05/08/21 05:43 % Saturation 8.63 % 05/08/21 05:43 Transferrin 230 mg/dl (180-329) 05/08/21 05:43 Total Bilirubin 0.50 mg/dL (0.1-1.2) 05/08/21 05:43 AST 44 units/L (5-40) H 05/08/21 05:43 ALT 40 units/L (7-56) 05/08/21 05:43 Alkaline Phosphatase 248 units/L (35-129) H 05/08/21 05:43 Troponin T < 0.010 ng/mL (0.00-0.029) 05/07/21 17:30 NT-Pro-B Natriuret Pep 2308 pg/mL (0-900) H 05/07/21 17:30 Total Protein 4.4 g/dL (6.3-8.2) L 05/08/21 05:43 Albumin 2.0 g/dL (3.9-5) L 05/08/21 05:43 Albumin/Globulin Ratio 0.8 % 05/08/21 05:43 Vitamin B12 257.7 pg/mL (211-911) 05/08/21 07:17 RBC Folic Acid >1000 ng/mL (>280) 05/08/21 05:43 Arterial Blood Glucose 104 mg/dL (65-95) H 05/12/21 12:05 Soto/IV: Voiding Method Urinal Active Medications - Current Medications Current Medications: Generic Name Dose Route Start Last Admin Trade Name Freq PRN Reason Stop Dose Admin Acetaminophen 650 mg 05/07/21 20:25 Acetaminophen 325 Mg Tab PO Q4H PRN Pain MILD(1-3)/Fever >100.5/ERAZO Hydrocodone Bitart/Acetaminophen 1 each 05/08/21 12:30 05/13/21 21:43 Hydrocodone/Acetaminophen 5-325 Mg Tab PO 1 each Q8H PRN Administration Pain, Moderate (4-6) Albuterol 2.5 mg 05/07/21 21:00 05/09/21 17:36 Albuterol 2.5 Mg/3 Ml Nebu IH 2.5 mg QID PRN Administration Shortness Of Breath Alprazolam 2 mg 05/09/21 22:00 05/15/21 12:23 Alprazolam 1 Mg Tab PO 2 mg BID PRERNA Administration Apixaban 5 mg 05/07/21 22:00 05/15/21 12:13 Apixaban 5 Mg Tab PO 5 mg BID PRERNA Administration Arformoterol Tartrate 15 mcg 05/10/21 20:00 05/15/21 09:45 Arformoterol 15 Mcg/2 Ml Nebu IH Not Given Q12HRT PRERNA Aspirin 81 mg 05/08/21 10:00 05/15/21 12:13 Aspirin 81 Mg Tab Chew PO 81 mg QDAY PRERNA Administration Atorvastatin Calcium 40 mg 05/07/21 22:00 05/14/21 22:18 Atorvastatin 20 Mg Tab PO 40 mg QHS PRERNA Administration Budesonide 0.5 mg 05/10/21 20:00 05/15/21 09:45 Budesonide 0.5 Mg/2 Ml Nebu IH Not Given Q12HRT PRERNA Bumetanide 1 mg 05/15/21 13:00 Bumetanide 1 Mg/4 Ml Inj IV BID@0600,1800 PRERNA Colchicine 0.6 mg 05/08/21 10:00 05/15/21 12:13 Colchicine 0.6 Mg Tab PO 0.6 mg DAILY PRERNA Administration Famotidine 20 mg 05/07/21 22:00 05/15/21 12:14 Famotidine 20 Mg Tab PO 20 mg BID PRERNA Administration Midodrine 10 mg 05/12/21 12:00 05/15/21 12:13 Midodrine 5 Mg Tab PO 10 mg TID@0800,1200,1600 PRERNA Administration Ondansetron HCl 4 mg 05/07/21 20:25 05/10/21 09:18 Ondansetron 4 Mg/2 Ml Inj IV 4 mg Q8H PRN Administration Nausea And Vomiting Sodium Chloride 10 ml 05/07/21 22:00 05/15/21 12:14 Sodium Chloride 0.9% 10 Ml Flush Syringe IV 10 ml BID PRERNA Administration Sodium Chloride 10 ml 05/07/21 20:25 Sodium Chloride 0.9% 10 Ml Flush Syringe IV PRN PRN LINE FLUSH Nutrition/Malnutrition Assess - Dietary Evaluation Nutrition/Malnutrition Findings: Nutrition Notes Start: 05/08/21 12:01 Freq: Status: Active Protocol: Document 05/08/21 12:21 GB (Rec: 05/08/21 12:36 GB [id number]) Nutrition Notes Need for Assessment generated from: MD Order Initial or Follow up Assessment Current Diagnosis COPD,Heart Failure Current Diet Cardiac Labs/Tests 05/08: Na 132 low [id number], Ca 6.1 Low [id number] improving, Fe 22 low, AST 44 elevated [id number] improving, AlkP 248 elevated [id number] improving Pertinent Medications furosemide, KCl, NaCl, MgSulfate/KCl @131ml/hr Height 5 ft 3 in Weight 85.1 kg [place] Body Weight (kg) 56.36 BMI 33.2 Intake Prior to Admission Good Weight change and time frame No reported change in weight in H&P Weight Status Appropriate Subjective/Other Information Per admission, fluid retention r/t chronic heart complications. No reported change in PO intake, weight, strength, mobility, or compromised skin integrity Percent of energy/protein needs met: 75-100% with po intake of meals Burn Absent Trauma Absent GI Symptoms Diarrhea Food Allergy No Skin Integrity/Comment no reported complications Current % PO Good (75-100%) Minimum of two criteria No physical signs of malnutrition Protein-Calorie Malnutrition N\A #1 Nutrition Diagnosis Predicted suboptimal energy intake Comments: related to SOB Etiology related to fluid retention, chronic heart complications As Evidenced by Signs and Symptoms admit recommended from patients' primary for fluid retention/SOB Diagnosis Progress(for reassessment Continues documentation) Is patient on ventilator? No Is Patient Ambulatory and/or Out of Bed Yes REE-(Wilcox-St. Jeor-ambulatory/OOB) [ NUTR.[id number]] Kcal/Kg value to use for calculation 20 Approximate Energy Requirements Using 1702 kcal/Kg Calculation Used for Recommendations Kcal/kg Additional Notes Energy needs met by po intake of meals. BMI is in the overweight to obesity I range fluctuating with relation to fluid retention. Nutritional supplement is not recommended. Nutrition Intervention Nutrition Support: Discontinue nutritional supplement beverage ensure BID . Goal #1 PO intake of meals to continue at 50% or greater daily Goal #2 Weight to maintain within overweight BMI range during LOS Anticipated Discharge Needs: Monitoring of high sodium containing foods (preprocessed and packaged) Follow-Up By: 05/15/[address] available for education if patient requests.
[2021-05-15] MEDS: HYDROcodone/ACETAMINOPHEN 5-325 MG TAB PO PRN (21:56)
[2021-05-16 09:11] VITALS: BP 103/46
[2021-05-16] MEDS: ARFORMOTEROL 15 MCG/2 ML NEBU IH SCH (09:53)
[2021-05-16] MEDS: BUDESONIDE 0.5 MG/2 ML NEBU IH SCH (09:53)
[2021-05-16 09:54] LABS: BUN/Creatinine Ratio 24; Blood Urea Nitrogen 19 mg/dL (9-20); Hemolysis Index 0
[2021-05-16] MEDS: ASPIRIN 81 MG TAB CHEW PO SCH (10:44)
[2021-05-16] MEDS: COLCHICINE 0.6 MG TAB PO SCH (10:44)
[2021-05-16] MEDS: MIDODRINE 5 MG TAB PO SCH (10:44)
[2021-05-16] MEDS: APIXABAN 5 MG TAB PO SCH (10:45)
[2021-05-16] MEDS: HYDROcodone/ACETAMINOPHEN 5-325 MG TAB PO PRN (10:45)
[2021-05-16] MEDS: ALPRAZolam 1 MG TAB PO SCH (10:45)
[2021-05-16] MEDS: FAMOTIDINE 20 MG TAB PO SCH (10:45)
--- NOTE | 2021-05-16 11:29 | Progress Note ---
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 Hx of VT and persistent atrial fibrillation on Eliquis for anticoagulation Hypotension on midodrine Presence of single chamber ICD ([employer]) Hx of COPD Tobacco abuse Echocardiogram this presentation shows evidence of severe cor pulmonale, with dilated right heart chambers and moderate severity pulmonary hypertension. The left ventricle is only mildly dilated with ejection fraction 40 to 45%. 2017 Echo severe dilated right heart chambers but ejection fraction 55-60%. 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 Medical therapy recommended. Recommend: Continue medical therapy including optimal diuretic therapy as tolerated. Otherwise, conservative cardiac management. Subjective Date of service: 05/16/21 Interval history: No interval cardiac changes. Objective Vital Signs Temp Pulse Pulse Resp Resp BP Pulse Ox 05/16/21 09:54 64 20 99 05/16/21 08:48 97.1 F L 60 18 103/46 100 05/16/21 03:39 98.1 F 62 19 101/47 91 05/16/21 03:10 96 05/15/21 23:27 97.9 F 60 19 105/26 100 05/15/21 23:25 93 05/15/21 23:24 68 18 05/15/21 21:56 20 05/15/21 21:04 73 05/15/21 19:29 95 05/15/21 19:28 98.0 F 73 16 106/28 89 05/15/21 16:02 97.4 F L 65 20 111/28 98 05/15/21 14:00 60 05/15/21 11:53 98.3 F 61 18 102/47 100 - Physical Examination General: No Apparent Distress HEENT: Positive: PERRL Neck: Positive: neck supple Cardiac: Positive: Other (ventricular paced) Lungs: Positive: Decreased Breath Sounds Neuro: Positive: Grossly Intact - Labs and Meds Comprehensive Metabolic Panel 05/16/21 Range/Units 08:55 Sodium 135 L (137-145) mmol/L Potassium 4.1 D (3.6-5.0) mmol/L Chloride 92.9 L (98-107) mmol/L Carbon Dioxide 33 H (22-30) mmol/L BUN 19 (9-20) mg/dL Creatinine 0.8 (0.8-1.3) mg/dL Glucose 130 H (75-100) mg/dL Calcium 8.0 L (8.4-10.2) mg/dL
--- NOTE | 2021-05-16 12:56 | Discharge Summary ---
Providers - Providers Date of Admission: 05/07/21 18:27 Date of discharge: 05/16/21 Attending physician: SHELDON ARRIAGA MD 05/07/21 20:40 Consult to Physician [CONS] Routine Comment: Consulting Provider: ARMANDO LANCE Physician Instructions: Reason For Exam: CHF exacerbation 05/10/21 09:58 Consult to Physician [CONS] Routine Comment: Consulting Provider: DEVORAH GAVIN Physician Instructions: Reason For Exam: COPD EXAC Hospitalization Reason for admission: Shortness of breath Condition: Stable Hospital course: 60-year-old male with history of atrial fibrillation and tetralogy of Fallot status post repair who presented with increasing shortness of breath and orthopnea. He was found to be hypoxic and was admitted for CHF exacerbation and acute hypoxic respiratory failureEcho on 05/08 showed severe cor pulmonale. Dobutamine was started and later discontinued with improvement in the patient's volume overload status. Changes were made to his diuretic regimen, until he was discharged with 1 mg Bumex twice daily. He was evaluated for increasing oxygen requirement and was discharged with 3 L of home oxygen. He was discharged with instruction to follow-up with cardiology and to establish primary care. Disposition: 01 HOME / SELF CARE / HOMELESS Final Discharge Diagnosis (Prints w/discharge instructions): Acute on chronic systolic right heart failure. Pulmonary hypertension. Volume overload. Acute on chronic hypoxic respiratory failure. Atrial fibrillation Time spent for discharge: 20 minutes Core Measure Documentation - Palliative Care Palliative Care/ Comfort Measures: Not Applicable - Core Measures Any of the following diagnoses?: heart failure - Heart Failure Discharge Requirements MATHIEU/ARB for LVSD if EF <40%: Not Applicable Beta augie at discharge: Yes Exam - Physical Exam Narrative exam: GENERAL: Well-developed well-nourished. Sitting on the side of the bed in no acute distress. CHEST/LUNGS: CTAB on room air HEART/CARDIOVASCULAR: RRR. No murmur, rubs or gallops appreciated. ABDOMEN: +BS. NT/ND. NEURO: No focal motor deficit. Follows all commands and is ambulatory. MUSCULOSKELETAL: No joint effusion EXTREMITIES: No cyanosis or clubbing. Improved lower extremity edema. PSYCH: Cooperative. - Constitutional Vitals: Temp Pulse Resp BP Pulse Ox 97.1 F L 60 20 103/46 98 05/16/21 08:48 05/16/21 10:00 05/16/21 09:54 05/16/21 08:48 05/16/21 10:00 Plan Activity: advance as tolerated Diet: low salt Special Instructions: home oxygen via Assessment: Improved volume status. Patient advised to continue with regimen at home and to follow-up with cardiology as soon as possible. Order for home oxygen placed prior to discharge. Follow up with: KIM GARCIA MD [Staff Physician] - 7 Days Prescriptions: AtorvaSTATin [Lipitor] 40 mg PO QHS 30 Days #60 tablet Aspirin [Aspirin BABY CHEW TAB] 81 mg PO QDAY 30 Days #30 Bumetanide [Bumex 1 mg tab] 1 mg PO BID 30 Days #60 tab Apixaban [Eliquis] 5 mg PO BID 30 Days #60 Metoprolol [Lopressor TAB] 25 mg PO DAILY 30 Days #30 HYDROcodone/APAP 5-325 [[place] 5-325 mg TAB] 1 each PO Q6HR PRN 5 Days #20 tablet PRN Reason: Pain, Moderate (4-6) Albuterol Mdi (or & Nicu Only) [ProAir HFA Inhaler] 2 puff IH QID PRN 30 Days #2 inha PRN Reason: Shortness Of Breath Midodrine [Proamatine] 10 mg PO TID@0800,1200,1600 30 Days #180 tablet Budesonide/Formoterol Fumarate [Symbicort 160-4.5 Mcg Inhaler] 10.2 gm IH BID 30 Days #2 hfa.aer.ad
== END 2021-05-16 14:04 | disposition home or self-care (01) | DRG 189 ==
LOC: ED 16:46 → 4A 18:27
PROVIDERS: ADMIT Internal Medicine; ATTEND Student in an Organized Health Care Education/Training Program
PROC: 4A033R1 Measurement of Arterial Saturation, Peripheral, Percutaneous Approach (ICD-10-PCS; principal; 2021-05-12)
DX: J96.21 Acute and chronic respiratory failure with hypoxia (principal); I11.0 Hypertensive heart disease with heart failure; I50.43 Acute on chronic combined systolic (congestive) and diastolic (congestive) heart failure; J44.9 Chronic obstructive pulmonary disease, unspecified; E44.0 Moderate protein-calorie malnutrition; Z68.32 Body mass index [BMI] 32.0-32.9, adult; D64.9 Anemia, unspecified; I48.20 Chronic atrial fibrillation, unspecified; I27.81 Cor pulmonale (chronic); Z88.5 Allergy status to narcotic agent; Z88.8 Allergy status to other drugs, medicaments and biological substances; E87.1 Hypo-osmolality and hyponatremia; Z79.82 Long term (current) use of aspirin; Z87.891 Personal history of nicotine dependence; Z95.810 Presence of automatic (implantable) cardiac defibrillator; E87.6 Hypokalemia; E83.42 Hypomagnesemia; I27.20 Pulmonary hypertension, unspecified; F41.9 Anxiety disorder, unspecified; E66.9 Obesity, unspecified; I42.9 Cardiomyopathy, unspecified
CPT/HCPCS: 36415; 36600; 71046; 80048; 80053; 82607; 82747; 82805; 83550; 83735; 83880; 84100; 84484; 85007; 85025; 93005; 93306; 94640; 94760; G0378; J0610; J1170; J1250; J1940; J2405; J3475; J3480; J7030; J7040

== ENCOUNTER 2021-10-13 06:01 | Emergency (ER) | payer MEDICAID ==
[2021-10-13] MEDS ORDERED: TETANUS,DIPH,PERTUSS(ACELL) VACCINE 0.5 ML SYRINGE IM ONE (06:37)
--- NOTE | 2021-10-13 06:37 | Emergency Department Report ---
- General Chief complaint: Skin/Abscess/Foreign Body Stated complaint: PENILE ENTRAPMENT Time Seen by Provider: 10/13/21 06:13 Source: patient Mode of arrival: Ambulatory Limitations: No Limitations - History of Present Illness Initial comments: Patient presents secondary to getting his penis caught in his zipper. He admits that he was custodial asleep. He had to go to the bathroom and knew that he was going to have to hurry otherwise he was going to urinate on himself. In a mares, after urinating, he proceeded to zip his pants and caught the shaft of his penis and the zipper. This happened approximately 2 hours prior to arrival. He is complaining of penile pain. He has no other injury and no other complaint. Immunizations are not up-to-date. He has never had this happen recently. He states that as a child he had this happen once. - Related Data Home Medications Medication Instructions Recorded Confirmed Last Taken Potassium Chloride [Klor-Con 8] 20 meq PO QDAY 01/20/14 05/07/21 03/15/18 Previous Rx's Medication Instructions Recorded Last Taken Type Albuterol Mdi (or & Nicu Only) 2 puff IH QID PRN 30 Days #2 inha 05/16/21 Unknown Rx [ProAir HFA Inhaler] Apixaban [Eliquis] 5 mg PO BID 30 Days #60 05/16/21 Unknown Rx Aspirin [Aspirin BABY CHEW TAB] 81 mg PO QDAY 30 Days #30 05/16/21 Unknown Rx AtorvaSTATin [Lipitor] 40 mg PO QHS 30 Days #60 tablet 05/16/21 Unknown Rx Budesonide/Formoterol Fumarate 10.2 gm IH BID 30 Days #2 05/16/21 Unknown Rx [Symbicort 160-4.5 Mcg Inhaler] hfa.aer.ad Bumetanide [Bumex 1 mg tab] 1 mg PO BID 30 Days #60 tab 05/16/21 Unknown Rx HYDROcodone/APAP 5-325 [[place] 1 each PO Q6HR PRN 5 Days #20 05/16/21 Unknown Rx 5-325 mg TAB] tablet Metoprolol [Lopressor TAB] 25 mg PO DAILY 30 Days #30 05/16/21 Unknown Rx Midodrine [Proamatine] 10 mg PO TID@0800,1200,1600 30 05/16/21 Unknown Rx Days #180 tablet Allergies Allergy/AdvReac Type Severity Reaction Status Date / Time acetaminophen [From Percocet] AdvReac Nausea Verified 05/07/21 18:34 hydrocodone AdvReac Nausea Verified 05/07/21 18:34 tramadol AdvReac Nausea Verified 05/07/21 18:34 Abscess Boil HPI - HPI Chief Complaint: Skin/Abscess/Foreign Body Stated Complaint: PENILE ENTRAPMENT Time Seen by Provider: 10/13/21 06:13 Home Medications: Home Medications Medication Instructions Recorded Confirmed Last Taken Potassium Chloride [Klor-Con 8] 20 meq PO QDAY 01/20/14 05/07/21 03/15/18 Previous Rx's Medication Instructions Recorded Last Taken Type Albuterol Mdi (or & Nicu Only) 2 puff IH QID PRN 30 Days #2 inha 05/16/21 Unknown Rx [ProAir HFA Inhaler] Apixaban [Eliquis] 5 mg PO BID 30 Days #60 05/16/21 Unknown Rx Aspirin [Aspirin BABY CHEW TAB] 81 mg PO QDAY 30 Days #30 05/16/21 Unknown Rx AtorvaSTATin [Lipitor] 40 mg PO QHS 30 Days #60 tablet 05/16/21 Unknown Rx Budesonide/Formoterol Fumarate 10.2 gm IH BID 30 Days #2 05/16/21 Unknown Rx [Symbicort 160-4.5 Mcg Inhaler] hfa.aer.ad Bumetanide [Bumex 1 mg tab] 1 mg PO BID 30 Days #60 tab 05/16/21 Unknown Rx HYDROcodone/APAP 5-325 [[place] 1 each PO Q6HR PRN 5 Days #20 05/16/21 Unknown Rx 5-325 mg TAB] tablet Metoprolol [Lopressor TAB] 25 mg PO DAILY 30 Days #30 05/16/21 Unknown Rx Midodrine [Proamatine] 10 mg PO TID@0800,1200,1600 30 05/16/21 Unknown Rx Days #180 tablet Allergies/Adverse Reactions: Allergies Allergy/AdvReac Type Severity Reaction Status Date / Time acetaminophen [From Percocet] AdvReac Nausea Verified 05/07/21 18:34 hydrocodone AdvReac Nausea Verified 05/07/21 18:34 tramadol AdvReac Nausea Verified 05/07/21 18:34 ED Review of Systems ROS: Stated complaint: PENILE ENTRAPMENT Other details as noted in HPI Comment: All other systems reviewed and negative Constitutional: denies: fever Eyes: denies: eye pain ENT: denies: throat pain Respiratory: denies: cough Cardiovascular: denies: chest pain Gastrointestinal: denies: abdominal pain Genitourinary: as per HPI Musculoskeletal: denies: back pain Skin: denies: rash Neurological: denies: headache Hematological/Lymphatic: denies: easy bruising ED Past Medical Hx - Past Medical History Previous Medical History?: Yes Hx Hypertension: Yes Hx Heart Attack/AMI: No Hx Congestive Heart Failure: Yes (2017) Hx Diabetes: No Hx Liver Disease: No Hx Asthma: Yes Hx COPD: Yes (INHALER PRN) Hx Tuberculosis: No Hx HIV: No Additional medical history: Hypotension - Surgical History Past Surgical History?: Yes Hx Coronary Stent: No Hx Open Heart Surgery: Yes (X 2 CHILD, CABG 2013) Hx Pacemaker: Yes Hx Internal Defibrillator: Yes Hx Appendectomy: No Additional Surgical History: difibrillator heart valve replacement. heart bypass @ 6 months old. open heart at [facility] @ 12 years old. open heart x 5 @ [facility]. pig valve, pacemaker - Social History Smoking Status: Former Smoker - Medications Home Medications: Home Medications Medication Instructions Recorded Confirmed Last Taken Type Potassium Chloride [Klor-Con 8] 20 meq PO QDAY 01/20/14 05/07/21 03/15/18 History Albuterol Mdi (or & Nicu Only) 2 puff IH QID PRN 30 Days #2 inha 05/16/21 Unknown Rx [ProAir HFA Inhaler] Apixaban [Eliquis] 5 mg PO BID 30 Days #60 05/16/21 Unknown Rx Aspirin [Aspirin BABY CHEW TAB] 81 mg PO QDAY 30 Days #30 05/16/21 Unknown Rx AtorvaSTATin [Lipitor] 40 mg PO QHS 30 Days #60 tablet 05/16/21 Unknown Rx Budesonide/Formoterol Fumarate 10.2 gm IH BID 30 Days #2 05/16/21 Unknown Rx [Symbicort 160-4.5 Mcg Inhaler] hfa.aer.ad Bumetanide [Bumex 1 mg tab] 1 mg PO BID 30 Days #60 tab 05/16/21 Unknown Rx HYDROcodone/APAP 5-325 [[place] 1 each PO Q6HR PRN 5 Days #20 05/16/21 Unknown Rx 5-325 mg TAB] tablet Metoprolol [Lopressor TAB] 25 mg PO DAILY 30 Days #30 05/16/21 Unknown Rx Midodrine [Proamatine] 10 mg PO TID@0800,1200,1600 30 05/16/21 Unknown Rx Days #180 tablet ED Physical Exam - General Limitations: No Limitations, Other (Pulse ox noted and normal.) General appearance: alert, in no apparent distress, other (Uncomfortable) - Head Head exam: Present: atraumatic, normocephalic - Eye Eye exam: Present: normal appearance, EOMI - ENT ENT exam: Present: normal exam - Neck Neck exam: Present: normal inspection - Respiratory Respiratory exam: Absent: respiratory distress - Cardiovascular Cardiovascular Exam: Absent: JVD - GI/Abdominal GI/Abdominal exam: Present: soft - External exam: Present: other (The penile shaft is caught in the zipper. This is on both sides of his upper. There is local tenderness.) - Extremities Exam Extremities exam: Present: normal capillary refill, pedal edema (Bilateral) - Back Exam Back exam: Absent: CVA tenderness (R), CVA tenderness (L) - Neurological Exam Neurological exam: Present: alert, oriented X3 - Psychiatric Psychiatric exam: Present: normal affect, normal mood - Skin Skin exam: Present: warm, dry ED Course Vital Signs 10/13/21 06:17 Temperature 98.0 F Pulse Rate 70 Respiratory 16 Rate Blood Pressure 92/25 [Right] O2 Sat by Pulse 100 Oximetry - Reevaluation(s) Reevaluation #1: 10/13/21 06:47 Zipper was removed and the penile skin was evaluated. There is no laceration requiring suture repair. - Procedure Description Procedures done: Procedure note: Foreign body removal. Indication: Penile entrapment and super. Patient had been anesthetized using 1% lidocaine without epinephrine as a local anesthetic to the dorsum of the penis. After there was good anesthesia, the zipper and clothing were cut off. The zipper was then pulled free of the penile shaft. The skin was bruised and contused, but intact. There is no laceration noted. Wound was then cleaned. There were no complications. Patient tolerated procedure well. ED Medical Decision Making - Medical Decision Making Patient presented with a foreign body entrapment of his penis. His penis was trapped in the zipper. This was removed. There is no laceration to the shaft of the penis requiring suture repair. Patient had tolerated this without difficulty. Tetanus status was updated and the patient was discharged. Critical Care Time: No Critical care attestation.: If time is entered above; I have spent that time in minutes in the direct care of this critically ill patient, excluding procedure time. ED Disposition Clinical Impression: Injury of penis due to zipper Disposition: 01 HOME / SELF CARE / HOMELESS Is pt being admited?: No Condition: Stable Additional Instructions: Keep the skin clean. Wash with soapy water. Return for problems. Follow-up with your family doctor for recheck. Continue home medication. Referrals: PRIMARY MD EDWIN [Primary Care Provider] - 3-5 Days ZENAIDA DELUCA MD [Staff Physician] - 3-5 Days
[2021-10-13 07:40] VITALS: BP 101/78
== END 2021-10-13 07:41 | disposition home or self-care (01) ==
LOC: ED 06:01
DX: S30.852A Superficial foreign body of penis, initial encounter (principal); I10 Essential (primary) hypertension; Z88.6 Allergy status to analgesic agent; Z88.5 Allergy status to narcotic agent; X58.XXXA Exposure to other specified factors, initial encounter; Y93.89 Activity, other specified; Y92.89 Other specified places as the place of occurrence of the external cause; Y99.8 Other external cause status
CPT/HCPCS: 90471; 90715; 99282